=== PATIENT | female | born 1955 | race Caucasian/White ===

== ENCOUNTER 2017-02-11 21:53 | Emergency (ER) | payer MEDICARE, BC, OTHER ==
[~2017-02-11] VITALS: Ht 121.9 cm; Wt 68.0 kg
[~2017-02-11 21:53] MED LIST: ALBU8.5H6 IH; ALBU8.5H8 IH; Acetaminophen PO; BACL20TA PO; CIPR500T94 PO; ECON15CR TP; ESOM20CA PO; FLUT16SP2 NS; FLUT9.9S NS; HYDR-2762 PO; LORA10TA68 PO; MELO15TA23 PO; NYST15CR2 TP; OXYB10TA PO; OXYB5SYR2 PO; OXYB5TAB7 PO; Sulfamethoxazole/Trimethoprim PO
[2017-02-11 21:57] VITALS: BP 156/95
--- NOTE | 2017-02-11 23:16 | PHYS DOC ---
General Chief Complaint: URINE CATHETER PROBLEM Stated Complaint: CATHERTER PROB Time Seen by MD: 21:57 Source: patient, old records Exam Limitations: no limitations Problems: History of Present Illness Initial Comments Pt is 62/F to ED via EMS for bonilla problem. Pt states approx 2200 tonight rolled over in bed and awoke to wet linens. Upon inspection found her bonilla catheter to be accidentally removed. Pt is paraplegic with mcc bonilla catheter dependence. No other c/o. Timing/Duration: 1/2 hour Severity: moderate Modifying Factors: improves with other Associated Symptoms: denies symptoms Allergies: Coded Allergies: penicillin G (Verified Allergy, Severe, Swell up/red., 09/26/15) levofloxacin (Verified Allergy, Intermediate, 09/26/15) aspirin (Verified Adverse Reaction, Intermediate, N/V, 09/26/15) enoxaparin sodium (Verified Adverse Reaction, Intermediate, Mouth swells. , 09/26/15) prochlorperazine edisylate (Verified Adverse Reaction, Intermediate, "I feel high", 09/26/15) prochlorperazine maleate (Verified Adverse Reaction, Intermediate, ) Past Medical History Medical History: asthma, urinary tract infection, other (MS, paraplegia) Surgical History: noncontributory Family History Significant Family History: no pertinent family hx Social History Smoker: non-smoker Alcohol: none Drugs: none Physical Exam General Appearance: no apparent distress Ear, Nose, Throat: hearing grossly normal, normal pharynx, other (severe dental caries) Neck: non-tender, supple Respiratory: normal breath sounds, no respiratory distress Gastrointestinal: non tender, soft Neurologic/Psychiatric: 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 Pt denies c/o, requesting a ride home. Departure Time of Disposition: 23:15 Disposition: 01 HOME, SELF-CARE Diagnosis: Bonilla Catheter Problem Condition: IMPROVED Patient Instructions: Bonilla Catheter Care, Adult Additional Instructions: Continue current medications, plan of care, and Bonilla catheter maintenance. Follow up with your doctor and return to ED as needed. NOELLE VEAG DO February 11, 2017 23:16
== END 2017-02-12 01:04 | disposition home or self-care (01) ==
LOC: ER 21:53
DX: T83.028A Displacement of other urinary catheter, initial encounter (principal); J45.909 Unspecified asthma, uncomplicated; G82.20 Paraplegia, unspecified; Z87.440 Personal history of urinary (tract) infections; Z88.0 Allergy status to penicillin; Z88.1 Allergy status to other antibiotic agents; Z88.6 Allergy status to analgesic agent; Z88.8 Allergy status to other drugs, medicaments and biological substances
CPT/HCPCS: 51702; 99284-25

== ENCOUNTER 2017-03-16 10:09 | Emergency (ER) | payer MEDICARE, BC, OTHER ==
[~2017-03-16] VITALS: Ht 137.2 cm; Wt 64.0 kg
[2017-03-16 10:22] VITALS: BP 156/95
--- NOTE | 2017-03-16 11:32 | PHYS DOC ---
Text Text Bonilla catheter replaced without difficulty. Patient discharged home with bonilla care instructions No other complaints at this time. General Chief Complaint: URINE CATHETER PROBLEM Stated Complaint: CATHETER PROBLEM Time Seen by MD: 10:20 Source: patient Exam Limitations: no limitations Problems: History of Present Illness Initial Comments Patient has chronic indwelling bonilla catheter secondary to MS. She had spontaneous falling out of the bonilla some time during the night last night. She is presenting with request for replacement of bonilla catheter. Timing/Duration: this morning Prior Genitourinary Problems: similar symptoms Associated Symptoms: denies symptoms Allergies: Coded Allergies: penicillin G (Verified Allergy, Severe, Swell up/red., 09/26/15) levofloxacin (Verified Allergy, Intermediate, 09/26/15) aspirin (Verified Adverse Reaction, Intermediate, N/V, 09/26/15) enoxaparin sodium (Verified Adverse Reaction, Intermediate, Mouth swells. , 09/26/15) prochlorperazine edisylate (Verified Adverse Reaction, Intermediate, "I feel high", 09/26/15) prochlorperazine maleate (Verified Adverse Reaction, Intermediate, ) Past Medical History Medical History: other (MS) Family History Significant Family History: no pertinent family hx Social History Smoker: non-smoker Alcohol: none Drugs: none Review of Systems Constitutional: no symptoms reported Genitourinary: no symptoms reported Musculoskeletal: no symptoms reported All Other Systems: Reviewed and Negative Physical Exam General Appearance: WD/WN, no apparent distress Cardiovascular/Respiratory: regular rate, rhythm, normal breath sounds Pelvic: external exam normal Back: normal inspection Extremities: other (flaccidity of the lower extremities. No noted edema. No rashes. 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
== END 2017-03-16 13:04 | disposition home or self-care (01) ==
LOC: ER 10:09
DX: T83.028A Displacement of other urinary catheter, initial encounter (principal); G35 Multiple sclerosis; Z88.0 Allergy status to penicillin; Z88.1 Allergy status to other antibiotic agents; Z88.6 Allergy status to analgesic agent; Z88.8 Allergy status to other drugs, medicaments and biological substances
CPT/HCPCS: 51702; 99284-25

== ENCOUNTER 2017-05-10 08:34 | Emergency (ER) | payer MEDICARE, BC, OTHER ==
[~2017-05-10] VITALS: Ht 137.2 cm; Wt 64.0 kg
--- NOTE | 2017-05-10 09:01 | PHYS DOC ---
General Chief Complaint: CATHETER CHANGE Stated Complaint: CATHETER CHANGE Time Seen by MD: 08:36 Source: patient, old records Exam Limitations: no limitations Problems: History of Present Illness Initial Comments Patient is a 62-year-old female with history of MS and fully dependent who comes to the department complaining of a Bonilla catheter problem. Patient states that she thinks the balloon deflated on her Bonilla overnight and it slipped out. She has come to the emergency department requesting reinsertion of her Bonilla catheter. She denies any complaints at all and doesn't want any other testing or treatments. Timing/Duration: 4-6 hours Severity: mild Modifying Factors: improves with other Associated Symptoms: denies symptoms Allergies: Coded Allergies: penicillin G (Verified Allergy, Severe, Swell up/red., 09/26/15) levofloxacin (Verified Allergy, Intermediate, 09/26/15) aspirin (Verified Adverse Reaction, Intermediate, N/V, 09/26/15) enoxaparin sodium (Verified Adverse Reaction, Intermediate, Mouth swells. , 09/26/15) prochlorperazine edisylate (Verified Adverse Reaction, Intermediate, "I feel high", 09/26/15) prochlorperazine maleate (Verified Adverse Reaction, Intermediate, ) Past Medical History Medical History: asthma, urinary tract infection, other (MS) Surgical History: noncontributory Family History Significant Family History: no pertinent family hx Social History Smoker: non-smoker Alcohol: none Drugs: none Review of Systems Constitutional: denies chills, denies fever Respiratory: denies cough, denies shortness of breath Cardiovascular: denies chest pain, denies palpitations Gastrointestinal: denies diarrhea, denies vomiting Genitourinary: see HPI Musculoskeletal: denies back pain, denies joint swelling, denies neck pain Psychiatric/Neurological: denies headache, denies numbness, denies paresthesia Physical Exam General Appearance: WD/WN, no apparent distress Ear, Nose, Throat: hearing grossly normal, normal ENT inspection Neck: non-tender, supple Gastrointestinal: non tender, soft Back: no CVA tenderness, no vertebral tenderness Neurologic/Psychiatric: alert, normal mood/affect, oriented x 3 Skin: normal color, warm/dry Orders, Labs, Meds RN reinserted catheter without issue. Patient expressed gratitude and requests discharge from the facility. Departure Time of Disposition: 08:59 Disposition: 01 HOME, SELF-CARE Diagnosis: bonilla catheter problem Condition: IMPROVED Patient Instructions: Bonilla Catheter Care, Adult Additional Instructions: Continue current meds. Resume Bonilla catheter care. Follow up with your doctor in 7-10 days for recheck. Return to ED with new or changing symptoms. NOELLE VEGA DO May 10, 2017 09:01
[2017-05-10 09:20] VITALS: BP 166/95
== END 2017-05-10 09:23 | disposition home or self-care (01) ==
LOC: ER 08:34
DX: T83.098A Other mechanical complication of other urinary catheter, initial encounter (principal); J45.909 Unspecified asthma, uncomplicated; Z87.440 Personal history of urinary (tract) infections; Z88.8 Allergy status to other drugs, medicaments and biological substances; Z88.6 Allergy status to analgesic agent; Z88.1 Allergy status to other antibiotic agents; Z88.0 Allergy status to penicillin
CPT/HCPCS: 51702; 99284-25

== ENCOUNTER 2018-03-28 10:21 | Emergency (ER) | payer MEDICARE, BC, OTHER ==
[~2018-03-28] VITALS: Ht 137.2 cm; Wt 54.4 kg
--- NOTE | 2018-03-28 10:34 | PHYS DOC ---
Past History Past Medical History: Asthma, UTI, Other Past Surgical History: Other Smoking: Non-smoker Alcohol Use: None Drug Use: None Adult General Chief Complaint Chief Complaint: PAIN ON URINATION HPI HPI Patient is a 63-year-old female who presents with EMS for evaluation of dysuria and concern for UTI. She has a Chang catheter in place which was changed most recently 2 weeks ago. She has a history of MS and lives alone and states that she has some help a few hours a day as well as a power chair. She has some mild suprapubic discomfort and noticed that her urine has been cloudy and there is been more sediment than usual. She is alert and oriented 4, calm, and appears to be in no distress this time. Review of Systems Review of Systems Constitutional: Denies fever or chills [] Eyes: Denies change in visual acuity, redness, or eye pain [] HENT: Denies nasal congestion or sore throat [] Respiratory: Denies cough or shortness of breath [] Cardiovascular: No additional information not addressed in HPI [] GI: Denies abdominal pain, nausea, vomiting, bloody stools or diarrhea [] : +dysuria Musculoskeletal: Denies back pain or joint pain [] Integument: Denies rash or skin lesions [] Neurologic: Denies headache, focal weakness or sensory changes [] paraplegic Endocrine: Denies polyuria or polydipsia [] All other systems were reviewed and found to be within normal limits, except as documented in this note. Allergies Allergies Allergies Coded Allergies Type Severity Reaction Last Updated Verified penicillin G Allergy Severe Swell up/red. 09/26/15 Yes levofloxacin Allergy Intermediate 09/26/15 Yes aspirin Adverse Reaction Intermediate N/V 09/26/15 Yes enoxaparin sodium Adverse Reaction Intermediate Mouth swells. 09/26/15 Yes prochlorperazine edisylate Adverse Reaction Intermediate "I feel high" Yes prochlorperazine maleate Adverse Reaction Intermediate 09/26/15 Yes Physical Exam Physical Exam Constitutional: Well developed, well nourished, no acute distress, non-toxic appearance. [] HENT: Normocephalic, atraumatic, bilateral external ears normal, oropharynx moist, no oral exudates, nose normal. [] Eyes: PERRLA, EOMI, conjunctiva normal, no discharge. [] Neck: Normal range of motion, no tenderness, supple, no stridor. [] Cardiovascular:Heart rate regular rhythm, no murmur [] Lungs & Thorax: Bilateral breath sounds clear to auscultation [] Abdomen: Bowel sounds normal, soft, no masses, no pulsatile masses. [] mild suprapubic ttp, Chang catheter in place Skin: Warm, dry, no erythema, no rash. [] Back: No tenderness, no CVA tenderness. [] Extremities: No tenderness, no cyanosis, no clubbing, ROM intact, no edema. [] Neurologic: Alert and oriented X 3, normal motor function, normal sensory function, +paraplegic Psychologic: Affect normal, judgement normal, mood normal. [] Current Patient Data Lab Results Laboratory Tests Test 03/28/18 11:03 Urine Collection Type U cath Urine Color Yellow Urine Clarity Cloudy Urine pH 6.5 Urine Specific Lanse 1.010 Urine Protein Trace Urine Glucose (UA) Neg mg/dL Urine Ketones (Stick) Neg mg/dL Urine Blood Large Urine Nitrite Pos Urine Bilirubin Neg Urine Urobilinogen Dipstick 0.2 mg/dL Urine Leukocyte Esterase Mod Urine RBC 3-5 /HPF Urine WBC 11-20 /HPF Urine Squamous Epithelial Cells Many /LPF Urine Amorphous Sediment Present /HPF Urine Bacteria Mod /HPF Urine Mucus Slight /LPF Current Medications Medications (Trade) Dose Ordered Sig/Monie Route PRN Reason Start Time Stop Time Status Last Admin Dose Admin Trimethoprim/ Sulfamethoxazole (Bactrim Ds) 2 tab 1X ONCE PO 03/28/18 12:20 03/28/18 12:21 EKG EKG [] Radiology/Procedures Radiology/Procedures [] Course & Med Decision Making Course & Med Decision Making Pertinent Labs and Imaging studies reviewed. (See chart for details) @1200 - Patient updated on urinalysis results which show a UTI. Bactrim given in the emergency department and she will go home with a prescription for the same . She is follow-up with her PCP next 2-3 days. Encouraged patient to return to the emergency department for new or worsening symptoms such as fevers or chills or worsening discomfort. Dragon Disclaimer Dragon Disclaimer This electronic medical record was generated, in whole or in part, using a voice recognition dictation system. Departure Departure: Impression: Primary Impression: UTI (lower urinary tract infection) Disposition: HOME, SELF-CARE Condition: STABLE Referrals: STANLEY HAYES (PCP) Patient Instructions: Urinary Tract Infection Additional Instructions: Take the prescribed medicine as directed. Return to the ER immediately for new or worsening symptoms. Follow-up with your doctor in the next 2-3 days. Scripts Sulfamethoxazole/Trimethoprim (BACTRIM DS TABLET) 1 Each Tablet 1 TAB PO BID, #20 TAB Prov: TERRENCE LOWRY DO 03/28/18 TERRENCE LOWRY DO Mar 28, 2018 10:34
[2018-03-28 11:18] LABS: BILIRUBIN,URINE NEG (NEG); CLARITY,URINE CLOUDY; COLOR,URINE YELLOW; GLUCOSE,URINE NEG (NEG)
[2018-03-28 11:19] LABS: AMORPHOUS SEDIMENT,UR PRESENT /HPF; BACTERIA,URINE MOD /HPF (0-FEW); NITRITE,URINE POS (NEG); SQUAMOUS EPITHELIAL CELL,UR MANY /LPF; UROBILINOGEN,URINE 0.2 mg/dL (0.2 mg/dL)
[2018-03-28] MEDS ORDERED: SULF1TAB24 PO (12:09)
[2018-03-28 12:15] VITALS: BP 172/92
[2018-03-28] MEDS ORDERED: SMZ/TMP 800/160MG TABLET. PO ONE (12:20)
== END 2018-03-28 13:23 | disposition home or self-care (01) ==
LOC: ER 10:21
DX: N39.0 Urinary tract infection, site not specified (principal); J45.909 Unspecified asthma, uncomplicated; Z88.0 Allergy status to penicillin; Z88.1 Allergy status to other antibiotic agents; Z88.6 Allergy status to analgesic agent; Z88.8 Allergy status to other drugs, medicaments and biological substances
CPT/HCPCS: 81001; 99283

== ENCOUNTER 2018-10-09 11:35 | Emergency (ER) | payer MEDICARE, BC, OTHER ==
[~2018-10-09] VITALS: Ht 142.2 cm; Wt 63.5 kg
[~2018-10-09 11:35] MED LIST changes: +ALBU2.5V8 IH; -ALBU8.5H8 IH; -HYDR-2762 PO; +HYDR-2765 PO; +SULF1TAB24 PO
[2018-10-09 12:00] VITALS: BP 182/94
[2018-10-09] MEDS ORDERED: CLIN300C8 PO (12:08)
--- NOTE | 2018-10-09 14:21 | ED.ADGEN ---
Past History Past Medical History: Asthma, UTI, Other Past Surgical History: Other Smoking: Non-smoker Alcohol Use: None Drug Use: None Adult General Chief Complaint Chief Complaint dental pain HPI HPI Patient is a 63-year-old female with history of multiple sclerosis and chronic dental caries who presents with right lower anterior mandible swelling and increased pain over the past 24 hours. No dysphonia and dysphagia or drooling. No fever chills or sweats. No other acute symptoms or complaints.[] Review of Systems Review of Systems Review symptoms as per history of present illness. All other review symptoms are negative. All other systems were reviewed and found to be within normal limits, except as documented in this note. Allergies Allergies Allergies Coded Allergies Type Severity Reaction Last Updated Verified penicillin G Allergy Severe Swell up/red. 09/26/15 Yes levofloxacin Allergy Intermediate 09/26/15 Yes aspirin Adverse Reaction Intermediate N/V 09/26/15 Yes enoxaparin sodium Adverse Reaction Intermediate Mouth swells. 09/26/15 Yes prochlorperazine edisylate Adverse Reaction Intermediate "I feel high" Yes prochlorperazine maleate Adverse Reaction Intermediate 09/26/15 Yes Physical Exam Physical Exam Constitutional: Well developed, well nourished, no acute distress, non-toxic appearance. [] HENT: Normocephalic, atraumatic, bilateral external ears normal, oropharynx moist, numerous dental erosions with right anterior lower gingival swelling, fullness, no facial cellulitis. no dysphonia, trismus or drooling.[] Eyes: PERRLA, EOMI, conjunctiva normal, no discharge. [] Neck: Normal range of motion, no tenderness, supple, no stridor. [] fidelina. [] Psychologic: Affect normal, judgement normal, mood normal. [] Current Patient Data Vital Signs Vital Signs Date Time Temp Pulse Resp B/P (MAP) Pulse Ox O2 Delivery O2 Flow Rate FiO2 10/09/18 12:00 86 20 100 10/09/18 11:35 98.0 EKG EKG [] Radiology/Procedures Radiology/Procedures [] Course & Med Decision Making Course & Med Decision Making Pertinent Labs and Imaging studies reviewed. (See chart for details) [Antibiotics prescribed. Recommend dentist PARRISH Final Impression Final Impression [1. dental pain secondary to caries 2 facial swelling] Dragon Disclaimer Dragon Disclaimer This electronic medical record was generated, in whole or in part, using a voice recognition dictation system. RACHEAL MIN DO Oct 09, 2018 14:21
== END 2018-10-09 12:00 | disposition home or self-care (01) ==
LOC: ER 11:35
DX: K03.2 Erosion of teeth (principal); K02.9 Dental caries, unspecified; R22.0 Localized swelling, mass and lump, head; J45.909 Unspecified asthma, uncomplicated; Z87.440 Personal history of urinary (tract) infections; Z88.0 Allergy status to penicillin; Z88.6 Allergy status to analgesic agent; Z88.8 Allergy status to other drugs, medicaments and biological substances
CPT/HCPCS: 99284

== ENCOUNTER 2018-11-03 21:14 | Inpatient (IN) | payer MEDICARE, BC, OTHER ==
[~2018-11-03] VITALS: Ht 142.2 cm; Wt 65.5 kg
[~2018-11-03 21:14] MED LIST changes: +CLIN300C8 PO
--- NOTE | 2018-11-03 21:21 | ED.ADGEN ---
Past History Past Medical History: Asthma, DVT, UTI, Other Past Medical History MS Past Surgical History: Other Smoking: Non-smoker Alcohol Use: None Drug Use: None Adult General Chief Complaint Chief Complaint "..I ve been feeling off..I crapped all over myself tonight...I been having diarrhea.. or pudding stools the last three days.. and I had some shaking tonight..and tightness in my throat....I do have MS..but I live at home with coroner/medical examiner that come in..." " " I have had some fast heart rates..." HPI HPI Patient is a 63 year old female who presents with above hx of diarrhea, neck tightness, tachycardia and shaking. Pt. denies history of intake of bad food, sick contacts or travel. Patient denies any contact with reptiles, birds, and then begins or ill animals. Is exposed to a cat named "Jose Domingo". Patient does have a history of MS. Patient recently on a course of clindamycin 1 week ago. No history of colitis with her or family members . Patient normally follows with Dr. Salazar. Review of Systems Review of Systems Constitutional: History of chills [] Eyes: Denies change in visual acuity, redness, or eye pain [] HENT: Denies nasal congestion or sore throat [] Respiratory: Denies cough or shortness of breath [] Cardiovascular: No additional information not addressed in HPI [] GI: History of, nausea, vomiting, denies diarrhea [] : Denies dysuria or hematuria [] Musculoskeletal: Denies back pain or joint pain [] Integument: Denies rash or skin lesions [] Neurologic: Denies headache, focal weakness or sensory changes [] Endocrine: Denies polyuria or polydipsia [] All other systems were reviewed and found to be within normal limits, except as documented in this note. Family History Family History Noncontributory Current Medications Current Medications Current Medications Medications (Trade) Dose Ordered Sig/Monie Start Time Stop Time Status Last Admin Dose Admin Ceftriaxone Sodium 1 gm/ Sodium Chloride 50 ml @ 100 mls/hr 1X ONCE 11/04/18 00:30 11/04/18 00:59 DC 11/04/18 01:22 100 MLS/HR Info (Do NOT chart on this entry -- for MONITORING) 1 each PRN DAILY PRN 11/04/18 00:30 11/06/18 00:29 Iohexol (Omnipaque 350 Mg/ml) 100 ml 1X ONCE 11/04/18 00:30 11/04/18 00:31 DC 11/04/18 00:56 100 ML Lactated Ringer's 1,000 ml @ 1,000 mls/hr Q1H 11/03/18 21:23 11/03/18 22:23 DC 11/03/18 21:23 1,000 MLS/HR Ondansetron HCl (Zofran) 4 mg PRN Q4HRS PRN 11/04/18 01:00 11/05/18 00:59 Potassium Chloride (KCl Oral Soln) 40 meq 1X ONCE 11/04/18 01:00 11/04/18 01:21 DC 11/04/18 01:39 40 MEQ Allergies Allergies Allergies Coded Allergies Type Severity Reaction Last Updated Verified penicillin G Allergy Severe Swell up/red. 11/04/18 Yes levofloxacin Allergy Intermediate 09/26/15 Yes aspirin Adverse Reaction Intermediate N/V 09/26/15 Yes enoxaparin sodium Adverse Reaction Intermediate Mouth swells. 09/26/15 Yes prochlorperazine edisylate Adverse Reaction Intermediate "I feel high" Yes prochlorperazine maleate Adverse Reaction Intermediate 09/26/15 Yes Physical Exam Physical Exam Constitutional: Moderate distress, non-toxic appearance. [] HENT: Normocephalic, atraumatic, bilateral external ears normal, oropharynx moist, no oral exudates, nose normal. [] Eyes: PERRLA, EOMI, conjunctiva normal, no discharge. [] Neck: Normal range of motion, no tenderness, supple, no stridor. [] Cardiovascular: Tachycardia Heart rate regular rhythm, no murmur [] Lungs & Thorax: Bilateral breath sounds equal at apex with few basilar crackles on auscultation [] Abdomen: Bowel sounds hyperactive, soft, no tenderness, no masses, no pulsatile masses. [] Chronic bonilla placement. Skin: Warm, dry, no erythema, no rash. [] Back: No tenderness, no CVA tenderness. [] Extremities: No tenderness, no cyanosis, no clubbing, bilateral foot drop and lower limb weakness-chronic from MS, bilateral leg and ankle edema. [] Neurologic: Alert and oriented X 3, normal motor function, normal sensory function, no focal deficits noted. [] Psychologic: Affect anxious, judgement normal, mood normal. [] Current Patient Data Vital Signs Vital Signs Date Time Temp Pulse Resp B/P (MAP) Pulse Ox O2 Delivery O2 Flow Rate FiO2 11/04/18 00:19 85 16 197/133 (154) 97 Room Air 11/03/18 21:26 98.1 Lab Results Laboratory Tests Test 11/03/18 22:00 White Blood Count 9.2 x10^3/uL (4.0-11.0) Red Blood Count 5.01 x10^6/uL (3.50-5.40) Hemoglobin 14.8 g/dL (12.0-15.5) Hematocrit 43.5 % (36.0-47.0) Mean Corpuscular Volume 87 fL (79-100) Mean Corpuscular Hemoglobin 30 pg (25-35) Mean Corpuscular Hemoglobin Concent 34 g/dL (31-37) Red Cell Distribution Width 13.9 % (11.5-14.5) Platelet Count 391 x10^3/uL (140-400) Neutrophils (%) (Auto) 63 % (31-73) Lymphocytes (%) (Auto) 26 % (24-48) Monocytes (%) (Auto) 7 % (0-9) Eosinophils (%) (Auto) 2 % (0-3) Basophils (%) (Auto) 1 % (0-3) Neutrophils # (Auto) 5.9 x10^3uL (1.8-7.7) Lymphocytes # (Auto) 2.4 x10^3/uL (1.0-4.8) Monocytes # (Auto) 0.7 x10^3/uL (0.0-1.1) Eosinophils # (Auto) 0.2 x10^3/uL (0.0-0.7) Basophils # (Auto) 0.1 x10^3/uL (0.0-0.2) Prothrombin Time 9.9 SEC (9.4-11.4) Prothrombin Time INR 1.0 (0.9-1.1) PTT 24 SEC (23-33) D-Dimer (Didi) 1.59 mg/L (0.00-0.50) H Urine Collection Type Unknown Urine Color Yellow Urine Clarity Cloudy Urine pH 5.5 Urine Specific [place] >=1.030 Urine Protein 30 mg/dl (NEG-TRACE) Urine Glucose (UA) Neg mg/dL (NEG) Urine Ketones (Stick) Neg mg/dL (NEG) Urine Blood Mod (NEG) Urine Nitrite Pos (NEG) Urine Bilirubin Neg (NEG) Urine Urobilinogen Dipstick 0.2 mg/dL (0.2 mg/dL) Urine Leukocyte Esterase Mod (NEG) Urine RBC 1-2 /HPF (0-2) Urine WBC Tntc /HPF (0-4) Urine Squamous Epithelial Cells Few /LPF Urine Bacteria Many /HPF (0-FEW) Sodium Level 141 mmol/L (136-145) Potassium Level 3.4 mmol/L (3.5-5.1) L Chloride Level 103 mmol/L (98-107) Carbon Dioxide Level 25 mmol/L (21-32) Anion Gap 13 (6-14) Blood Urea Nitrogen 13 mg/dL (7-20) Creatinine 0.8 mg/dL (0.6-1.0) Estimated GFR (Cockcroft-Gault) 72.7 Glucose Level 98 mg/dL (70-99) Calcium Level 9.2 mg/dL (8.5-10.1) Magnesium Level 2.1 mg/dL (1.8-2.4) Total Bilirubin 0.3 mg/dL (0.2-1.0) Direct Bilirubin 0.1 mg/dL (0.0-0.2) Aspartate Amino Transferase (AST) 15 U/L (15-37) Alanine Aminotransferase (ALT) 27 U/L (14-59) Alkaline Phosphatase 92 U/L (46-116) Creatine Kinase 55 U/L (26-192) Troponin I Quantitative < 0.017 ng/mL (0-0.055) IE-Vbh-G-Type Natriuretic Peptide 121 pg/mL (0-124) Total Protein 8.1 g/dL (6.4-8.2) Albumin 4.0 g/dL (3.4-5.0) Lipase 207 U/L (73-393) Urine Opiates Screen Neg (NEG) Urine Methadone Screen Neg (NEG) Urine Barbiturates Neg (NEG) Urine Phencyclidine Screen Neg (NEG) Urine Amphetamine/Methamphetamine Neg (NEG) Urine Benzodiazepines Screen Neg (NEG) Urine Cocaine Screen Neg (NEG) Urine Cannabinoids Screen Neg (NEG) Urine Ethyl Alcohol Neg (NEG) EKG EKG My interpretation EKG shows a sinus rhythm at 81 bpm. There is some leftward axis. Some nonspecific contour changes. But no findings acute STEMI of contralateral changes. There is some baseline artifact.[] Radiology/Procedures Radiology/Procedures My interpretation of acute abd. shows possible Rt. lower infiltrate. No free air under diaphragm. Non- specific bowel gas pattern. CT of chest show possible Rt. Lower Lobe pul. embolism. See formal when available. US- leg pending at time of admission. Course & Med Decision Making Course & Med Decision Making Pertinent Labs and Imaging studies reviewed. (See chart for details) Admit to Dr. Viera- tavon cheung. and tx. [] Final Impression Final Impression 1. Diarrhea 2. Increased Weakness 3. Hx. MS- dx 13 yrs 4. Elevated D-dimer 1.59 5. Accelerated HTN 6. UTI 7. Hypokalemia 8. Pulmonary Embolism Rt. Lower Dragon Disclaimer Dragon Disclaimer This electronic medical record was generated, in whole or in part, using a voice recognition dictation system. Dragon Disclaimer This chart was dictated in whole or in part using Voice Recognition software in a busy, high-work load, and often noisy Emergency Department environment. It may contain unintended and wholly unrecognized errors or omissions. Discharge Summary Visit Information Final Diagnosis Problems Medical Problems: (1) Accelerated hypertension Status: Acute (2) Gastroenteritis Status: Acute Brief Hospital Course Allergies Allergies Coded Allergies Type Severity Reaction Last Updated Verified penicillin G Allergy Severe Swell up/red. 11/04/18 Yes levofloxacin Allergy Intermediate 09/26/15 Yes aspirin Adverse Reaction Intermediate N/V 09/26/15 Yes enoxaparin sodium Adverse Reaction Intermediate Mouth swells. 09/26/15 Yes prochlorperazine edisylate Adverse Reaction Intermediate "I feel high" Yes prochlorperazine maleate Adverse Reaction Intermediate 09/26/15 Yes Vital Signs Vital Signs Date Time Temp Pulse Resp B/P (MAP) Pulse Ox O2 Delivery O2 Flow Rate FiO2 11/04/18 00:19 85 16 197/133 (154) 97 Room Air 11/03/18 21:26 98.1 Lab Results Laboratory Tests Test 11/03/18 22:00 White Blood Count 9.2 x10^3/uL (4.0-11.0) Red Blood Count 5.01 x10^6/uL (3.50-5.40) Hemoglobin 14.8 g/dL (12.0-15.5) Hematocrit 43.5 % (36.0-47.0) Mean Corpuscular Volume 87 fL (79-100) Mean Corpuscular Hemoglobin 30 pg (25-35) Mean Corpuscular Hemoglobin Concent 34 g/dL (31-37) Red Cell Distribution Width 13.9 % (11.5-14.5) Platelet Count 391 x10^3/uL (140-400) Neutrophils (%) (Auto) 63 % (31-73) Lymphocytes (%) (Auto) 26 % (24-48) Monocytes (%) (Auto) 7 % (0-9) Eosinophils (%) (Auto) 2 % (0-3) Basophils (%) (Auto) 1 % (0-3) Neutrophils # (Auto) 5.9 x10^3uL (1.8-7.7) Lymphocytes # (Auto) 2.4 x10^3/uL (1.0-4.8) Monocytes # (Auto) 0.7 x10^3/uL (0.0-1.1) Eosinophils # (Auto) 0.2 x10^3/uL (0.0-0.7) Basophils # (Auto) 0.1 x10^3/uL (0.0-0.2) Prothrombin Time 9.9 SEC (9.4-11.4) Prothromb Time International Ratio 1.0 (0.9-1.1) Activated Partial Thromboplast Time 24 SEC (23-33) D-Dimer (Didi) 1.59 mg/L (0.00-0.50) Urine Collection Type Unknown Urine Color Yellow Urine Clarity Cloudy Urine pH 5.5 Urine Specific [place] >=1.030 Urine Protein 30 mg/dl (NEG-TRACE) Urine Glucose (UA) Neg mg/dL (NEG) Urine Ketones (Stick) Neg mg/dL (NEG) Urine Blood Mod (NEG) Urine Nitrite Pos (NEG) Urine Bilirubin Neg (NEG) Urine Urobilinogen Dipstick 0.2 mg/dL (0.2 mg/dL) Urine Leukocyte Esterase Mod (NEG) Urine RBC 1-2 /HPF (0-2) Urine WBC Tntc /HPF (0-4) Urine Squamous Epithelial Cells Few /LPF Urine Bacteria Many /HPF (0-FEW) Sodium Level 141 mmol/L (136-145) Potassium Level 3.4 mmol/L (3.5-5.1) Chloride Level 103 mmol/L (98-107) Carbon Dioxide Level 25 mmol/L (21-32) Anion Gap 13 (6-14) Blood Urea Nitrogen 13 mg/dL (7-20) Creatinine 0.8 mg/dL (0.6-1.0) Estimated GFR (Cockcroft-Gault) 72.7 Glucose Level 98 mg/dL (70-99) Calcium Level 9.2 mg/dL (8.5-10.1) Magnesium Level 2.1 mg/dL (1.8-2.4) Total Bilirubin 0.3 mg/dL (0.2-1.0) Direct Bilirubin 0.1 mg/dL (0.0-0.2) Aspartate Amino Transf (AST/SGOT) 15 U/L (15-37) Alanine Aminotransferase (ALT/SGPT) 27 U/L (14-59) Alkaline Phosphatase 92 U/L (46-116) Creatine Kinase 55 U/L (26-192) Troponin I Quantitative < 0.017 ng/mL (0-0.055) JK-Qve-X-Type Natriuretic Peptide 121 pg/mL (0-124) Total Protein 8.1 g/dL (6.4-8.2) Albumin 4.0 g/dL (3.4-5.0) Lipase 207 U/L (73-393) Urine Opiates Screen Neg (NEG) Urine Methadone Screen Neg (NEG) Urine Barbiturates Neg (NEG) Urine Phencyclidine Screen Neg (NEG) Urine Amphetamine/Methamphetamine Neg (NEG) Urine Benzodiazepines Screen Neg (NEG) Urine Cocaine Screen Neg (NEG) Urine Cannabinoids Screen Neg (NEG) Urine Ethyl Alcohol Neg (NEG) Brief Hospital Course Ms. Tyler is a 63 old female who presented with above complaints and found to have Rt. lower PE- Admitted to Dr. Viera Discharge Information Condition at Discharge: Stable Dischare Medications Current Medications Lactated Ringer's 1,000 ml @ 1,000 mls/hr Q1H IV Last administered on 1/24/ 19at 21:23; Admin Dose 1,000 MLS/HR; Start 11/03/18 at 21:23; Stop 11/03/18 at 22:23; Status DC Ceftriaxone Sodium 1 gm/ Sodium Chloride 50 ml @ 100 mls/hr 1X ONCE IV ; Start 11/04/18 at 00:15; Stop 11/04/18 at 00:44; Status UNV Iohexol (Omnipaque 350 Mg/ml) 100 ml 1X ONCE IV Last administered on at 00:56; Admin Dose 100 ML; Start 11/04/18 at 00:30; Stop 11/04/18 at 00:31; Status DC Info (Do NOT chart on this entry -- for MONITORING) 1 each PRN DAILY PRN MC SEE COMMENTS; Start 11/04/18 at 00:30; Stop 11/06/18 at 00:29 Ceftriaxone Sodium 1 gm/ Sodium Chloride 50 ml @ 100 mls/hr 1X ONCE IV Last administered on 11/04/18at 01:22; Admin Dose 100 MLS/HR; Start 11/04/18 at 00:30 ; Stop 11/04/18 at 00:59; Status DC Ondansetron HCl (Zofran) 4 mg PRN Q4HRS PRN IV NAUSEA/VOMITING; Start 11/04/18 at 01:00; Stop 11/05/18 at 00:59 Potassium Chloride (KCl Oral Soln) 40 meq 1X ONCE PO Last administered on 11/04at 01:39; Admin Dose 40 MEQ; Start 11/04/18 at 01:00; Stop 11/04/18 at 01:21 ; Status DC Active Scripts Active Clindamycin Hcl 300 Mg Capsule 1 Cap PO TID Bactrim Ds Tablet (Sulfamethoxazole/Trimethoprim) 1 Each Tablet 1 Tab PO BID [Acetaminophen] 500 MG Tablet 1,000 Mg PO PRN QID PRN Reported Claritin (Loratadine) 10 Mg Tablet 10 Mg PO DAILY PRN As needed for allergies LAST DOSE GIVEN: DATE: TIME: NEXT DOSE DUE: DATE: TIME: Nystatin-Triamcinolone Cream (Nystatin/Triamcin) 15 Gm Cream..g. 1 Debra TP BID PRN Apply as needed for rash to groin/pelvic area LAST DOSE GIVEN: DATE: TIME: NEXT DOSE DUE: DATE: TIME: Econazole Nitrate 15 Gm Cream..g. 1 Debra TP PRN TID PRN As needed for foot rash LAST DOSE GIVEN: DATE: TIME: NEXT DOSE DUE: DATE: TIME: Hydrocodone-Apap 7.5-325 (Hydrocodone Bit/Acetaminophen) 1 Each Tablet 1 Tab PO PRN Q6HRS PRN As needed for pain LAST DOSE GIVEN: DATE: TIME: NEXT DOSE DUE: DATE: TIME: Oxybutynin Chloride Er (Oxybutynin Chloride) 10 Mg Tab.er.24 10 Mg PO BID Bladder spasms LAST DOSE GIVEN: DATE: TIME: NEXT DOSE DUE: DATE: TIME: Flonase (Fluticasone Propionate) 16 Gm [place].susp 1 Spr NS DAILY PRN As needed for nasal congestion LAST DOSE GIVEN: DATE: TIME: NEXT DOSE DUE: DATE: TIME: Meloxicam 15 Mg Tablet 15 Mg PO DAILY PRN As needed for shoulder pain LAST DOSE GIVEN: DATE: TIME: NEXT DOSE DUE: DATE: TIME: Baclofen 20 Mg Tablet 20 Mg PO TID Muscle spasms LAST DOSE GIVEN: DATE: TIME: NEXT DOSE DUE: DATE: TIME: Albuterol Sulfate Hfa Inhaler (Albuterol Sulfate) 8.5 Gm Hfa.aer.ad 2 Puff IH Q4HRS PRN As needed for Shortness of breath LAST DOSE GIVEN: DATE: TIME: NEXT DOSE DUE: DATE: TIME: RAFFI CLARKE MD Nov 03, 2018 21:21
[2018-11-03] MEDS ORDERED: IV RINGERS SOLUTION,LACTATED 1,000 ML IV SCH (21:23)
[2018-11-03 22:17] LABS: BASO # 0.1 x10^3/uL (0.0-0.2); BASO % 1 % (0-3); EOS # 0.2 x10^3/uL (0.0-0.7); EOS % 2 % (0-3); HEMATOCRIT 43.5 % (36.0-47.0); HEMOGLOBIN 14.8 g/dL (12.0-15.5); LYMPH # 2.4 x10^3/uL (1.0-4.8); LYMPH % 26 % (24-48); MEAN CORPUSCULAR HEMOGLOBIN 30 pg (25-35); MEAN CORPUSCULAR HGB CONC 34 g/dL (31-37); MEAN CORPUSCULAR VOLUME 87 fL (79-100); MONO # 0.7 x10^3/uL (0.0-1.1); MONO % 7 % (0-9); NEUT # 5.9 x10^3uL (1.8-7.7); NEUT % 63 % (31-73); PLATELET COUNT 391 x10^3/uL (140-400); RED BLOOD COUNT 5.01 x10^6/uL (3.50-5.40); RED CELL DISTRIBUTION WIDTH 13.9 % (11.5-14.5); WHITE BLOOD COUNT 9.2 x10^3/uL (4.0-11.0)
[2018-11-03 22:21] LABS: BARBITURATES NEG (NEG); BENZODIAZEPINES NEG (NEG); CANNABINOIDS NEG (NEG); COCAINE NEG (NEG); METHADONE NEG (NEG); OPIATES NEG (NEG); PHENCYCLIDINE NEG (NEG)
[2018-11-03 22:22] LABS: AMPHETAMINE/METHAMPHETAMINE NEG (NEG)
[2018-11-03 22:38] LABS: CALCIUM 9.2 mg/dL (8.5-10.1); CREATININE 0.8 mg/dL (0.6-1.0); DIRECT BILIRUBIN 0.1 mg/dL (0.0-0.2); GFR 72.7; MAGNESIUM 2.1 mg/dL (1.8-2.4); POTASSIUM 3.4 mmol/L (3.5-5.1); TOTAL BILIRUBIN 0.3 mg/dL (0.2-1.0); TOTAL PROTEIN 8.1 g/dL (6.4-8.2)
[2018-11-03 22:42] LABS: BILIRUBIN,URINE NEG (NEG); CLARITY,URINE CLOUDY; COLOR,URINE YELLOW; GLUCOSE,URINE NEG (NEG); NITRITE,URINE POS (NEG); UROBILINOGEN,URINE 0.2 mg/dL (0.2 mg/dL)
[2018-11-03 22:43] LABS: BACTERIA,URINE MANY /HPF (0-FEW); SQUAMOUS EPITHELIAL CELL,UR FEW /LPF; WBC,URINE TNTC /HPF (0-4)
--- NOTE | 2018-11-03 23:03 | EKG ---
[address] [address] Test Date: 2018-11-03 Test Time: 21:54:52 Pat Name: EVERETT MONTALVO Department: Room: Gender: F Shactor: : [id number] Requested By: RAFFI CLARKE Order Number: [id number] Reading MD: Ronal Andino Measurements Intervals Early Rate: 81 P: -28 [place]: 144 QRS: -12 QRSD: 72 T: 16 QT: 300 QTc: 353 Interpretive Statements SINUS RHYTHM LEFTWARD AXIS QRS(T) CONTOUR ABNORMALITY CONSISTENT WITH INFERIOR INFARCT AGE UNDETERMINED ABNORMAL ECG Electronically Signed On 11-09-2018 17:35:21 HAT SIZER by Ronal Andino
[2018-11-04] MEDS ORDERED: CONTRAST GIVEN MC PRN (00:30)
[2018-11-04] MEDS ORDERED: IOHEXOL 350 MG/ML 100 ML VIAL. IV ONE (00:30)
[2018-11-04] MEDS ORDERED: ONDANSETRON PF 4 MG/2 ML VIAL. IV PRN (01:00)
[2018-11-04] MEDS ORDERED: POTASSIUM CHLORIDE 20 MEQ/15 ML ORAL LIQUID. PO ONE (01:00)
[2018-11-04] MEDS ORDERED: cloNIDine TTS-2 1 PATCH PATCH TD ONE (01:15)
[2018-11-04] MEDS ORDERED: IV NORMAL SALINE 50ML 50 ML ONE (01:15)
[2018-11-04] MEDS ORDERED: cefTRIAXone SODIUM 1 GM VIAL IV ONE (01:15)
[2018-11-04] MEDS ORDERED: cloNIDine HCL 0.1 MG TABLET PO ONE (01:15)
--- NOTE | 2018-11-04 01:26 | RAD ---
Examination: CT angiography chest HISTORY: History of elevated d-dimer, dyspnea COMPARISON: 10/24/2013 TECHNIQUE: Axial CT angiography images of chest were performed with IV contrast. Coronal and sagittal 3-D MIP reformats are performed Exposure: One or more of the following individualized dose reduction techniques were utilized for this examination: 1. Automated exposure control 2. Adjustment of the mA and/or kV according to patient size 3. Use of iterative reconstruction technique FINDINGS: The central airways are patent. Mild cardiomegaly. The ascending aorta measures 3.5 cm in transverse dimension. There is no evidence of filling defect identified in the main pulmonary arterial trunk and right and left main pulmonary arteries. There is filling defect identified in the right lower lobe pulmonary arterial branch, best visualized on series 7 image #62. There is a 4 mm nodule identified in the right middle lobe of the lung. Mild patchy bibasilar lung airspace opacities likely atelectasis or infiltrates. Mild decreased attenuation noted throughout the liver likely hepatic steatosis. Gallstones identified in the proximal gallbladder. Thickening of the left renal cortex probably scarring changes. Moderate-sized hiatal hernia. Mild degenerative changes thoracic spine. IMPRESSION: 1. Findings consistent with pulmonary embolus in the right lower lobe pulmonary arterial branch. 2. 4 mm nodule identified in the right mid lower lung. Follow-up per Fleischner Society guidelines with a follow-up CT in 6-12 months. 2. Mild patchy bibasilar lung airspace opacities likely atelectasis or infiltrates. 4. Cholelithiasis. 5. Moderate size hiatal hernia. These results were called to Dr. Del Real and verified by read back at the time of dictation. S Electronically signed by: Basilio Moran MD (11/04/2018 1:21 AM) [facility]
--- NOTE | 2018-11-04 01:50 | RAD ---
Examination: Acute abdomen series HISTORY: History of diarrhea, nausea COMPARISON: None available. FINDINGS: Low lung volumes and technique accentuates heart size and pulmonary vascularity. There is no acute infiltrate or visualized pneumothorax.Calcified densities identified in the right upper quadrant of the abdomen probably gallstones. The bowel gas pattern appears unremarkable. IMPRESSION: 1. Unremarkable bowel gas pattern. 2. Cholelithiasis. Electronically signed by: Basilio Moran MD (11/04/2018 1:46 AM) [facility]
[2018-11-04 02:27] VITALS: BP 141/82
[2018-11-04] MEDS ORDERED: LABETALOL 20 MG/4 ML DISP.SYRIN. IVP ONE (02:30)
[2018-11-04 06:21] VITALS: BP 128/78
[2018-11-04] MEDS: RIVAROXABAN 15 MG TABLET. PO SCH ×2 (08:37→17:36)
[2018-11-04] MEDS ORDERED: IV RINGERS SOLUTION,LACTATED 1,000 ML IV SCH (09:00)
[2018-11-04] MEDS ORDERED: NON FORMULARY ITEM (Loratadine (Claritin) 10 MG) PO PRN (11:00)
[2018-11-04] MEDS ORDERED: ACETAMINOPHEN 500 MG TABLET PO PRN (11:00)
[2018-11-04] MEDS ORDERED: HYDROcodone/APAP 7.5/325MG 1 TAB TABLET PO PRN (11:00)
[2018-11-04] MEDS ORDERED: ALBUTEROL SULFATE 8GM INHALER. IH PRN (11:00)
[2018-11-04] MEDS ORDERED: HYDR-2155 PO (11:11)
[2018-11-04] MEDS ORDERED: RANI150C PO (11:11)
[2018-11-04] MEDS ORDERED: NYSTATIN/TRIAMCIN TOPICAL CREAM 15GM TUBE. TP PRN (11:15)
[2018-11-04] MEDS ORDERED: ECONAZOLE 1% TP PRN ×2 (11:15→18:30)
[2018-11-04] MEDS ORDERED: ALBUTEROL SULFATE 2.5 MG/3 ML NEBU. NEB PRN (11:30)
[2018-11-04 11:31] VITALS: BP 123/85
[2018-11-04] MEDS ORDERED: FURO20TA3 PO (11:38)
[2018-11-04] MEDS ORDERED: HYDROcodone/APAP 5/325MG 1 TAB TABLET PO PRN (11:45)
--- NOTE | 2018-11-04 11:53 | HP ---
ADMIT DATE: 11/04/2018 HISTORY OF PRESENT ILLNESS: The patient came in through the Emergency Room. The patient has been having problems with stools for the last 3 days, shaking, short of breath as well as having some fast heart rates. The patient noted some tachycardia and shaking. She denies any history of eating anything abnormal. The patient apparently has not been around anybody. She has a history of chronic MS remitting type. The patient came in through the Emergency Room and was admitted for observation for her diarrhea, dehydration and the like. She had a positive D-dimer and there was a PE noted in her right lower lobe, probably related to her MS in the sense that she does not mobilize as well. The patient was admitted for her observation for PE and/or diarrhea. PAST MEDICAL HISTORY: Multiple sclerosis, hypertension, history of DVT, respiratory disorders, acute bronchitis, obesity, multiple urinary tract infections, chronic Chang, paraplegic fracture of the left ankle, history of depression and refuses vaccination. ALLERGIES: SHE HAS ALLERGIES TO ASPIRIN, LOVENOX, SODIUM, LEVAQUIN, PENICILLIN G, COMPAZINE. MEDICATIONS: The patient's medications including Claritin 10 mg, albuterol treatments, baclofen 20 mg t.i.d., Meloxicam 15 mg, hydrocodone, Flonase nasal spray, econazole nitrate for rash, nystatin for rash, oxybutynin ER 10 mg p.o. b.i.d. and Tylenol p.r.n. FAMILY HISTORY: Noncontributory. Apparently, she does have a sister. SOCIAL HISTORY: Denies smoking, alcohol or drug use. REVIEW OF SYSTEMS: The patient denies any headaches, visual changes, blurred vision, double vision, photophobia. She denies any shortness of breath, chest pain, or abdominal pain. Denies any melena, hematochezia, or hematemesis. Loose stools are just that loose, they are not watery, but soft, pudding like. Neurologically, baseline paraplegia to the lower extremities, quite flaccid other than that neurologically, alert and oriented. PHYSICAL EXAMINATION: VITAL SIGNS: This is a pleasant white female, came in initially with extremely high blood pressure upwards of 196/110, respiratory rate 18, pulse 90, afebrile. The patient's blood pressure has come down to 128/78, respiratory rate 18, pulse 66, afebrile. HEENT: The patient's head was atraumatic, normocephalic. Eyes: PERRLA without jaundice. Mouth and throat were normal. NECK: Supple, without JVD, carotid bruits or thyromegaly. LUNGS: Diminished throughout, but basically they were clear. CARDIOVASCULAR: Regular sinus rhythm, although tachycardic at times. ABDOMEN: The patient's abdomen was soft, nontender. It has some hyperactive bowel sounds, but other than that unremarkable there. EXTREMITIES: Legs show marked lucidity and some atrophy to the muscle sclerosis of the lower extremities. The patient's pulses noted distally. NEUROLOGICAL: Alert. Speech is fluent, spontaneous, appropriate. Cranial nerves 2-12 are grossly intact. LABORATORY DATA: The patient's labs did show an elevated D-dimer and as noted her CTA demonstrated a blood clot in the pulmonary emboli in the right lower lobe. She also had a nodule that needed to be followed up in 6-12 months. She has possible atelectasis, probably from lying in bed much, taking deep breaths, history of cholelithiasis and a hiatal hernia. The patient otherwise seems to be making good progress overall and with some IV fluids, seemed to improve dramatically. She received some lactated Ringer's to rehydrate her. Her other medications have been reordered and she had been given a dose of ceftriaxone to cover her multiple medical issues there. Her urine did show too numerous to count white blood cells. Urine culture pending. We will continue to monitor the patient accordingly IV antibiotic therapy as well as the like. IMPRESSION: Pulmonary emboli, diarrhea, urinary tract infection, multiple sclerosis in remission, hypokalemia. She will be placed on Xarelto 15 mg p.o. b.i.d. for her right lower lobe pulmonary emboli. Continue other breathing treatments and make further assessment on her. She also had a CTA of the abdomen as noted and showed cholelithiasis there. We will start her on also Rocephin and gentamicin for her urinary tract infection until cultures are return. JUAN PABLO FELIX MD DR: SAVI/josesito JOB#: [id number] / [id number]
[2018-11-04] MEDS: FAMOTIDINE 20 MG TABLET PO SCH (12:38)
[2018-11-04] MEDS: GENTAMICIN SULFATE 240 MG in IV NORMAL SALINE 100ML 100 ML IV SCH (12:40)
[2018-11-04] MEDS: GENTAMICIN PER PHARMACY MC PRN (13:05)
--- NOTE | 2018-11-04 13:51 | RAD ---
Bilateral lower extremity venous ultrasound, 11/04/2018: History: Pulmonary embolus Duplex evaluation of the deep veins in the lower extremities was performed including grayscale, color-flow and spectral Doppler analysis. The femoral and popliteal veins demonstrate normal compressibility and normal responses to distal augmentation maneuvers. Color imaging of those vessels shows no evidence of intraluminal clot. The calf veins could not be adequately visualized in this patient due to difficulties in patient positioning. IMPRESSION: There is no sonographic evidence of deep vein thrombosis in either lower extremity from the level of the groin down to the popliteal fossa. Electronically signed by: Felipe Marx MD (11/04/2018 1:47 PM) [facility]
[2018-11-04] MEDS: BACLOFEN 20 MG TABLET PO SCH ×2 (14:00→20:39)
[2018-11-04 15:46] VITALS: BP 119/76
[2018-11-04 20:00] VITALS: BP 120/77
[2018-11-04] MEDS: OXYBUTYNIN CHLORIDE 5 MG TABLET PO SCH (20:36)
[2018-11-04] MEDS ORDERED: GENTAMICIN RANDOM LEVEL. MC ONE (21:00)
[2018-11-04] MEDS ORDERED: IBUPROFEN 600 MG TABLET. PO SCH (21:00)
[2018-11-04 23:19] VITALS: BP 128/85
[2018-11-05] MEDS ORDERED: CALCIUM CARBONATE 500 MG TAB.CHEW PO PRN (02:45)
[2018-11-05 05:56] VITALS: BP 127/80
[2018-11-05 06:40] LABS: BASO # 0.1 x10^3/uL (0.0-0.2); BASO % 1 % (0-3); EOS # 0.3 x10^3/uL (0.0-0.7); EOS % 5 % (0-3); HEMATOCRIT 35.8 % (36.0-47.0); HEMOGLOBIN 12.2 g/dL (12.0-15.5); LYMPH # 2.1 x10^3/uL (1.0-4.8); LYMPH % 31 % (24-48); MEAN CORPUSCULAR HEMOGLOBIN 30 pg (25-35); MEAN CORPUSCULAR HGB CONC 34 g/dL (31-37); MEAN CORPUSCULAR VOLUME 87 fL (79-100); MONO # 0.6 x10^3/uL (0.0-1.1); MONO % 8 % (0-9); NEUT # 3.7 x10^3uL (1.8-7.7); NEUT % 55 % (31-73); PLATELET COUNT 316 x10^3/uL (140-400); WHITE BLOOD COUNT 6.8 x10^3/uL (4.0-11.0)
[2018-11-05 06:47] LABS: CALCIUM 8.6 mg/dL (8.5-10.1); CREATININE 0.7 mg/dL (0.6-1.0); GFR 84.8
[2018-11-05] MEDS: RIVAROXABAN 15 MG TABLET. PO SCH ×2 (08:59→17:17)
[2018-11-05] MEDS ORDERED: MELOXICAM 15 MG TABLET. PO PRN (09:00)
[2018-11-05] MEDS: BACLOFEN 20 MG TABLET PO SCH ×2 (09:00→14:00)
[2018-11-05] MEDS: FUROSEMIDE 20 MG TABLET PO SCH (09:00)
[2018-11-05] MEDS: CETIRIZINE HCL 10 MG TABLET PO PRN (09:00)
[2018-11-05] MEDS ORDERED: IV RINGERS SOLUTION,LACTATED 1,000 ML IV PRN (09:00)
[2018-11-05] MEDS: OXYBUTYNIN CHLORIDE 5 MG TABLET PO SCH ×2 (09:01→21:20)
[2018-11-05] MEDS: FAMOTIDINE 20 MG TABLET PO SCH (09:01)
[2018-11-05 12:50] VITALS: BP 111/75
[2018-11-05 15:45] VITALS: BP 99/64
[2018-11-05] MEDS ORDERED: BACLOFEN 20 MG TABLET PO PRN (17:30)
[2018-11-05] MEDS ORDERED: IBUPROFEN 600 MG TABLET. PO PRN (17:30)
[2018-11-05 19:45] VITALS: BP 116/76
[2018-11-05] MEDS: LACTOBACILLUS RHAMNOSUS GG 1 CAPSULE. PO SCH (21:20)
--- NOTE | 2018-11-05 22:10 | PN ---
DATE: SUBJECTIVE: The patient is a 63-year-old paraplegic. The patient has been having problems with her bowels for the last 3 days prior to admission, had been on some antibiotics, but there was a couple of weeks prior to that. The patient also was noted to have tachycardia and shaking. The patient is dehydrated. Her stool was rejected for C. diff because it was too far. She is doing a little bit better. OBJECTIVE: VITAL SIGNS: Blood pressure 127/80, respiration 18, pulse 80, afebrile. GENERAL: The patient is alert and oriented. Speech fluent, has been afebrile. LUNGS: Diminished, but clear. CARDIOVASCULAR: Stable. EXTREMITIES: the patient has a leg bag. She has positive D-dimer and that was consistent for pulmonary emboli in her right lower lobe. She has been started on Xarelto 15 b.i.d. for that. We will continue to monitor accordingly on that and make further evaluation. Her venous Dopplers were negative. JUAN PABLO FELIX MD DR: SAVI/josesito JOB#: [id number] / [id number]
[2018-11-06] MEDS: GENTAMICIN SULFATE 240 MG in IV NORMAL SALINE 100ML 100 ML IV SCH (00:41)
[2018-11-06 06:39] VITALS: BP 110/70
[2018-11-06] MEDS: GENTAMICIN PER PHARMACY MC PRN (07:26)
[2018-11-06] MEDS: RIVAROXABAN 15 MG TABLET. PO SCH ×2 (08:38→17:02)
[2018-11-06] MEDS: FAMOTIDINE 20 MG TABLET PO SCH (08:38)
[2018-11-06] MEDS: LACTOBACILLUS RHAMNOSUS GG 1 CAPSULE. PO SCH ×2 (08:38→21:46)
[2018-11-06] MEDS: FUROSEMIDE 20 MG TABLET PO SCH (08:38)
[2018-11-06] MEDS: OXYBUTYNIN CHLORIDE 5 MG TABLET PO SCH ×2 (08:38→21:47)
[2018-11-06] MEDS ORDERED: MECLIZINE 12.5 MG TABLET. PO PRN (11:15)
[2018-11-06 11:33] VITALS: BP 123/72
[2018-11-06 15:29] VITALS: BP 117/68
[2018-11-06 19:08] VITALS: BP 108/72
--- NOTE | 2018-11-06 21:53 | PN ---
DATE: SUBJECTIVE: A 63-year-old female with history of paraplegia as well as a pulmonary embolus, which she is in here for. Patient also noted she has been having a bladder infection. Cultures are still pending on that issue as well. The patient had too numerous to count white blood cells, still waiting for final culture report there. Otherwise, she is a little bit lightheaded today. Otherwise, she denies chest pain, shortness of breath, abdominal pain. Denies any melena, hematochezia, or hematemesis. OBJECTIVE: VITAL SIGNS: Blood pressure 110/70, respiration 16, pulse 68 and afebrile. GENERAL: The patient is alert and oriented x 3. Speech fluent, spontaneous, appropriate. Cranial nerves 2-12 grossly intact. LUNGS: Clear to auscultation. CARDIOVASCULAR: Regular sinus rhythm, S1, S2, without murmur, rub, thrill, or extra heart sound. ABDOMEN: Soft, nontender, no rebound or guarding. Positive bowel sounds. EXTREMITIES: The patient has flaccidity to her legs, of course with the paraplegia. The patient also has DVT negative, PE positive in the right lobe. PLAN: The patient continued to be monitored carefully, IV antibiotic therapy continues, along with a pulmonary emboli in the right lower lobe, urinary tract infection, paraplegia, lightheadedness and elevated D-dimer. JUAN PABLO FELIX MD DR: SAVI/josesito JOB#: [id number] / [id number]
[2018-11-06 23:19] VITALS: BP 139/84
[2018-11-07 06:24] VITALS: BP 118/66
[2018-11-07] MEDS: FAMOTIDINE 20 MG TABLET PO SCH (08:37)
[2018-11-07] MEDS: LACTOBACILLUS RHAMNOSUS GG 1 CAPSULE. PO SCH ×2 (08:37→20:46)
[2018-11-07] MEDS: OXYBUTYNIN CHLORIDE 5 MG TABLET PO SCH ×2 (08:37→20:47)
[2018-11-07] MEDS: FUROSEMIDE 20 MG TABLET PO SCH (08:37)
[2018-11-07] MEDS: RIVAROXABAN 15 MG TABLET. PO SCH ×2 (08:37→17:01)
[2018-11-07 10:52] VITALS: BP 129/85
[2018-11-07 10:59] VITALS: BP_SYST 130; BP_SYST 133; BP_DIAS 77; BP_DIAS 81
[2018-11-07 11:20] LABS: BASO # 0.1 x10^3/uL (0.0-0.2); BASO % 1 % (0-3); EOS # 0.3 x10^3/uL (0.0-0.7); EOS % 5 % (0-3); HEMATOCRIT 41.2 % (36.0-47.0); HEMOGLOBIN 13.8 g/dL (12.0-15.5); LYMPH # 1.9 x10^3/uL (1.0-4.8); LYMPH % 27 % (24-48); MEAN CORPUSCULAR HEMOGLOBIN 30 pg (25-35); MEAN CORPUSCULAR HGB CONC 33 g/dL (31-37); MEAN CORPUSCULAR VOLUME 89 fL (79-100); MONO # 0.6 x10^3/uL (0.0-1.1); MONO % 9 % (0-9); NEUT % 58 % (31-73); PLATELET COUNT 354 x10^3/uL (140-400); RED BLOOD COUNT 4.66 x10^6/uL (3.50-5.40); WHITE BLOOD COUNT 6.9 x10^3/uL (4.0-11.0)
[2018-11-07] MEDS: GENTAMICIN SULFATE 240 MG in IV NORMAL SALINE 100ML 100 ML IV SCH (11:29)
[2018-11-07 11:33] LABS: ALBUMIN 3.4 g/dL (3.4-5.0); ALBUMIN/GLOBULIN RATIO 0.9 (1.0-1.7); CREATININE 0.8 mg/dL (0.6-1.0); GFR 72.7; POTASSIUM 3.9 mmol/L (3.5-5.1); TOTAL BILIRUBIN 0.3 mg/dL (0.2-1.0); TOTAL PROTEIN 7.3 g/dL (6.4-8.2)
[2018-11-07 15:14] VITALS: BP 128/77
--- NOTE | 2018-11-07 15:20 | RAD ---
EXAM: Maxillofacial bone CT without contrast. HISTORY: Congestion. TECHNIQUE: Computed tomographic images the maxillofacial bones were obtained without contrast. *One or more of the following individualized dose reduction techniques were utilized for this examination: 1. Automated exposure control. 2. Adjustment of the mA and/or kV according to patient size. 3. Use of iterative reconstruction technique. COMPARISON: None. FINDINGS: There is minimal bilateral maxillary and ethmoid sinus mucosal thickening. The ostiomeatal units are patent. There is mild rightward nasal septal deviation. There is no sinus opacification or air-fluid level. There is no sinus wall erosion or significant thickening. There are dental restorations and missing teeth. The mastoid air cells are clear. The temporomandibular joints are intact. There is mild cerebral volume loss. There is mild diffuse calvarial thickening. IMPRESSION: Minimal maxillary and ethmoid sinus mucosal thickening. Electronically signed by: Rica Jarquin MD (11/07/2018 3:16 PM) [id number]
[2018-11-07 19:56] VITALS: BP 127/80
[2018-11-07] MEDS ORDERED: GENTAMICIN RANDOM LEVEL. MC ONE (21:00)
--- NOTE | 2018-11-07 21:06 | PN ---
DATE: 11/07/2018 SUBJECTIVE: The patient is resting, slightly propped up in bed and in no apparent respiratory distress, awake, alert. On questioning her, she continued to complain of being dizzy and lightheaded. She apparently was admitted with diarrhea for the last three days, shaking, short of breath as well as having some fast heart rate. The patient noted some tachycardia and shaking. Denied any history of eating anything abnormal. The patient apparently has not been around anybody. She has a history of chronic illness with relapses and remission for the last 12 years. She was brought to the Emergency Room and was admitted to treat her dehydration as well as diarrhea. She was found to have a positive D-dimer, was found to have a PE noted in her right lower lobe for which she was started on Xarelto. Her stool was sent for culture and sensitivity and was negative for salmonella, Shigella, Campylobacter and Shiga toxin. Her urine culture showed growth of more than 100,000 colony forming units per mL of mixed urogenital jenna. She was treated with IV gentamicin. PHYSICAL EXAMINATION: GENERAL: When I examined her today, she looked well and was clearly in no apparent respiratory distress. She was pale, but no jaundice, cyanosis or thyromegaly. No jugular venous distension. No lower limb edema. VITAL SIGNS: Her heart rate was 68, blood pressure 118/66, temperature was 97.4, respiratory rate was 16 and oxygen saturation was 93% on room air. HEAD, EYES, EARS, NOSE AND THROAT: Showed normocephalic, atraumatic. NECK: Supple. HEART: Showed normal first and second heart sounds. No gallop, rub or murmur. CHEST: Clear to auscultation. No crepitation or rhonchi. ABDOMEN: Distended, soft, nontender. NEUROLOGIC: She is awake, alert, responding appropriately. All cranial nerves intact. She moves upper extremities without difficulty. She has functional paraplegia with neurogenic bladder requiring indwelling Chang catheter. Her intake over the last 24 hours was 1150, output was 2000. LABORATORY DATA: As of this morning, her most recent lab work showed a white cell count of 6800, hemoglobin 12.2, hematocrit 36, MCV 87 and platelet count of 316,000. Her chemistry showed a serum sodium 140, potassium 4, chloride 106, bicarbonate 26, anion gap of 8, BUN 17, creatinine 0.7. Estimated GFR was 85 mL per minute. Her glucose was 100, calcium was 8.6. TSH is normal at 3.1261. Her prothrombin time was 9.9, INR 1, aPTT was 24 and the D-dimer was high at 1.59 mg. Her urinalysis showed the urine was yellow, cloudy with a pH of 5.5, specific gravity more than 1.030 with small amount of protein. The urine was negative for glucose, ketones, moderate amount of blood. Positive for nitrite and leukocyte esterase, 1-2 rbc's, too numerous to count wbc's and many bacteria. IMAGING: She had a CT angiography of the chest, which showed that the patient has findings consistent with pulmonary embolus in the right lower lobe, pulmonary arterial branch. She has a 4-mm nodule identified in the right lower lung. Followed up her Fleischner Society Guidelines with a followup CT in 6-12 months, mild patchy bibasilar lung airspace opacities, likely atelectasis or infiltrate. She has cholelithiasis and moderate-sized hiatal hernia. ASSESSMENT AND PLAN: The patient was apparently started on gentamicin as well as rivaroxaban. My plan is to check her orthostatics lying and sitting, which basically showed no difference. Her lying was 133/81 and sitting was 130/77. Her heart rate was 75 lying and 77 sitting. I will also arrange for her to have a CT scan of her paranasal sinuses and I will repeat all her labs again today given that she is on gentamicin as well as meloxicam and furosemide. NATALIA QUIJANO MD DR: OTONIEL/josesito JOB#: [id number] / [id number]
[2018-11-07] MEDS: FLUTICASONE 50MCG/NASAL SPRAY 16GM BOTTLE. NS PRN (22:11)
[2018-11-07 22:31] VITALS: BP 144/86
[2018-11-08 06:15] VITALS: BP 130/74
[2018-11-08] MEDS: CETIRIZINE HCL 10 MG TABLET PO PRN (08:15)
[2018-11-08] MEDS: LACTOBACILLUS RHAMNOSUS GG 1 CAPSULE. PO SCH (08:15)
[2018-11-08] MEDS: RIVAROXABAN 15 MG TABLET. PO SCH (08:15)
[2018-11-08] MEDS: OXYBUTYNIN CHLORIDE 5 MG TABLET PO SCH (08:15)
[2018-11-08] MEDS: FUROSEMIDE 20 MG TABLET PO SCH (08:15)
[2018-11-08] MEDS: FAMOTIDINE 20 MG TABLET PO SCH (08:16)
[2018-11-08] MEDS: FLUTICASONE 50MCG/NASAL SPRAY 16GM BOTTLE. NS PRN (08:18)
[2018-11-08 10:55] VITALS: BP 125/84
[2018-11-08] MEDS ORDERED: RIVA10TA PO (14:28)
--- NOTE | 2018-11-08 20:53 | DS ---
DATE OF DISCHARGE: 11/08/2018 HOSPITAL COURSE: The patient is a 63-year-old female patient with longstanding history of multiple sclerosis with paraplegia and neurogenic bladder, who was admitted basically with a history of diarrhea for the last 3 days, shaking, shortness of breath and tachycardia. There was no history of ill contact. She was evaluated in the Emergency Room for her diarrhea and dehydration. She had a positive D-dimer and CT angio of the chest showed that she has pulmonary embolism. She was admitted and was started on IV antibiotic in the form of gentamicin. She was also started on rivaroxaban 15 mg twice a day for 7 days and did very well. She has had no further episodes of diarrhea. She remained hemodynamically stable and afebrile. Her stool for culture was negative for salmonella, Shigella, Campylobacter and Shiga toxins and her urine culture showed growth of more than 100,000 colony forming units per mL of mixed urogenital jenna. The gentamicin was discontinued. As she remained stable, a decision was made to discharge her home with home health. PHYSICAL EXAMINATION: GENERAL: When I saw her this afternoon, she looked well and was clearly in no apparent respiratory distress, pale, but no jaundice, cyanosis, or thyromegaly. No jugular venous distention. No lower limb edema. VITAL SIGNS: Her heart rate was 92, blood pressure was 125/84, temperature was 97.4, respiratory rate 20, and oxygen saturation was 96%. HEAD, EYES, EARS, NOSE AND THROAT: Normocephalic, atraumatic. NECK: Supple. HEART: Showed normal first and second heart sounds. No gallop, rub or murmur. CHEST: Clear to auscultation. No crepitation or rhonchi. ABDOMEN: Distended, soft, nontender. NEUROLOGIC: She is awake, alert, responding appropriately. All cranial nerves intact. She moves upper extremities without difficulty. She has paraplegia with neurogenic bladder requiring indwelling Chang catheter. Her intake over the last 24 hours was 860, output was 1650. LABORATORY DATA: As of yesterday morning, her white cell count was 6900, hemoglobin 13.8, hematocrit 41, MCV 89 and platelet count 354,000. Her chemistry showed serum sodium 139, potassium 3.9, chloride 102, bicarbonate 28, anion gap of 9, BUN 16, creatinine 0.8, estimated GFR was 73 mL per minute. Her glucose was 93, calcium was 9. Total bilirubin, AST, ALT, alkaline phosphatase were normal. Total protein was 7.3, albumin 3.4. Her prothrombin time was 9.9, INR of 1, aPTT was 24. D-dimer was 1.59. Urinalysis was essentially unremarkable, although it was positive for nitrite and moderate amount of leukocyte esterase, 1-2 rbc's, too numerous to count wbc's, too many bacteria. The culture was negative. Toxic screen was essentially negative. Acute abdomen series was unremarkable. It showed unremarkable bowel gas pattern, cholelithiasis. CT angio of the chest showed that the patient has findings consistent with pulmonary embolus in the right lower lobe pulmonary arterial branches. She has cholelithiasis, mild patchy bibasilar lung airspace opacities, likely atelectasis and her lower extremity venous ultrasound showed no evidence of deep vein thrombosis in either lower extremity from the groin to the popliteal fossa and her maxillofacial CT scan without contrast showed minimal maxillary and ethmoid sinus mucosal thickening. DISCHARGE MEDICATIONS: The patient was discharged home to continue on rivaroxaban 15 mg twice a day for 7 days. She has received 4 days of treatment here. She will continue for another 3 days and then she will switch to 20 mg once a day for at least 6 months. Acetaminophen 1000 mg 4 times a day, albuterol sulfate by nebulizer every 4 hours, Flonase 1 spray to each nostril twice a day, furosemide 20 mg daily, hydrocodone/APAP 5/325 one tablet twice a day, oxybutynin chloride 10 mg twice a day, ranitidine 150 mg daily. I recommended that she should discontinue meloxicam given that she is now on blood thinner and she might bleed from her stomach. FINAL DISCHARGE DIAGNOSES: 1. Acute gastroenteritis, resolved. 2. Acute pulmonary embolism. 3. Multiple sclerosis. 4. Neurogenic bladder. 5. Functional paraplegia. NATALIA QUIJANO MD DR: OTONIEL/josesito JOB#: [id number] / [id number]
== END 2018-11-08 16:27 | disposition home health service (06) | DRG 391 ==
LOC: ER 21:14 → 1 SOUTH 11-04 01:00
PROVIDERS: ADMIT Internal Medicine; ATTEND Internal Medicine
DX: K52.9 Noninfective gastroenteritis and colitis, unspecified (principal); I26.99 Other pulmonary embolism without acute cor pulmonale; N39.0 Urinary tract infection, site not specified; E87.6 Hypokalemia; E86.0 Dehydration; F44.4 Conversion disorder with motor symptom or deficit; G35 Multiple sclerosis; I10 Essential (primary) hypertension; J45.909 Unspecified asthma, uncomplicated; Z79.01 Long term (current) use of anticoagulants; Z86.711 Personal history of pulmonary embolism; Z86.718 Personal history of other venous thrombosis and embolism; Z87.440 Personal history of urinary (tract) infections; E66.9 Obesity, unspecified; Z68.32 Body mass index [BMI] 32.0-32.9, adult; F32.9 Major depressive disorder, single episode, unspecified; Z88.1 Allergy status to other antibiotic agents; Z88.0 Allergy status to penicillin; Z88.8 Allergy status to other drugs, medicaments and biological substances; N31.9 Neuromuscular dysfunction of bladder, unspecified
CPT/HCPCS: 36415; 70486; 71275; 74022; 80048; 80053; 80076; 80170; 80307; 81001; 82550; 83690; 83735; 83880; 84443; 84484; 85025; 85379; 85610; 85730; 87045; 87086; 93005; 93970; 96361; 96365; G0238; J0696; J1580; J7120; Q9967; 99285-25

== ENCOUNTER 2019-01-09 02:14 | Inpatient (IN) | payer MEDICARE, BC, OTHER ==
[~2019-01-09] VITALS: Ht 137.2 cm; Wt 62.3 kg
[~2019-01-09 02:14] MED LIST changes: +FURO20TA3 PO; +HYDR-2155 PO; +RANI150C PO; +RIVA10TA PO
[2019-01-09] MEDS ORDERED: IV RINGERS SOLUTION,LACTATED 1,000 ML IV SCH ×2 (02:30→04:00)
[2019-01-09] MEDS ORDERED: CLOPIDOGREL BISULFATE 75 MG TABLET PO ONE (02:30)
[2019-01-09 03:17] LABS: BASO # 0.1 x10^3/uL (0.0-0.2); BASO % 0 % (0-3); EOS # 0.1 x10^3/uL (0.0-0.7); EOS % 0 % (0-3); HEMATOCRIT 40.6 % (36.0-47.0); HEMOGLOBIN 13.7 g/dL (12.0-15.5); LYMPH # 1.2 x10^3/uL (1.0-4.8); LYMPH % 8 % (24-48); MEAN CORPUSCULAR HEMOGLOBIN 29 pg (25-35); MEAN CORPUSCULAR HGB CONC 34 g/dL (31-37); MEAN CORPUSCULAR VOLUME 87 fL (79-100); MONO % 7 % (0-9); NEUT # 13.1 x10^3uL (1.8-7.7); NEUT % 85 % (31-73); PLATELET COUNT 329 x10^3/uL (140-400); RED BLOOD COUNT 4.67 x10^6/uL (3.50-5.40); RED CELL DISTRIBUTION WIDTH 13.5 % (11.5-14.5); WHITE BLOOD COUNT 15.3 x10^3/uL (4.0-11.0)
[2019-01-09] MEDS ORDERED: ACETAMINOPHEN 500 MG TABLET PO ONE (03:30)
[2019-01-09] MEDS ORDERED: SMX/TMP 800/160MG 2TABLET STARTPACK. PO ONE (03:30)
[2019-01-09 03:32] LABS: AMPHETAMINE/METHAMPHETAMINE NEG (NEG); BARBITURATES NEG (NEG); BENZODIAZEPINES NEG (NEG); CANNABINOIDS NEG (NEG); COCAINE NEG (NEG); METHADONE NEG (NEG); OPIATES NEG (NEG); PHENCYCLIDINE NEG (NEG)
--- NOTE | 2019-01-09 03:32 | ED.ADGEN ---
Past History Past Medical History: Anxiety, Asthma, DVT, UTI, Other Past Medical History MS x 12 yrs Pul. embolism Past Surgical History: Other Smoking: Non-smoker Alcohol Use: None Drug Use: None Adult General Chief Complaint Chief Complaint ".. I was having these palpitation.. fast heart rate... tonight.. some central chest pain.. and also some pain on the Lt.....but I had a PE about 2 months ago.. and I ve been taking my Xarelto... and I may be getting fever again.. I get a lot of urinary tract infections. .. " HPI HPI Patient is a 63 year old female who presents with complaints of tachycardia, palpitations, central chest pain, subjective fever and chills. Pt. has a history of MS diagnosed approximately 12 years ago. Patient requires frequent urinary catheterizations which she cannot manage herself because of dis coordination and weakness. Patient has multiple allergies to antibiotics. In other meds. Patient also diagnosed with a DVT and recent pulmonary embolism on the left. Patient denies any previous cardiac history. Denies any travel. Patient denies any recent change in meds. Patient denies any specific ill contacts. Patient does have a history of hypertension and is on Lisinopril 20/ HCTZ 25 a day. Review of Systems Review of Systems Constitutional: Subjective fever or chills [] Eyes: Denies change in visual acuity, redness, or eye pain [] HENT: Denies nasal congestion or sore throat [] Respiratory: Denies cough or shortness of breath [] Cardiovascular: No additional information not addressed in HPI [] GI: Denies abdominal pain, nausea, vomiting, bloody stools or diarrhea [] : Denies dysuria or hematuria [] Musculoskeletal: Denies back pain or joint pain. has[]lower limb weakness and foot drop from MS Integument: Denies rash or skin lesions [] Neurologic: Denies headache, focal weakness or sensory changes [] Endocrine: Denies polyuria or polydipsia [] All other systems were reviewed and found to be within normal limits, except as documented in this note. Family History Family History Noncontributory Current Medications Current Medications Current Medications Medications (Trade) Dose Ordered Sig/Monie Start Time Stop Time Status Last Admin Dose Admin Clopidogrel Bisulfate (Plavix) 75 mg 1X ONCE 01/09/19 02:30 01/09/19 02:31 DC 01/09/19 03:17 75 MG Lactated Ringer's 1,000 ml @ 1,000 mls/hr Q1H 01/09/19 02:30 01/09/19 03:29 DC 01/09/19 03:17 1,000 MLS/HR Allergies Allergies Allergies Coded Allergies Type Severity Reaction Last Updated Verified penicillin G Allergy Severe Swell up/red. 11/04/18 Yes levofloxacin Allergy Intermediate 09/26/15 Yes aspirin Adverse Reaction Intermediate N/V 09/26/15 Yes enoxaparin sodium Adverse Reaction Intermediate Mouth swells. 09/26/15 Yes prochlorperazine edisylate Adverse Reaction Intermediate "I feel high" Yes prochlorperazine maleate Adverse Reaction Intermediate 09/26/15 Yes Physical Exam Physical Exam Constitutional: Moderately acute distress, non-toxic appearance. [] HENT: Normocephalic, atraumatic, bilateral external ears normal, oropharynx dry , no oral exudates, nose normal. Very poor dentition Eyes: PERRLA, EOMI, conjunctiva normal, no discharge. [] Neck: Normal range of motion, no tenderness, supple, no stridor. [] Cardiovascular: Tachycardia Heart rate regular rhythm, no murmur [] Lungs & Thorax: Bilateral breath sounds equal at apexes on auscultation [] Abdomen: Bowel sounds normal, soft, no tenderness, no masses, no pulsatile masses. [] Skin: Warm, dry, no erythema, no rash. [] Back: No tenderness, no CVA tenderness. [] Extremities: No tenderness, no cyanosis, footdrop and lower leg weakness from MS , , no edema. [] Neurologic: Alert and oriented X 3, general weakness from MS, , Psychologic: Affect anxious, judgement normal, mood normal. [] Current Patient Data Vital Signs Vital Signs Date Time Temp Pulse Resp B/P (MAP) Pulse Ox O2 Delivery O2 Flow Rate FiO2 01/09/19 02:14 100.9 109 20 97 EKG EKG My interpretation EKG shows a sinus tachycardia at 6 bpm. There is some leftward axis. Nonspecific anterior changes in the septal area. But no findings acute STEMI with contralateral changes.[] Radiology/Procedures Radiology/Procedures My interpretation of chest x-ray shows[]no significant interval change, bilateral basilar atelectasis or low vol. Course & Med Decision Making Course & Med Decision Making Pertinent Labs and Imaging studies reviewed. (See chart for details) Pt. admitted to Dr. Viera with cardiology consult. Have concern for UTI and sepsis with hx of MS. Will start pt. on Bactrim since she is sure that she is not allergic to it. [] Final Impression Final Impression 1. Chest Pain 2. Tachycardia 3. Hx. PE and DVT 2 months ago- on Xarelto 20 4. Fever/Chills 5. Hx MS x 12 yrs. [] 6. Leukocytosis- 15.3 7. UTI- 8. Elevated D-dimer 0.54 9. Hypokalemia 3.2 10. Elevated Bun / Creat 38/1.4- Mild dehydration 11. DM - 161 12. Elevated Lactic acid 2.8 Dragon Disclaimer Dragon Disclaimer This electronic medical record was generated, in whole or in part, using a voice recognition dictation system. Discharge Summary Visit Information Final Diagnosis Problems Medical Problems: (1) Chest pain Status: Acute Brief Hospital Course Allergies Allergies Coded Allergies Type Severity Reaction Last Updated Verified penicillin G Allergy Severe Swell up/red. 11/04/18 Yes levofloxacin Allergy Intermediate 09/26/15 Yes aspirin Adverse Reaction Intermediate N/V 09/26/15 Yes enoxaparin sodium Adverse Reaction Intermediate Mouth swells. 09/26/15 Yes prochlorperazine edisylate Adverse Reaction Intermediate "I feel high" Yes prochlorperazine maleate Adverse Reaction Intermediate 09/26/15 Yes Vital Signs Vital Signs Date Time Temp Pulse Resp B/P (MAP) Pulse Ox O2 Delivery O2 Flow Rate FiO2 01/09/19 02:14 100.9 109 20 97 Brief Hospital Course Ms. Tyler is a 63 old female who presented with fever, chills, tachycardia, cp, hx of MS. Admitted to [facility] with cardiology consult. Discharge Information Condition at Discharge: Improved, Stable Dischare Medications Current Medications Lactated Ringer's 1,000 ml @ 1,000 mls/hr Q1H IV Last administered on at 03:17; Admin Dose 1,000 MLS/HR; Start 01/09/19 at 02:30; Stop 01/09/19 at 03: 29; Status DC Clopidogrel Bisulfate (Plavix) 75 mg 1X ONCE PO Last administered on 01/09/19at 03:17; Admin Dose 75 MG; Start 01/09/19 at 02:30; Stop 01/09/19 at 02:31; Status DC Active Scripts Active Xarelto (Rivaroxaban) 10 Mg Tablet 15 Tab PO BID 7 Days [Acetaminophen] 500 MG Tablet 1,000 Mg PO PRN QID PRN Reported Furosemide 20 Mg Tablet 1 Tab PO DAILY Ranitidine Hcl 150 Mg Capsule 1 Cap PO DAILY Hydrocodone-Apap 5-325 (Hydrocodone Bit/Acetaminophen) 1 Each Tablet 1 Tab PO PRN BID PRN Oxybutynin Chloride Er (Oxybutynin Chloride) 10 Mg Tab.er.24 10 Mg PO BID Bladder spasms LAST DOSE GIVEN: DATE: TIME: NEXT DOSE DUE: DATE: TIME: Flonase (Fluticasone Propionate) 16 Gm Emma.susp 1 Spr NS DAILY PRN As needed for nasal congestion LAST DOSE GIVEN: DATE: TIME: NEXT DOSE DUE: DATE: TIME: Albuterol Sulfate Hfa Inhaler (Albuterol Sulfate) 8.5 Gm Hfa.aer.ad 2 Puff IH Q4HRS PRN As needed for Shortness of breath LAST DOSE GIVEN: DATE: TIME: NEXT DOSE DUE: DATE: TIME: Dragon Disclaimer This chart was dictated in whole or in part using Voice Recognition software in a busy, high-work load, and often noisy Emergency Department environment. It may contain unintended and wholly unrecognized errors or omissions. RAFFI CLARKE MD Jan 09, 2019 03:32
[2019-01-09 03:37] LABS: CALCIUM 9.8 mg/dL (8.5-10.1); CREATININE 1.4 mg/dL (0.6-1.0); DIRECT BILIRUBIN 0.1 mg/dL (0.0-0.2); GFR 38.1; MAGNESIUM 2.4 mg/dL (1.8-2.4); POTASSIUM 3.2 mmol/L (3.5-5.1); TOTAL BILIRUBIN 0.4 mg/dL (0.2-1.0); TOTAL PROTEIN 8.3 g/dL (6.4-8.2)
[2019-01-09 03:38] LABS: BILIRUBIN,URINE NEG (NEG); CLARITY,URINE HAZY; COLOR,URINE YELLOW; GLUCOSE,URINE NEG (NEG)
[2019-01-09 03:39] LABS: BACTERIA,URINE MANY /HPF (0-FEW); NITRITE,URINE POS (NEG); SQUAMOUS EPITHELIAL CELL,UR MOD /LPF; UROBILINOGEN,URINE 0.2 mg/dL (0.2 mg/dL); WBC,URINE >40 /HPF (0-4)
[2019-01-09] MEDS ORDERED: VANCOMYCIN 1 GM in IV NORMAL SALINE 250ML 250 ML IV ONE (03:45)
[2019-01-09] MEDS ORDERED: ONDANSETRON PF 4 MG/2 ML VIAL. IV PRN (03:45)
--- NOTE | 2019-01-09 03:58 | RAD ---
PORTABLE CHEST 1V Clinical History: Chest pain Technique: AP view of the chest was obtained at 01/09/2019 2:18 AM. Comparison: None. Findings: The cardiomediastinal silhouette is normal. The pulmonary vasculature is normal. The lungs and pleural margins are clear. Impression: No evidence of an acute cardiopulmonary process. Electronically signed by: Kieran Connell III, MD (01/09/2019 3:55 AM) [id number]
[2019-01-09] MEDS ORDERED: IV RINGERS SOLUTION,LACTATED 1,000 ML IV ONE (04:00)
[2019-01-09] MEDS ORDERED: VANCOMYCIN 1.5 GM in IV NORMAL SALINE 500ML 500 ML IV ONE (04:00)
[2019-01-09 04:01] LABS: % BANDS 3 % (0-9); % EOS 2 % (0-5); % LYMPHS 6 % (24-48); % MONOS 5 % (0-10); % SEGS 84 % (35-66); PLT ESTIMATE ADEQUATE (ADEQUATE)
[2019-01-09 04:20] VITALS: BP 109/74
[2019-01-09 04:25] LABS: SEDIMENTATION RATE 51 (0-25)
[2019-01-09] MEDS ORDERED: POTASSIUM CHLORIDE 20 MEQ/15 ML ORAL LIQUID. PO ONE (04:30)
[2019-01-09] MEDS ORDERED: MELO15TA23 PO (04:45)
[2019-01-09] MEDS ORDERED: IBUP400T18 PO (04:47)
[2019-01-09] MEDS ORDERED: RIVA10TA PO (04:51)
[2019-01-09] MEDS ORDERED: LISI1TAB7 PO (04:52)
[2019-01-09] MEDS ORDERED: LORA1TAB47 PO (04:55)
[2019-01-09 06:00] VITALS: BP 103/59
[2019-01-09] MEDS: VANCOMYCIN PER PHARMACY MC PRN (06:24)
[2019-01-09] MEDS ORDERED: HYDROcodone/APAP 5/325MG 1 TAB TABLET PO PRN (07:45)
[2019-01-09] MEDS ORDERED: FLUTICASONE 50MCG/NASAL SPRAY 16GM BOTTLE. NS PRN (08:00)
[2019-01-09] MEDS ORDERED: ALBUTEROL SULFATE 2.5 MG/3 ML NEBU. NEB PRN (08:30)
[2019-01-09] MEDS ORDERED: RIVAROXABAN 10 MG TABLET. PO SCH (09:00)
[2019-01-09] MEDS ORDERED: FAMOTIDINE 20 MG TABLET PO SCH (09:00)
[2019-01-09] MEDS ORDERED: MELOXICAM 15 MG TABLET. PO SCH (09:00)
[2019-01-09] MEDS ORDERED: hydroCHLOROthiazide 25 MG TABLET PO SCH ×2 (09:00)
[2019-01-09] MEDS ORDERED: FUROSEMIDE 20 MG TABLET PO SCH (09:00)
[2019-01-09] MEDS ORDERED: LISINOPRIL 20 MG TABLET PO SCH ×2 (09:00)
--- NOTE | 2019-01-09 09:34 | PDOC2 ---
ANDRE MARSHALL HEALTH PLAN SPECIALIST 01/09/19 0934: CONSULT Date of Admission DATE: 01/09/19 TIME: 09:29 Reason for Consult: CP, palpitations Problem List Problems Medical Problems: (1) Chest pain Status: Acute History of Present Illness Ms Tyler is a 63 year old female with history of MS, asthma, recurrent DVT and recent PE who presented with complaints of chest pain and palpitations. She reports she had sensation of her heart racing and pounding with onset while at rest. She denies chest pain and states she only had the uncomfortable palpitations. She denies any associated symptoms of chest tightness, dyspnea or lightheadedness. she denies any prior episodes like this. She denies exertional symptoms though she admits her functional capacity is very limited and she is mostly chair bound. She denies congestive symptoms though she does report some swelling in her feet on occasion. She does complain of acid reflux with burning up into her throat frequently for which she takes zantac. She does report fever and current UTI. Past Medical History Multiple sclerosis, hypertension, DVT/PE, bronchitis, obesity, multiple urinary tract infections with chronic Chang, ankle fracture, paraplegia, tinea pedis, GERD, depression, anxiety and refuses vaccinations. Family History Noncontributory. Social History no smoking, alcohol or drug use. Current Medications Current Medications Lactated Ringer's 1,000 ml @ 1,000 mls/hr Q1H IV Last administered on at 03:17; Start 01/09/19 at 02:30; Stop 01/09/19 at 03:29; Status DC Clopidogrel Bisulfate (Plavix) 75 mg 1X ONCE PO Last administered on 01/09/19at 03:17; Start 01/09/19 at 02:30; Stop 01/09/19 at 02:31; Status DC Acetaminophen (Tylenol) 1,000 mg 1X ONCE PO Last administered on 01/09/19at 03: 29; Start 01/09/19 at 03:30; Stop 01/09/19 at 03:31; Status DC Trimethoprim/ Sulfamethoxazole (Starter Pack - Bactrim Ds) 1 startpack 1X ONCE PO Last administered on 01/09/19at 03:30; Start 01/09/19 at 03:30; Stop 01/09/19 at 03:31; Status DC Ondansetron HCl (Zofran) 4 mg PRN Q4HRS PRN IV NAUSEA/VOMITING; Start 01/09/19 at 03:45; Stop 01/10/19 at 03:44 Lactated Ringer's 1,000 ml @ 160 mls/hr Q6H15M IV Last administered on at 05:37; Start 01/09/19 at 04:00 Acetaminophen (Tylenol) 1,000 mg QIDPRN PRN PO fever, discomfort; Start at 03:45 Trimethoprim/ Sulfamethoxazole (Bactrim Ds) 1 tab BID PO ; Start 01/09/19 at 09: 00 Vancomycin HCl 1 gm/Sodium Chloride 250 ml @ 250 mls/hr 1X ONCE IV ; Start 01/09/19 at 03:45; Stop 01/09/19 at 04:44; Status UNV Vancomycin HCl (Vanco Per Pharmacy) 1 each PRN DAILY PRN MC SEE COMMENTS Last administered on 01/09/19at 06:24; Start 01/09/19 at 03:45 Clopidogrel Bisulfate (Plavix) 75 mg DAILY PO ; Start 01/09/19 at 09:00 Rivaroxaban (Xarelto) 20 mg DAILYWSUP PO ; Start 01/09/19 at 17:00 Vancomycin HCl 1.5 gm/Sodium Chloride 500 ml @ 250 mls/hr 1X ONCE IV Last administered on 01/09/19at 05:45; Start 01/09/19 at 04:00; Stop 01/09/19 at 05:59; Status DC Lactated Ringer's 1,000 ml @ 1,000 mls/hr 1X ONCE IV ; Start 01/09/19 at 04:00 ; Stop 01/09/19 at 04:59; Status DC Lisinopril (Prinivil) 20 mg DAILY PO ; Start 01/09/19 at 09:00; Stop 01/09/19 at 09:00; Status DC Hydrochlorothiazide (Hydrodiuril) 25 mg DAILY PO ; Start 01/09/19 at 09:00; Status Cancel Potassium Chloride (KCl Oral Soln) 40 meq 1X ONCE PO Last administered on at 05:38; Start 01/09/19 at 04:30; Stop 01/09/19 at 04:31; Status DC Albuterol/ Ipratropium (Duoneb) 3 ml RTQID NEB ; Start 01/09/19 at 08:00 Vancomycin HCl 1 gm/Sodium Chloride 250 ml @ 250 mls/hr Q24H IV ; Start at 06:00 Vancomycin HCl (Vancomycin Trough Level) 1 each 1X ONCE MC ; Start 01/11/19 at 05:30; Stop 01/11/19 at 05:31 Lactobacillus Rhamnosus (Culturelle) 1 cap BID PO ; Start 01/09/19 at 09:00 Albuterol Sulfate (Ventolin) 2.5 mg PRN Q4HRS PRN NEB SHORTNESS OF BREATH; Start 01/09/19 at 08:30 Furosemide (Lasix) 20 mg DAILY PO ; Start 01/09/19 at 09:00 Acetaminophen/ Hydrocodone Bitart (Lortab 5/325) 1 tab PRN BID PRN PO PAIN; Start 01/09/19 at 07:45 Rivaroxaban (Xarelto) 20 mg DAILY PO ; Start 01/09/19 at 09:00; Stop 01/09/19 at 09:00; Status DC Fluticasone Propionate (Flonase) 1 spray DAILY PRN NS .; Start 01/09/19 at 08:00 Lisinopril (Prinivil) 20 mg DAILY PO ; Start 01/09/19 at 09:00 Cetirizine HCl (ZyrTEC) 5 mg BID PO ; Start 01/09/19 at 09:00 Meloxicam (Mobic) 15 mg DAILY PO ; Start 01/09/19 at 09:00 Oxybutynin Chloride (Ditropan) 5 mg [id number] PO ; Start 01/09/19 at 09:00 Famotidine (Pepcid) 20 mg DAILY PO ; Start 01/09/19 at 09:00 Hydrochlorothiazide (Hydrodiuril) 25 mg DAILY PO ; Start 01/09/19 at 09:00 Pseudoephedrine HCl (Sudafed 12-Hour) 120 mg BID PO ; Start 01/09/19 at 09:00 Active Scripts Active Reported Claritin-D 12 Hour Tablet (Loratadine/Pseudoephedrine) 1 Each Tab.er.12h 1 Tab PO BID Lisinopril-Hctz 20-25 Mg Tab (Lisinopril/Hydrochlorothiazide) 1 Each Tablet 1 Tab PO DAILY Xarelto (Rivaroxaban) 10 Mg Tablet 2 Tab PO DAILY Ibuprofen 400 Mg Tablet 1.5 Tab PO TID PRN PRN Meloxicam 15 Mg Tablet 1 Tab PO DAILY Furosemide 20 Mg Tablet 1 Tab PO DAILY Ranitidine Hcl 150 Mg Capsule 1 Cap PO DAILY Hydrocodone-Apap 5-325 (Hydrocodone Bit/Acetaminophen) 1 Each Tablet 1 Tab PO PRN BID PRN Oxybutynin Chloride Er (Oxybutynin Chloride) 10 Mg Tab.er.24 10 Mg PO BID Bladder spasms LAST DOSE GIVEN: DATE: TIME: NEXT DOSE DUE: DATE: TIME: Flonase (Fluticasone Propionate) 16 Gm [place].susp 1 Spr NS DAILY PRN As needed for nasal congestion LAST DOSE GIVEN: DATE: TIME: NEXT DOSE DUE: DATE: TIME: Albuterol Sulfate Hfa Inhaler (Albuterol Sulfate) 8.5 Gm Hfa.aer.ad 2 Puff IH Q4HRS PRN As needed for Shortness of breath LAST DOSE GIVEN: DATE: TIME: NEXT DOSE DUE: DATE: TIME: Allergies: Coded Allergies: penicillin G (Verified Allergy, Severe, Swell up/red., 11/04/18) levofloxacin (Verified Allergy, Intermediate, 09/26/15) aspirin (Verified Adverse Reaction, Intermediate, N/V, 09/26/15) enoxaparin sodium (Verified Adverse Reaction, Intermediate, Mouth swells. , 09/26/15) prochlorperazine edisylate (Verified Adverse Reaction, Intermediate, "I feel high", 09/26/15) prochlorperazine maleate (Verified Adverse Reaction, Intermediate, ) Review of System as per HPI General: Alert, Oriented X3, Cooperative, No acute distress HEENT: Atraumatic, EOMI, Mucous membr. moist/pink Lungs: Clear to auscultation, Other (poor inspratory effort) Heart: Normal S1, Normal S2, Other (no gallops, clicks or rubs) Abdomen: Normal bowel sounds, Soft, No tenderness Extremities: No cyanosis, Other (trace pedal edema) Neuro: Normal speech Psych/Mental Status: Mental status NL, Mood NL VITALS Vital Signs Date Time Temp Pulse Resp B/P (MAP) Pulse Ox O2 Delivery O2 Flow Rate FiO2 01/09/19 06:00 98.6 86 16 103/59 (74) 98 Room Air 01/09/19 04:20 96.0 Labs Laboratory Tests Test 01/09/19 02:47 01/09/19 07:07 White Blood Count 15.3 x10^3/uL (4.0-11.0) Red Blood Count 4.67 x10^6/uL (3.50-5.40) Hemoglobin 13.7 g/dL (12.0-15.5) Hematocrit 40.6 % (36.0-47.0) Mean Corpuscular Volume 87 fL (79-100) Mean Corpuscular Hemoglobin 29 pg (25-35) Mean Corpuscular Hemoglobin Concent 34 g/dL (31-37) Red Cell Distribution Width 13.5 % (11.5-14.5) Platelet Count 329 x10^3/uL (140-400) Neutrophils (%) (Auto) 85 % (31-73) Lymphocytes (%) (Auto) 8 % (24-48) Monocytes (%) (Auto) 7 % (0-9) Eosinophils (%) (Auto) 0 % (0-3) Basophils (%) (Auto) 0 % (0-3) Neutrophils # (Auto) 13.1 x10^3uL (1.8-7.7) Lymphocytes # (Auto) 1.2 x10^3/uL (1.0-4.8) Monocytes # (Auto) 1.0 x10^3/uL (0.0-1.1) Eosinophils # (Auto) 0.1 x10^3/uL (0.0-0.7) Basophils # (Auto) 0.1 x10^3/uL (0.0-0.2) Segmented Neutrophils % 84 % (35-66) Band Neutrophils % 3 % (0-9) Lymphocytes % 6 % (24-48) Monocytes % 5 % (0-10) Eosinophils % 2 % (0-5) Platelet Estimate Adequate (ADEQUATE) Erythrocyte Sedimentation Rate 51 (0-25) Prothrombin Time 12.0 SEC (9.4-11.4) Prothromb Time International Ratio 1.2 (0.9-1.1) Activated Partial Thromboplast Time 32 SEC (23-33) D-Dimer (Didi) 0.54 mg/L (0.00-0.50) Urine Collection Type Unknown Urine Color Yellow Urine Clarity Hazy Urine pH 5.0 Urine Specific [place] 1.010 Urine Protein Neg (NEG-TRACE) Urine Glucose (UA) Neg mg/dL (NEG) Urine Ketones (Stick) Neg mg/dL (NEG) Urine Blood Large (NEG) Urine Nitrite Pos (NEG) Urine Bilirubin Neg (NEG) Urine Urobilinogen Dipstick 0.2 mg/dL (0.2 mg/dL) Urine Leukocyte Esterase Small (NEG) Urine RBC 6-10 /HPF (0-2) Urine WBC >40 /HPF (0-4) Urine Squamous Epithelial Cells Mod /LPF Urine Bacteria Many /HPF (0-FEW) Sodium Level 140 mmol/L (136-145) Potassium Level 3.2 mmol/L (3.5-5.1) Chloride Level 100 mmol/L (98-107) Carbon Dioxide Level 28 mmol/L (21-32) Anion Gap 12 (6-14) Blood Urea Nitrogen 38 mg/dL (7-20) Creatinine 1.4 mg/dL (0.6-1.0) Estimated GFR (Cockcroft-Gault) 38.1 Glucose Level 161 mg/dL (70-99) Lactic Acid Level 2.8 mmol/L (0.4-2.0) 2.8 mmol/L (0.4-2.0) Calcium Level 9.8 mg/dL (8.5-10.1) Magnesium Level 2.4 mg/dL (1.8-2.4) Total Bilirubin 0.4 mg/dL (0.2-1.0) Direct Bilirubin 0.1 mg/dL (0.0-0.2) Aspartate Amino Transf (AST/SGOT) 14 U/L (15-37) Alanine Aminotransferase (ALT/SGPT) 22 U/L (14-59) Alkaline Phosphatase 78 U/L (46-116) Creatine Kinase 105 U/L (26-192) Troponin I Quantitative < 0.017 ng/mL (0-0.055) < 0.017 ng/mL (0-0.055) PA-Cup-Z-Type Natriuretic Peptide 211 pg/mL (0-124) Total Protein 8.3 g/dL (6.4-8.2) Albumin 4.0 g/dL (3.4-5.0) Lipase 255 U/L (73-393) Urine Opiates Screen Neg (NEG) Urine Methadone Screen Neg (NEG) Urine Barbiturates Neg (NEG) Urine Phencyclidine Screen Neg (NEG) Urine Amphetamine/Methamphetamine Neg (NEG) Urine Benzodiazepines Screen Neg (NEG) Urine Cocaine Screen Neg (NEG) Urine Cannabinoids Screen Neg (NEG) Urine Ethyl Alcohol Neg (NEG) Images CXR - No evidence of an acute cardiopulmonary process. EKG - pending Assessment/Plan 1. chest pain, atypical - CE neg x 2, check echo, lipids, add metoprolol. No asa as on Plavix and Xarelto. Consider OP MPI 2. PE - on Xarelto, Per PCP 3. Palpitations - echo and OP MCT. No arrhythmias by tele 4. Hypertension - controlled on current medical therapy 5. UTI - per PCP 6. anxiety - Per PCP ARNULFO STARKEY MD 01/09/19 7825: CONSULT Assessment/Plan Patient seen and examined. Agree with [employer] INSPECTOR HELPER's assessment and plan. CP with atypical features. [place] ruled out. Tele did not show any significant arrhythmias. 2D echo showed normal LVF without any WMA Plan ischemic evaluation with MPI and event monitor as outpatient. Thank you for your consultation ANDRE MARSHALL APRN Jan 09, 2019 09:34 ARNULFO STARKEY MD Jan 09, 2019 18:55
[2019-01-09] MEDS: OXYBUTYNIN CHLORIDE 5 MG TABLET PO SCH ×3 (10:00→21:20)
[2019-01-09] MEDS: PSEUDOEPHEDRINE ER 120 MG TABLET.ER. PO SCH ×2 (10:00→21:17)
[2019-01-09] MEDS: CLOPIDOGREL BISULFATE 75 MG TABLET PO SCH (10:00)
[2019-01-09] MEDS: CETIRIZINE HCL 10 MG TABLET PO SCH ×2 (10:00→21:24)
[2019-01-09] MEDS: SMZ/TMP 800/160MG TABLET. PO SCH ×2 (10:01→21:18)
[2019-01-09] MEDS: LACTOBACILLUS RHAMNOSUS GG 1 CAPSULE. PO SCH ×2 (10:01→21:22)
[2019-01-09] MEDS: METOPROLOL TART IMMED RELEASE 25 MG TABLET PO SCH ×2 (10:15→21:00)
[2019-01-09 10:38] VITALS: BP 110/73
[2019-01-09] MEDS: IPRATRPIUM/ALBUTEROL 0.5/2.5MG 3 ML NEBU. NEB SCH ×3 (13:50→20:32)
--- NOTE | 2019-01-09 14:02 | CARD ---
MR#: [id number] Date of Study: 01/09/2019 Ordering Physician: ANDRE MARSHALL, Referring Physician: NATALIA QUIJANO, Tech: Jazmin Zheng APPROVED REPORT EXAM: Two-dimensional and M-mode echocardiogram with Doppler and color Doppler. Other Information Quality : AverageHR: 88bpm Technically limited study due to body habitus. INDICATION Palpitations Chest Pain RISK FACTORS Hypertension 2D DIMENSIONS RVDd2.3 (2.9-3.5cm)Left Atrium(2D)2.5 (1.6-4.0cm) IVSd0.9 (0.7-1.1cm)Aortic Root(2D)2.7 (2.0-3.7cm) LVDd4.1 (3.9-5.9cm)LVOT Diameter1.9 (1.8-2.4cm) PWd0.9 (0.7-1.1cm)LVDs2.1 (2.5-4.0cm) FS (%) 47.6 %SV59.1 ml LVEF(%)79.5 (>50%) Aortic Valve AoV Peak [place].134.6cm/sAoV VTI26.3cm AO Peak GR.7.2mmHgLVOT Peak [place].110.9cm/s LVOT VTI 22.87cmAO Mean GR.5mmHg HÉCTOR (VMAX)2.75fw3ITD (VTI)2.35cm2 Mitral Valve MV E Igbipxzh61.9cm/sMV DECEL [id number] MV A Zezwegdv27.7cm/sE/A Ratio0.8 Pulmonary Valve PV Peak Yoqaaywl67.9cm/sPV Peak Grad.4mmHg LEFT VENTRICLE The left ventricle is normal size. There is normal left ventricular wall thickness. The left ventricu lar systolic function is normal and the ejection fraction is within normal range. The Ejection Fracti on is >55%. There is normal LV segmental wall motion. The left ventricular diastolic function and tommy ling is normal for age. RIGHT VENTRICLE The right ventricle is normal size. There is normal right ventricular wall thickness. The right ventr icular systolic function is normal. ATRIA The left atrium size is normal. The right atrium size is normal. The interatrial septum is intact wit h no evidence for an atrial septal defect or patent foramen ovale as noted on 2-D or Doppler imaging. AORTIC VALVE The aortic valve is normal in structure and function. Doppler and Color Flow revealed no significant aortic regurgitation. There is no significant aortic valvular stenosis. MITRAL VALVE The mitral valve is normal in structure and function. There is no evidence of mitral valve prolapse. There is no mitral valve stenosis. Doppler and Color Flow revealed no mitral valve regurgitation note d. TRICUSPID VALVE The tricuspid valve is normal in structure and function. Doppler and Color Flow revealed no tricuspid valve regurgitation noted. There is no tricuspid valve stenosis. PULMONIC VALVE The pulmonic valve is not well visualized. Doppler and Color Flow revealed no pulmonic valvular regur gitation. GREAT VESSELS The aortic root is normal in size. The IVC is normal in size and collapses >50% with inspiration. PERICARDIAL EFFUSION There is no evidence of significant pericardial effusion. Critical Notification Critical Value: No <Conclusion> The left ventricular systolic function is normal and the ejection fraction is within normal range. Th e Ejection Fraction is >55%. There is normal LV segmental wall motion. Signed by : Ted Raymond, Electronically Approved : 01/09/2019 14:02:05
[2019-01-09 14:28] VITALS: BP 99/68
[2019-01-09] MEDS: ACETAMINOPHEN 500 MG TABLET PO PRN ×2 (14:41→21:25)
[2019-01-09] MEDS: PANTOPRAZOLE 40 MG TABLET. PO SCH (14:41)
[2019-01-09] MEDS: POTASSIUM CL 40MEQ IN 0.9%NACL 1,000 ML IV SCH (14:42)
--- NOTE | 2019-01-09 14:50 | HP ---
ADMIT DATE: 01/09/2019 HISTORY OF PRESENT ILLNESS: The patient is a 63-year-old female patient who came to the Emergency Room complaining of palpitation. She also complained of some central chest pain and some pain in her left side. She apparently had pulmonary embolus about 2 months ago for which she is started on Xarelto. She also complained she might have fever and she is known to have recurrent urinary tract infection. The patient is known to have multiple sclerosis diagnosed about approximately 12 years ago and has had an indwelling Chang catheter that is changed once a month and she has frequent urinary tract infection. She was evaluated in the Emergency Room and her EKG showed that she was in sinus tachycardia without any ST segment elevation or depression. Her first set of cardiac enzymes showed troponin to be less than 0.017. She has also lactic acidosis. White cell count was high at 15,300 and her urinalysis showed the many bacteria and was more than 40 wbc's and positive for nitrite. The patient was admitted for urinary tract infection, chest pain and palpitation. She has a history of deep venous thrombosis and pulmonary embolism for which she is on Xarelto. She was found to have elevated D-dimer; however, she is already on Xarelto. Her chest x-ray showed that her cardiomediastinal silhouette is normal. The pulmonary vasculature is normal and pleural margins are clear. The patient was admitted to do 2 more sets of cardiac enzymes, consult the cardiology team and to treat her UTI. On questioning her further, the patient said also she has back pain for which she takes ibuprofen 600 mg twice a day and she is also on Meloxicam 15 mg every day. PAST MEDICAL HISTORY: Significant for multiple sclerosis with functional paraplegia and neurogenic bladder requiring indwelling Chang catheter. PAST SURGICAL HISTORY: Significant for corrective surgery when she was a child. She has been wheelchair bound for the last 12 years. ALLERGIES: SHE IS ALLERGIC TO ASPIRIN, LOVENOX, LEVOFLOXACIN, PENICILLIN, CHLORPROMAZINE MALEATE WELL ____. MEDICATIONS: She is currently on following medications: She is on loratadine pseudoephedrine 1 tablet twice a day, albuterol sulfate 2 puffs every 4 hours, rivaroxaban 20 mg daily. She is on lisinopril/hydrochlorothiazide 20/25 one tablet once a day, ibuprofen 600 mg 3 times a day, Meloxicam 15 mg daily, hydrocodone/APAP 5/325 one tablet twice a day, furosemide 20 mg once a day, Flonase 1 spray to each nostril twice a day. She is on ranitidine 150 mg once a day, oxybutynin chloride 10 mg twice a day. FAMILY HISTORY: She is adopted and has no sisters or brothers. She does not know her biological parents. SOCIAL HISTORY: She is single, never , has no children. She does not smoke, does not drink alcohol or recreational drugs. She lives on her own with assistance. She has a caregiver that comes for 2 hours in the morning and 2 hours in the evening. She has a power chair. REVIEW OF SYSTEMS: The patient denied any blurring of vision, cataract, glaucoma or macular degeneration. Denied any earache, tinnitus or sensorineural deafness. Denied any nosebleeds, stuffy nose or postnasal drip. Denied any sore throat, sore tongue, toothache, hoarseness of voice or difficulty swallowing. Denied any nausea, vomiting, diarrhea or constipation. Denied any hematemesis, melena or hematochezia. Denied any dysuria, frequency or hematuria. Denied any chest pain. Did complain of palpitation. Denied any orthopnea or paroxysmal nocturnal dyspnea. Denied any cough, phlegm or hemoptysis. Denied any chills, rigors, or fever. PHYSICAL EXAMINATION: GENERAL: On arrival to the hospital, the patient was somewhat pale, but not jaundiced or cyanosis. No lymphadenopathy, no thyromegaly. No jugular venous distention. No limb edema. VITAL SIGNS: Her heart rate was 109, blood pressure was 109/56, temperature was 100.9, respiratory rate was 20, and oxygen saturation was 97% on room air. HEAD, EYES, EARS, NOSE AND THROAT: Showed normocephalic, atraumatic. NECK: Supple. HEART: Showed normal first and second heart sounds with no gallop, rub or murmur. CHEST: Clear to auscultation. No crepitation or rhonchi. ABDOMEN: Distended, soft, nontender. NEUROLOGIC: She was awake, alert, responding appropriately. All cranial nerves intact. She moves upper extremities without difficulty. She has functional paraplegia with neurogenic bladder. She has an indwelling Chang catheter. LABORATORY DATA: Her lab work this morning showed a white cell count of 15,300, hemoglobin 13.7, hematocrit 40.6, MCV 87 and platelet count of 329,000 with normal manual differential. Her chemistry showed a serum sodium of 140, potassium 3.2, chloride 100, bicarbonate 28, anion gap of 12, BUN 38, creatinine 1.4, estimated GFR was 58 mL per minute. Her glucose 161, calcium was 9.8, magnesium was 2.4. Total bilirubin, AST, ALT, alkaline phosphatase were normal. Her beta natriuretic peptide was 211, total protein was 8.3, albumin was 4. Lipase was 255. Her TSH was normal at 1.272 and her first troponin was less than 0.017. Her prothrombin time was 12, INR of 1.2, aPTT was 32 and D-dimer was 0.54. Urinalysis showed the urine was yellow, hazy with a pH of 5, specific gravity of 1.010. The urine was negative for protein, glucose, ketones. There was large amount of blood, positive for nitrite, negative for bilirubin, has small amount of leukocyte esterase and more than 40 wbc's and too many bacteria. Her toxic screen was basically negative and her chest x-ray showed that the patient has cardiomediastinal silhouette normal. The pulmonary vasculature is normal. The lungs and pleural spaces are normal. IMPRESSION AND PLAN: In summary, this is a 63-year-old female patient who was admitted with palpitation. She was found to be febrile with marked leukocytosis and urinary sediment consistent with urinary tract infection. She has also acute kidney injury as her BUN is 38, creatinine 1.4. She has also hypokalemia and lactic acidosis. She is currently on IV antibiotic in the form of vancomycin as well as trimethoprim sulfamethoxazole. Continue with IV fluid. She has palpitation, so far she has 2 sets of cardiac enzymes that were negative. I will hold her hydrochlorothiazide as well as the Meloxicam and ibuprofen and furosemide. Continue with IV fluid and monitor her labs closely. NATALIA QUIJANO MD DR: OTONIEL/josesito JOB#: [id number] / [id number]
--- NOTE | 2019-01-09 15:07 | RAD ---
CT of the lumbar spine without contrast, 01/09/2019: HISTORY: Back pain, multiple sclerosis Noncontrast scans were obtained with multiplanar reconstructions produced. No fracture or subluxation is evident. No destructive bony lesion is seen. There are only minimal degenerative changes involving scattered facet joints. There is a vacuum disc phenomena at L5-S1. The posterior disc margin is not clearly seen, however, there appears to be only mild posterior disc bulging. The other intervertebral disc spaces are well-maintained. There is only minimal posterior annular bulging at L3-4 and L4-5. No disc herniation or significant central spinal stenosis is evident. Incidental note is made of multiple gallstones in the gallbladder. There is moderate left renal cortical scarring. A nonobstructing 4 mm calculus is noted in the lower pole of the left kidney. IMPRESSION: 1. Mild scattered degenerative changes in the lumbar spine. 2. No acute lumbar spine abnormality is detected. 3. Cholelithiasis. 4. Nonobstructing left intrarenal calculus. PQRS Compliance Statement: One or more of the following individualized dose reduction techniques were utilized for this examination: 1. Automated exposure control 2. Adjustment of the mA and/or kV according to patient size 3. Use of iterative reconstruction technique Electronically signed by: Felipe Marx MD (01/09/2019 3:04 PM) [facility]
[2019-01-09] MEDS ORDERED: IV NORMAL SALINE 1,000ML 1,000 ML IV ONE (19:15)
[2019-01-09 19:37] VITALS: BP 94/59
[2019-01-09] MEDS: RIVAROXABAN 10 MG TABLET. PO SCH (21:19)
[2019-01-09 22:37] VITALS: BP 106/65
[2019-01-10] MEDS: POTASSIUM CL 40MEQ IN 0.9%NACL 1,000 ML IV SCH ×2 (01:24→17:18)
[2019-01-10 04:04] VITALS: BP 110/72
[2019-01-10 04:59] VITALS: BP 106/66
[2019-01-10] MEDS: IPRATRPIUM/ALBUTEROL 0.5/2.5MG 3 ML NEBU. NEB SCH ×4 (05:01→20:37)
[2019-01-10] MEDS ORDERED: MECLIZINE 12.5 MG TABLET. PO PRN (05:15)
[2019-01-10] MEDS: VANCOMYCIN 1 GM in IV NORMAL SALINE 250ML 250 ML IV SCH (05:25)
--- NOTE | 2019-01-10 06:39 | EKG ---
[address] [address] Test Date: 2019-01-09 Test Time: 02:28:52 Pat Name: EVERETT MONTALVO Department: Room: 107 A Gender: F Distance Learning Administrator: VALENTE : [id number] Requested By: RAFFI CLARKE Order Number: [id number] Reading MD: Ted Raymond MD Measurements Intervals [place] Rate: 106 P: -56 [place]: 140 QRS: -10 QRSD: 70 T: 24 QT: 382 QTc: 509 Interpretive Statements SINUS TACHYCARDIA CONSIDER INFERIOR INFARCT NON-SPECIFIC ST/T CHANGES Electronically Signed On 01-10-2019 8:34:45 CDT by Ted Raymond MD
--- NOTE | 2019-01-10 06:42 | EKG ---
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
[2019-01-10] MEDS: ACETAMINOPHEN 500 MG TABLET PO PRN (07:18)
[2019-01-10] MEDS: PANTOPRAZOLE 40 MG TABLET. PO SCH (07:18)
[2019-01-10] MEDS: LACTOBACILLUS RHAMNOSUS GG 1 CAPSULE. PO SCH ×2 (08:26→21:27)
[2019-01-10] MEDS: CETIRIZINE HCL 10 MG TABLET PO SCH ×2 (08:26→21:27)
[2019-01-10] MEDS: OXYBUTYNIN CHLORIDE 5 MG TABLET PO SCH ×3 (08:26→21:27)
[2019-01-10] MEDS: PSEUDOEPHEDRINE ER 120 MG TABLET.ER. PO SCH ×2 (08:26→21:27)
[2019-01-10 08:27] LABS: ALBUMIN 2.9 g/dL (3.4-5.0); ALBUMIN/GLOBULIN RATIO 0.8 (1.0-1.7); CALCIUM 8.2 mg/dL (8.5-10.1); CREATININE 1.1 mg/dL (0.6-1.0); GFR 50.3; POTASSIUM 4.3 mmol/L (3.5-5.1); TOTAL BILIRUBIN 0.2 mg/dL (0.2-1.0); TOTAL PROTEIN 6.6 g/dL (6.4-8.2)
[2019-01-10] MEDS: SMZ/TMP 800/160MG TABLET. PO SCH ×2 (08:27→21:28)
[2019-01-10] MEDS: CLOPIDOGREL BISULFATE 75 MG TABLET PO SCH (08:27)
--- NOTE | 2019-01-10 08:48 | PDOC ---
PROGRESS NOTES Diagnosis Problem Problems Medical Problems: (1) Chest pain Status: Acute Assessment Problems Medical Problems: (1) Chest pain Status: Acute 1. chest pain, atypical - angina free. echo with normal LV function and wall motion. Minimal elevation of trop likely secondary to urosepsis. Plan for outpatient MPI. 2. PE - on Xarelto, Per PCP 3. Palpitations - No sig arrhythmias. plan for outpatient MCT. 4. Hypertension - well controlled on current medical therapy 5. urosepsis - per PCP 6. anxiety - Per PCP Subjective no chest pain, no dyspnea. anxious about lower blood pressure last night. c/p seeing spots and swirling colors while looking at the TV for a couple minutes, no episodes since last night. Objective echo - The left ventricular systolic function is normal and the ejection fraction is within normal range. The Ejection Fraction is >55%. There is normal LV segmental wall motion. Vital Signs Date Time Temp Pulse Resp B/P (MAP) Pulse Ox O2 Delivery O2 Flow Rate FiO2 01/10/19 07:38 Room Air 01/10/19 05:01 95 01/10/19 04:59 87 106/66 (79) 01/10/19 04:04 98.0 18 01/09/19 04:20 96.0 Intake and Output 01/10/19 06:59 Intake Total 3530 ml Output Total 900 ml Balance 2630 ml Intake Oral 830 ml IV Total 2700 ml Output Urine Total 900 ml Physical Exam gen: awake, alert, anxious, No acute distress CV: reg rate and rhythm, no gallops, clicks or rubs, no sig murmurs Lungs: basilar crackles improve with cough, otherwise clear abd: + bowel sounds ext : trace pedal edema Review of Relevant I have reviewed the following items [place] (where applicable) has been applied. Labs Laboratory Tests Test 01/09/19 02:47 01/09/19 07:07 01/09/19 07:50 01/10/19 07:50 White Blood Count 15.3 x10^3/uL (4.0-11.0) Red Blood Count 4.67 x10^6/uL (3.50-5.40) Hemoglobin 13.7 g/dL (12.0-15.5) Hematocrit 40.6 % (36.0-47.0) Mean Corpuscular Volume 87 fL (79-100) Mean Corpuscular Hemoglobin 29 pg (25-35) Mean Corpuscular Hemoglobin Concent 34 g/dL (31-37) Red Cell Distribution Width 13.5 % (11.5-14.5) Platelet Count 329 x10^3/uL (140-400) Neutrophils (%) (Auto) 85 % (31-73) Lymphocytes (%) (Auto) 8 % (24-48) Monocytes (%) (Auto) 7 % (0-9) Eosinophils (%) (Auto) 0 % (0-3) Basophils (%) (Auto) 0 % (0-3) Neutrophils # (Auto) 13.1 x10^3uL (1.8-7.7) Lymphocytes # (Auto) 1.2 x10^3/uL (1.0-4.8) Monocytes # (Auto) 1.0 x10^3/uL (0.0-1.1) Eosinophils # (Auto) 0.1 x10^3/uL (0.0-0.7) Basophils # (Auto) 0.1 x10^3/uL (0.0-0.2) Segmented Neutrophils % 84 % (35-66) Band Neutrophils % 3 % (0-9) Lymphocytes % 6 % (24-48) Monocytes % 5 % (0-10) Eosinophils % 2 % (0-5) Platelet Estimate Adequate (ADEQUATE) Erythrocyte Sedimentation Rate 51 (0-25) Prothrombin Time 12.0 SEC (9.4-11.4) Prothromb Time International Ratio 1.2 (0.9-1.1) Activated Partial Thromboplast Time 32 SEC (23-33) D-Dimer (Didi) 0.54 mg/L (0.00-0.50) Urine Collection Type Unknown Urine Color Yellow Urine Clarity Hazy Urine pH 5.0 Urine Specific [place] 1.010 Urine Protein Neg (NEG-TRACE) Urine Glucose (UA) Neg mg/dL (NEG) Urine Ketones (Stick) Neg mg/dL (NEG) Urine Blood Large (NEG) Urine Nitrite Pos (NEG) Urine Bilirubin Neg (NEG) Urine Urobilinogen Dipstick 0.2 mg/dL (0.2 mg/dL) Urine Leukocyte Esterase Small (NEG) Urine RBC 6-10 /HPF (0-2) Urine WBC >40 /HPF (0-4) Urine Squamous Epithelial Cells Mod /LPF Urine Bacteria Many /HPF (0-FEW) Sodium Level 140 mmol/L (136-145) 140 mmol/L (136-145) Potassium Level 3.2 mmol/L (3.5-5.1) 4.3 mmol/L (3.5-5.1) Chloride Level 100 mmol/L (98-107) 108 mmol/L (98-107) Carbon Dioxide Level 28 mmol/L (21-32) 19 mmol/L (21-32) Anion Gap 12 (6-14) 13 (6-14) Blood Urea Nitrogen 38 mg/dL (7-20) 18 mg/dL (7-20) Creatinine 1.4 mg/dL (0.6-1.0) 1.1 mg/dL (0.6-1.0) Estimated GFR (Cockcroft-Gault) 38.1 50.3 Glucose Level 161 mg/dL (70-99) 115 mg/dL (70-99) Lactic Acid Level 2.8 mmol/L (0.4-2.0) 2.8 mmol/L (0.4-2.0) Calcium Level 9.8 mg/dL (8.5-10.1) 8.2 mg/dL (8.5-10.1) Magnesium Level 2.4 mg/dL (1.8-2.4) Total Bilirubin 0.4 mg/dL (0.2-1.0) 0.2 mg/dL (0.2-1.0) Direct Bilirubin 0.1 mg/dL (0.0-0.2) Aspartate Amino Transf (AST/SGOT) 14 U/L (15-37) 11 U/L (15-37) Alanine Aminotransferase (ALT/SGPT) 22 U/L (14-59) 13 U/L (14-59) Alkaline Phosphatase 78 U/L (46-116) 61 U/L (46-116) Creatine Kinase 105 U/L (26-192) Troponin I Quantitative < 0.017 ng/mL (0-0.055) < 0.017 ng/mL (0-0.055) 0.080 ng/mL (0-0.055) HR-Vfa-H-Type Natriuretic Peptide 211 pg/mL (0-124) Total Protein 8.3 g/dL (6.4-8.2) 6.6 g/dL (6.4-8.2) Albumin 4.0 g/dL (3.4-5.0) 2.9 g/dL (3.4-5.0) Lipase 255 U/L (73-393) Thyroid Stimulating Hormone (TSH) 1.272 uIU/mL (0.358-3.740) Urine Opiates Screen Neg (NEG) Urine Methadone Screen Neg (NEG) Urine Barbiturates Neg (NEG) Urine Phencyclidine Screen Neg (NEG) Urine Amphetamine/Methamphetamine Neg (NEG) Urine Benzodiazepines Screen Neg (NEG) Urine Cocaine Screen Neg (NEG) Urine Cannabinoids Screen Neg (NEG) Urine Ethyl Alcohol Neg (NEG) Triglycerides Level 148 mg/dL (0-150) Cholesterol Level 191 mg/dL (0-200) LDL Cholesterol, Calculated 117 mg/dL (0-100) VLDL Cholesterol, Calculated 29 mg/dL (0-40) Non-HDL Cholesterol Calculated 146 mg/dL (0-129) HDL Cholesterol 45 mg/dL (40-60) Cholesterol/HDL Ratio 4.0 BUN/Creatinine Ratio 16 (6-20) Albumin/Globulin Ratio 0.8 (1.0-1.7) Microbiology 01/09/19 Blood Culture - Preliminary, Resulted NO GROWTH AFTER 1 DAY... Medications Current Medications Lactated Ringer's 1,000 ml @ 1,000 mls/hr Q1H IV Last administered on at 03:17; Start 01/09/19 at 02:30; Stop 01/09/19 at 03:29; Status DC Clopidogrel Bisulfate (Plavix) 75 mg 1X ONCE PO Last administered on 01/09/19at 03:17; Start 01/09/19 at 02:30; Stop 01/09/19 at 02:31; Status DC Acetaminophen (Tylenol) 1,000 mg 1X ONCE PO Last administered on 01/09/19at 03: 29; Start 01/09/19 at 03:30; Stop 01/09/19 at 03:31; Status DC Trimethoprim/ Sulfamethoxazole (Starter Pack - Bactrim Ds) 1 startpack 1X ONCE PO Last administered on 01/09/19at 03:30; Start 01/09/19 at 03:30; Stop 01/09/19 at 03:31; Status DC Ondansetron HCl (Zofran) 4 mg PRN Q4HRS PRN IV NAUSEA/VOMITING; Start 01/09/19 at 03:45; Stop 01/10/19 at 03:44; Status DC Lactated Ringer's 1,000 ml @ 160 mls/hr Q6H15M IV Last administered on at 05:37; Start 01/09/19 at 04:00; Stop 01/09/19 at 13:52; Status DC Acetaminophen (Tylenol) 1,000 mg QIDPRN PRN PO fever, discomfort Last administered on 01/10/19at 07:18; Start 01/09/19 at 03:45 Trimethoprim/ Sulfamethoxazole (Bactrim Ds) 1 tab BID PO Last administered on at 08:27; Start 01/09/19 at 09:00 Vancomycin HCl 1 gm/Sodium Chloride 250 ml @ 250 mls/hr 1X ONCE IV ; Start 01/09/19 at 03:45; Stop 01/09/19 at 04:44; Status UNV Vancomycin HCl (Vanco Per Pharmacy) 1 each PRN DAILY PRN MC SEE COMMENTS Last administered on 01/09/19at 06:24; Start 01/09/19 at 03:45 Clopidogrel Bisulfate (Plavix) 75 mg DAILY PO Last administered on 01/10/19at 08: 27; Start 01/09/19 at 09:00 Rivaroxaban (Xarelto) 20 mg DAILYWSUP PO Last administered on 01/09/19at 21:19; Start 01/09/19 at 17:00 Vancomycin HCl 1.5 gm/Sodium Chloride 500 ml @ 250 mls/hr 1X ONCE IV Last administered on 01/09/19at 05:45; Start 01/09/19 at 04:00; Stop 01/09/19 at 05:59; Status DC Lactated Ringer's 1,000 ml @ 1,000 mls/hr 1X ONCE IV ; Start 01/09/19 at 04:00 ; Stop 01/09/19 at 04:59; Status DC Lisinopril (Prinivil) 20 mg DAILY PO ; Start 01/09/19 at 09:00; Stop 01/09/19 at 09:00; Status DC Hydrochlorothiazide (Hydrodiuril) 25 mg DAILY PO ; Start 01/09/19 at 09:00; Status Cancel Potassium Chloride (KCl Oral Soln) 40 meq 1X ONCE PO Last administered on at 05:38; Start 01/09/19 at 04:30; Stop 01/09/19 at 04:31; Status DC Albuterol/ Ipratropium (Duoneb) 3 ml RTQID NEB Last administered on 01/10/19at 05 :01; Start 01/09/19 at 08:00 Vancomycin HCl 1 gm/Sodium Chloride 250 ml @ 250 mls/hr Q24H IV Last administered on 01/10/19at 05:25; Start 01/10/19 at 06:00 Vancomycin HCl (Vancomycin Trough Level) 1 each 1X ONCE MC ; Start 01/11/19 at 05:30; Stop 01/11/19 at 05:31 Lactobacillus Rhamnosus (Culturelle) 1 cap BID PO Last administered on at 08:26; Start 01/09/19 at 09:00 Albuterol Sulfate (Ventolin) 2.5 mg PRN Q4HRS PRN NEB SHORTNESS OF BREATH; Start 01/09/19 at 08:30 Furosemide (Lasix) 20 mg DAILY PO Last administered on 01/09/19at 09:55; Start at 09:00; Stop 01/09/19 at 13:51; Status DC Acetaminophen/ Hydrocodone Bitart (Lortab 5/325) 1 tab PRN BID PRN PO PAIN; Start 01/09/19 at 07:45 Rivaroxaban (Xarelto) 20 mg DAILY PO ; Start 01/09/19 at 09:00; Stop 01/09/19 at 09:00; Status DC Fluticasone Propionate (Flonase) 1 spray DAILY PRN NS .; Start 01/09/19 at 08:00 Lisinopril (Prinivil) 20 mg DAILY PO Last administered on 01/09/19at 09:59; Start 01/09/19 at 09:00; Stop 01/09/19 at 13:51; Status DC Cetirizine HCl (ZyrTEC) 5 mg BID PO Last administered on 01/10/19at 08:26; Start 01/09/19 at 09:00 Meloxicam (Mobic) 15 mg DAILY PO Last administered on 01/09/19 10:01; Start 01/09/19 at 09:00; Stop 01/09/19 at 13:51; Status DC Oxybutynin Chloride (Ditropan) 5 mg [id number] PO Last administered on 01/10/19 08: 26; Start 01/09/19 at 09:00 Famotidine (Pepcid) 20 mg DAILY PO Last administered on 01/09/19 10:01; Start 01/09/19 at 09:00; Stop 01/09/19 at 13:51; Status DC Hydrochlorothiazide (Hydrodiuril) 25 mg DAILY PO Last administered on 01/09/19 09:55; Start 01/09/19 at 09:00; Stop 01/09/19 at 13:51; Status DC Pseudoephedrine HCl (Sudafed 12-Hour) 120 mg BID PO Last administered on 08:26; Start 01/09/19 at 09:00 Metoprolol Tartrate (Lopressor) 12.5 mg BID PO Last administered on 01/09/19 10 :15; Start 01/09/19 at 09:30 Pantoprazole Sodium (Protonix) 40 mg DAILYAC PO Last administered on 01/10/19 07:18; Start 01/09/19 at 11:00 Potassium Chloride/Sodium Chloride 1,000 ml @ 75 mls/hr [id number] IV Last administered on 01/10/19 01:24; Start 01/09/19 at 14:00 Sodium Chloride 1,000 ml @ 1,000 mls/hr 1X ONCE IV Last administered on at 19:10; Start 01/09/19 at 19:15; Stop 01/09/19 at 20:15; Status DC Meclizine HCl (Antivert) 12.5 mg PRN Q6HRS PRN PO DIZZINESS Last administered on 01/10/19 05:26; Start 01/10/19 at 05:15 Active Scripts Active Reported Claritin-D 12 Hour Tablet (Loratadine/Pseudoephedrine) 1 Each Tab.er.12h 1 Tab PO BID Lisinopril-Hctz 20-25 Mg Tab (Lisinopril/Hydrochlorothiazide) 1 Each Tablet 1 Tab PO DAILY Xarelto (Rivaroxaban) 10 Mg Tablet 2 Tab PO DAILY Ibuprofen 400 Mg Tablet 1.5 Tab PO TID PRN PRN Meloxicam 15 Mg Tablet 1 Tab PO DAILY Furosemide 20 Mg Tablet 1 Tab PO DAILY Ranitidine Hcl 150 Mg Capsule 1 Cap PO DAILY Hydrocodone-Apap 5-325 (Hydrocodone Bit/Acetaminophen) 1 Each Tablet 1 Tab PO PRN BID PRN Oxybutynin Chloride Er (Oxybutynin Chloride) 10 Mg Tab.er.24 10 Mg PO BID Bladder spasms LAST DOSE GIVEN: DATE: TIME: NEXT DOSE DUE: DATE: TIME: Flonase (Fluticasone Propionate) 16 Gm [place].susp 1 Spr NS DAILY PRN As needed for nasal congestion LAST DOSE GIVEN: DATE: TIME: NEXT DOSE DUE: DATE: TIME: Albuterol Sulfate Hfa Inhaler (Albuterol Sulfate) 8.5 Gm Hfa.aer.ad 2 Puff IH Q4HRS PRN As needed for Shortness of breath LAST DOSE GIVEN: DATE: TIME: NEXT DOSE DUE: DATE: TIME: Vitals/I & O Vital Sign - Last 24 Hours 01/09/19 01/09/19 01/09/19 01/09/19 09:59 10:15 10:38 13:52 Temp 97.8 Pulse 78 78 91 Resp 16 B/P (MAP) 122/83 122/83 110/73 (85) Pulse Ox 99 98 O2 Delivery Room Air Room Air 01/09/19 01/09/19 01/09/19 01/09/19 14:28 17:42 19:37 20:00 Temp 100.9 98.6 Pulse 99 84 Resp 18 20 B/P (MAP) 99/68 (78) 94/59 (71) Pulse Ox 94 98 96 O2 Delivery Room Air Room Air Room Air Room Air 01/09/19 01/09/19 01/09/19 01/10/19 20:32 21:00 22:37 04:04 Temp 97.6 98.0 Pulse 90 88 89 Resp 20 18 B/P (MAP) 102/56 106/65 (79) 110/72 (85) Pulse Ox 98 99 98 O2 Delivery Room Air Room Air Room Air 01/10/19 01/10/19 01/10/19 04:59 05:01 07:38 Pulse 87 B/P (MAP) 106/66 (79) Pulse Ox 95 O2 Delivery Room Air Room Air Intake and Output 01/09/19 01/09/19 01/10/19 14:59 22:59 06:59 Intake Total 1140 ml 1390 ml 1000 ml Output Total 900 ml Balance 1140 ml 490 ml 1000 ml ANDRE MARSHALL [employer] Jan 10, 2019 08:48
[2019-01-10] MEDS: METOPROLOL TART IMMED RELEASE 25 MG TABLET PO SCH ×3 (09:00→23:13)
[2019-01-10 10:56] VITALS: BP 107/71
[2019-01-10 15:31] VITALS: BP 108/73
[2019-01-10] MEDS: RIVAROXABAN 10 MG TABLET. PO SCH (17:17)
[2019-01-10 19:24] VITALS: BP 122/65
--- NOTE | 2019-01-10 21:11 | PN ---
DATE: 01/10/2019 SUBJECTIVE: The patient is resting slightly propped up in bed, in no apparent respiratory distress. She is awake, alert. She apparently had an episode of hypotension last night for which we gave her a liter of fluid. She also has an episode where she said that her vision was distorted and seeing people with green skin and has also an episode of vertigo with things spinning around; however, by the time I saw her this morning, she is feeling much improved. OBJECTIVE: GENERAL: On examining her, she was pale, no jaundice, cyanosis, or thyromegaly. No jugular venous distention. No lower limb edema. VITAL SIGNS: Her heart rate was 96, blood pressure was 107/71, temperature was 97.7, respiratory rate was 20, and oxygen saturation was 96%. HEAD, EYES, EARS, NOSE AND THROAT: Showed normocephalic, atraumatic. NECK: Supple. HEART: Showed normal first and second heart sounds with no gallop, rub or murmur. CHEST: Clear to auscultation. No crepitation or rhonchi. ABDOMEN: Distended, soft, nontender. NEUROLOGIC: She was awake, alert, responding appropriately. All cranial nerves intact. She moves upper extremities without difficulty. She has paraplegia due to longstanding multiple sclerosis with neurogenic bladder requiring indwelling Chang catheter. Her intake over the last 24 hours was 1300. LABORATORY DATA: Her white cell count was 15,300, hemoglobin 13.7, hematocrit 40, MCV 87 and platelet count of 329,000. Her chemistry showed a serum sodium 140, potassium 4.3, chloride 108, bicarbonate 19, anion gap of 13, BUN of 18, creatinine was 1.1, estimated GFR was 50 mL per minute. Her glucose was 115, calcium was 8.2. Total bilirubin, AST, ALT, alkaline phosphatase were normal. Total protein was 6.6, albumin was 2.9. Her second set of cardiac enzymes showed troponin to be 0.080. Her serum triglycerides 148, total cholesterol 191, VLDL cholesterol 117, LDL was 29, and HDL 45, ratio was 4. TSH was 1.272. ASSESSMENT: 1. The patient was admitted with palpitation. Her cardiac enzymes were slightly elevated, felt to be secondary to demand ischemia. 2. Urinary tract infection with leukocytosis for which she is on oral Bactrim as well as IV vancomycin. 3. Acute kidney injury with a creatinine of 1.4 that has improved. Her creatinine is down to 1.1 from 1.4. 4. Hypokalemia, resolved. Her urine culture is still pending at the time of this dictation. PLAN: To continue with IV antibiotic in the form of vancomycin and Bactrim. Continue with all other medication. I will continue to hold meloxicam, lisinopril, furosemide, and ibuprofen. NATALIA QUIJANO MD DR: OTONIEL/[email or web address] JOB#: [id number] / [id number]
[2019-01-10] MEDS ORDERED: LORazepam 0.5 MG TABLET PO ONE (21:15)
[2019-01-10 23:02] VITALS: BP 129/84
[2019-01-11] MEDS: IPRATRPIUM/ALBUTEROL 0.5/2.5MG 3 ML NEBU. NEB SCH ×4 (05:05→19:56)
[2019-01-11 05:55] VITALS: BP 137/82
[2019-01-11] MEDS: POTASSIUM CL 40MEQ IN 0.9%NACL 1,000 ML IV SCH (06:00)
[2019-01-11 06:22] LABS: HEMATOCRIT 32.2 % (36.0-47.0); HEMOGLOBIN 10.8 g/dL (12.0-15.5); RED BLOOD COUNT 3.66 x10^6/uL (3.50-5.40); RED CELL DISTRIBUTION WIDTH 13.8 % (11.5-14.5); WHITE BLOOD COUNT 8.9 x10^3/uL (4.0-11.0)
[2019-01-11 06:33] LABS: CALCIUM 8.9 mg/dL (8.5-10.1); CREATININE 0.8 mg/dL (0.6-1.0); GFR 72.7; POTASSIUM 4.9 mmol/L (3.5-5.1)
[2019-01-11 06:37] LABS: VANC TR 11.3 mcg/mL (10.0-20.0)
[2019-01-11] MEDS: VANCOMYCIN 1 GM in IV NORMAL SALINE 250ML 250 ML IV SCH (06:42)
[2019-01-11] MEDS: SMZ/TMP 800/160MG TABLET. PO SCH ×2 (08:53→20:26)
[2019-01-11] MEDS: METOPROLOL TART IMMED RELEASE 25 MG TABLET PO SCH ×2 (08:54→20:26)
[2019-01-11] MEDS: PANTOPRAZOLE 40 MG TABLET. PO SCH (08:54)
[2019-01-11] MEDS: CLOPIDOGREL BISULFATE 75 MG TABLET PO SCH (08:54)
[2019-01-11] MEDS: OXYBUTYNIN CHLORIDE 5 MG TABLET PO SCH ×3 (08:54→20:25)
[2019-01-11] MEDS: LACTOBACILLUS RHAMNOSUS GG 1 CAPSULE. PO SCH ×2 (08:54→20:25)
[2019-01-11] MEDS: PSEUDOEPHEDRINE ER 120 MG TABLET.ER. PO SCH ×2 (08:55→20:24)
[2019-01-11] MEDS: CETIRIZINE HCL 10 MG TABLET PO SCH ×2 (08:55→20:25)
--- NOTE | 2019-01-11 09:02 | PDOC ---
ANDRE MARSHALL SEO ASSOCIATE 01/11/19 0902: PROGRESS NOTES Diagnosis Problem Problems Medical Problems: (1) Chest pain Status: Acute Assessment Problems Medical Problems: (1) Chest pain Status: Acute 1. chest pain, atypical - angina free. echo with normal LV function and wall motion. Minimal elevation of trop likely secondary to urosepsis. Cont plavix , beta silvia. Plan for outpatient MPI. 2. PE - on Xarelto, Per PCP 3. Palpitations - No sig arrhythmias. consider decrease/discontinue pseudoephedrine. plan for outpatient MCT. 4. Hypertension - well controlled on current medical therapy 5. urosepsis - per PCP 6. anxiety - Per PCP Subjective c/o sore throat, no chest pain, no dyspnea, no palps Objective Vital Signs Date Time Temp Pulse Resp B/P (MAP) Pulse Ox O2 Delivery O2 Flow Rate FiO2 01/11/19 08:54 84 137/82 01/11/19 05:55 97.2 22 98 01/11/19 05:06 Room Air 01/09/19 04:20 96.0 Intake and Output 01/11/19 06:59 Intake Total 2041 ml Output Total 2100 ml Balance -59 ml Intake Oral 900 ml IV Total 1141 ml Output Urine Total 2100 ml Physical Exam gen: awake, alert, anxious, No acute distress CV: reg rate and rhythm, no gallops, clicks or rubs, no sig murmurs Lungs: basilar crackles improve with cough, otherwise clear abd: + bowel sounds ext : trace pedal edema Review of Relevant I have reviewed the following items [place] (where applicable) has been applied. Labs Laboratory Tests Test 01/10/19 07:50 01/11/19 05:53 Sodium Level 140 mmol/L (136-145) 138 mmol/L (136-145) Potassium Level 4.3 mmol/L (3.5-5.1) 4.9 mmol/L (3.5-5.1) Chloride Level 108 mmol/L (98-107) 106 mmol/L (98-107) Carbon Dioxide Level 19 mmol/L (21-32) 21 mmol/L (21-32) Anion Gap 13 (6-14) 11 (6-14) Blood Urea Nitrogen 18 mg/dL (7-20) 12 mg/dL (7-20) Creatinine 1.1 mg/dL (0.6-1.0) 0.8 mg/dL (0.6-1.0) Estimated GFR (Cockcroft-Gault) 50.3 72.7 BUN/Creatinine Ratio 16 (6-20) Glucose Level 115 mg/dL (70-99) 87 mg/dL (70-99) Calcium Level 8.2 mg/dL (8.5-10.1) 8.9 mg/dL (8.5-10.1) Total Bilirubin 0.2 mg/dL (0.2-1.0) Aspartate Amino Transf (AST/SGOT) 11 U/L (15-37) Alanine Aminotransferase (ALT/SGPT) 13 U/L (14-59) Alkaline Phosphatase 61 U/L (46-116) Total Protein 6.6 g/dL (6.4-8.2) Albumin 2.9 g/dL (3.4-5.0) Albumin/Globulin Ratio 0.8 (1.0-1.7) White Blood Count 8.9 x10^3/uL (4.0-11.0) Red Blood Count 3.66 x10^6/uL (3.50-5.40) Hemoglobin 10.8 g/dL (12.0-15.5) Hematocrit 32.2 % (36.0-47.0) Mean Corpuscular Volume 88 fL (79-100) Mean Corpuscular Hemoglobin 30 pg (25-35) Mean Corpuscular Hemoglobin Concent 34 g/dL (31-37) Red Cell Distribution Width 13.8 % (11.5-14.5) Platelet Count 276 x10^3/uL (140-400) Vancomycin Level Trough 11.3 mcg/mL (10.0-20.0) Vancomycin Last Dose Date 01/10/2019 Vancomycin Last Dose Time 0600 Microbiology 01/09/19 Blood Culture - Preliminary, Resulted NO GROWTH AFTER 2 DAYS... Medications Current Medications Lactated Ringer's 1,000 ml @ 1,000 mls/hr Q1H IV Last administered on at 03:17; Start 01/09/19 at 02:30; Stop 01/09/19 at 03:29; Status DC Clopidogrel Bisulfate (Plavix) 75 mg 1X ONCE PO Last administered on 01/09/19at 03:17; Start 01/09/19 at 02:30; Stop 01/09/19 at 02:31; Status DC Acetaminophen (Tylenol) 1,000 mg 1X ONCE PO Last administered on 01/09/19at 03: 29; Start 01/09/19 at 03:30; Stop 01/09/19 at 03:31; Status DC Trimethoprim/ Sulfamethoxazole (Starter Pack - Bactrim Ds) 1 startpack 1X ONCE PO Last administered on 01/09/19at 03:30; Start 01/09/19 at 03:30; Stop 01/09/19 at 03:31; Status DC Ondansetron HCl (Zofran) 4 mg PRN Q4HRS PRN IV NAUSEA/VOMITING; Start 01/09/19 at 03:45; Stop 01/10/19 at 03:44; Status DC Lactated Ringer's 1,000 ml @ 160 mls/hr Q6H15M IV Last administered on at 05:37; Start 01/09/19 at 04:00; Stop 01/09/19 at 13:52; Status DC Acetaminophen (Tylenol) 1,000 mg QIDPRN PRN PO fever, discomfort Last administered on 01/10/19at 07:18; Start 01/09/19 at 03:45 Trimethoprim/ Sulfamethoxazole (Bactrim Ds) 1 tab BID PO Last administered on at 08:53; Start 01/09/19 at 09:00 Vancomycin HCl 1 gm/Sodium Chloride 250 ml @ 250 mls/hr 1X ONCE IV ; Start 01/09/19 at 03:45; Stop 01/09/19 at 04:44; Status UNV Vancomycin HCl (Vanco Per Pharmacy) 1 each PRN DAILY PRN MC SEE COMMENTS Last administered on 01/09/19at 06:24; Start 01/09/19 at 03:45 Clopidogrel Bisulfate (Plavix) 75 mg DAILY PO Last administered on 01/11/19at 08: 54; Start 01/09/19 at 09:00 Rivaroxaban (Xarelto) 20 mg DAILYWSUP PO Last administered on 01/10/19at 17:17; Start 01/09/19 at 17:00 Vancomycin HCl 1.5 gm/Sodium Chloride 500 ml @ 250 mls/hr 1X ONCE IV Last administered on 01/09/19at 05:45; Start 01/09/19 at 04:00; Stop 01/09/19 at 05:59; Status DC Lactated Ringer's 1,000 ml @ 1,000 mls/hr 1X ONCE IV ; Start 01/09/19 at 04:00 ; Stop 01/09/19 at 04:59; Status DC Lisinopril (Prinivil) 20 mg DAILY PO ; Start 01/09/19 at 09:00; Stop 01/09/19 at 09:00; Status DC Hydrochlorothiazide (Hydrodiuril) 25 mg DAILY PO ; Start 01/09/19 at 09:00; Status Cancel Potassium Chloride (KCl Oral Soln) 40 meq 1X ONCE PO Last administered on at 05:38; Start 01/09/19 at 04:30; Stop 01/09/19 at 04:31; Status DC Albuterol/ Ipratropium (Duoneb) 3 ml RTQID NEB Last administered on 01/11/19at 05 :05; Start 01/09/19 at 08:00 Vancomycin HCl 1 gm/Sodium Chloride 250 ml @ 250 mls/hr Q24H IV Last administered on 01/11/19at 06:42; Start 01/10/19 at 06:00 Vancomycin HCl (Vancomycin Trough Level) 1 each 1X ONCE MC Last administered on 01/11/19at 05:30; Start 01/11/19 at 05:30; Stop 01/11/19 at 05:31; Status DC Lactobacillus Rhamnosus (Culturelle) 1 cap BID PO Last administered on at 08:54; Start 01/09/19 at 09:00 Albuterol Sulfate (Ventolin) 2.5 mg PRN Q4HRS PRN NEB SHORTNESS OF BREATH; Start 01/09/19 at 08:30 Furosemide (Lasix) 20 mg DAILY PO Last administered on 01/09/19at 09:55; Start at 09:00; Stop 01/09/19 at 13:51; Status DC Acetaminophen/ Hydrocodone Bitart (Lortab 5/325) 1 tab PRN BID PRN PO PAIN; Start 01/09/19 at 07:45 Rivaroxaban (Xarelto) 20 mg DAILY PO ; Start 01/09/19 at 09:00; Stop 01/09/19 at 09:00; Status DC Fluticasone Propionate (Flonase) 1 spray DAILY PRN NS .; Start 01/09/19 at 08:00 Lisinopril (Prinivil) 20 mg DAILY PO Last administered on 01/09/19 09:59; Start 01/09/19 at 09:00; Stop 01/09/19 at 13:51; Status DC Cetirizine HCl (ZyrTEC) 5 mg BID PO Last administered on 01/11/19 08:55; Start 01/09/19 at 09:00 Meloxicam (Mobic) 15 mg DAILY PO Last administered on 01/09/19 10:01; Start 01/09/19 at 09:00; Stop 01/09/19 at 13:51; Status DC Oxybutynin Chloride (Ditropan) 5 mg [id number] PO Last administered on 01/11/19 08: 54; Start 01/09/19 at 09:00 Famotidine (Pepcid) 20 mg DAILY PO Last administered on 01/09/19 10:01; Start 01/09/19 at 09:00; Stop 01/09/19 at 13:51; Status DC Hydrochlorothiazide (Hydrodiuril) 25 mg DAILY PO Last administered on 01/09/19 09:55; Start 01/09/19 at 09:00; Stop 01/09/19 at 13:51; Status DC Pseudoephedrine HCl (Sudafed 12-Hour) 120 mg BID PO Last administered on 08:55; Start 01/09/19 at 09:00 Metoprolol Tartrate (Lopressor) 12.5 mg BID PO Last administered on 01/11/19 08 :54; Start 01/09/19 at 09:30 Pantoprazole Sodium (Protonix) 40 mg DAILYAC PO Last administered on 01/11/19 08:54; Start 01/09/19 at 11:00 Potassium Chloride/Sodium Chloride 1,000 ml @ 75 mls/hr [id number] IV Last administered on 01/10/19 17:18; Start 01/09/19 at 14:00 Sodium Chloride 1,000 ml @ 1,000 mls/hr 1X ONCE IV Last administered on 4/1/ 19at 19:10; Start 01/09/19 at 19:15; Stop 01/09/19 at 20:15; Status DC Meclizine HCl (Antivert) 12.5 mg PRN Q6HRS PRN PO DIZZINESS Last administered on 01/10/19at 05:26; Start 01/10/19 at 05:15 Lorazepam (Ativan) 0.5 mg 1X ONCE PO Last administered on 01/10/19at 21:28; Start 01/10/19 at 21:15; Stop 01/10/19 at 21:16; Status DC Active Scripts Active Reported Claritin-D 12 Hour Tablet (Loratadine/Pseudoephedrine) 1 Each Tab.er.12h 1 Tab PO BID Lisinopril-Hctz 20-25 Mg Tab (Lisinopril/Hydrochlorothiazide) 1 Each Tablet 1 Tab PO DAILY Xarelto (Rivaroxaban) 10 Mg Tablet 2 Tab PO DAILY Ibuprofen 400 Mg Tablet 1.5 Tab PO TID PRN PRN Meloxicam 15 Mg Tablet 1 Tab PO DAILY Furosemide 20 Mg Tablet 1 Tab PO DAILY Ranitidine Hcl 150 Mg Capsule 1 Cap PO DAILY Hydrocodone-Apap 5-325 (Hydrocodone Bit/Acetaminophen) 1 Each Tablet 1 Tab PO PRN BID PRN Oxybutynin Chloride Er (Oxybutynin Chloride) 10 Mg Tab.er.24 10 Mg PO BID Bladder spasms LAST DOSE GIVEN: DATE: TIME: NEXT DOSE DUE: DATE: TIME: Flonase (Fluticasone Propionate) 16 Gm [place].susp 1 Spr NS DAILY PRN As needed for nasal congestion LAST DOSE GIVEN: DATE: TIME: NEXT DOSE DUE: DATE: TIME: Albuterol Sulfate Hfa Inhaler (Albuterol Sulfate) 8.5 Gm Hfa.aer.ad 2 Puff IH Q4HRS PRN As needed for Shortness of breath LAST DOSE GIVEN: DATE: TIME: NEXT DOSE DUE: DATE: TIME: Vitals/I & O Vital Sign - Last 24 Hours 01/10/19 01/10/19 01/10/19 01/10/19 10:56 11:10 15:31 16:36 Temp 97.7 97.6 Pulse 96 104 Resp 20 20 B/P (MAP) 107/71 (83) 108/73 (85) Pulse Ox 96 97 98 100 O2 Delivery Room Air Room Air Room Air Room Air 4/2/19 4/2/19 4/2/19 4/2/19 19:24 20:30 20:38 23:02 Temp 97.7 97.7 Pulse 115 117 Resp 20 20 B/P (MAP) 122/65 (84) 129/84 (99) Pulse Ox 99 98 100 O2 Delivery Room Air Room Air Room Air Room Air 01/10/19 01/11/19 01/11/19 01/11/19 23:13 05:06 05:55 08:54 Temp 97.2 Pulse 113 84 84 Resp 22 B/P (MAP) 129/84 137/82 (100) 137/82 Pulse Ox 94 98 O2 Delivery Room Air Intake and Output 01/10/19 01/10/19 01/11/19 14:59 22:59 06:59 Intake Total 240 ml 1373 ml 428 ml Output Total 900 ml 500 ml 700 ml Balance -660 ml 873 ml -272 ml MYLENE CEBALLOS MD 01/11/19 1622: PROGRESS NOTES Review of Relevant Pt. seen and examined. Agree with above [employer]ISITION MANAGER note. Supportive care. Thanks ANDRE MARSHALL SEO ASSOCIATE Jan 11, 2019 09:02 MYLENE CEBALLOS MD Jan 11, 2019 16:22
[2019-01-11] MEDS ORDERED: BENZOCAINE/MENTHOL LOZNGE 18'S BOX. PO PRN (09:15)
[2019-01-11] MEDS: VANCOMYCIN PER PHARMACY MC PRN (10:44)
[2019-01-11 10:53] VITALS: BP 122/83
--- NOTE | 2019-01-11 12:08 | RAD ---
CT of the head without contrast, 01/11/2019: HISTORY: Seizure Comparison is made to a study 12/18/2014. The ventricles are within normal limits in size. There are mild unchanged bilateral deep white matter lucencies compatible with chronic ischemic change. There is no shift of the midline structures. There is no evidence of acute intracranial hemorrhage or mass effect. No abnormal extra-axial fluid collection or mass is seen. IMPRESSION: 1. Mild chronic bilateral deep white matter lucencies compatible with small vessel ischemic change. 2. No acute intracranial abnormality is detected. PQRS Compliance Statement: One or more of the following individualized dose reduction techniques were utilized for this examination: 1. Automated exposure control 2. Adjustment of the mA and/or kV according to patient size 3. Use of iterative reconstruction technique Electronically signed by: Felipe Marx MD (01/11/2019 12:06 PM) [facility]
[2019-01-11 15:19] VITALS: BP 106/72
[2019-01-11] MEDS: RIVAROXABAN 10 MG TABLET. PO SCH (16:39)
[2019-01-11 19:44] VITALS: BP 130/74
[2019-01-11 22:29] VITALS: BP 106/71
--- NOTE | 2019-01-11 23:33 | PN ---
DATE: 01/11/2019 SUBJECTIVE: The patient is resting, slightly propped up in bed, in no apparent distress. She denied any further episodes of palpitation. No further episodes of chest pain. She has no fever. Her white cell count came down from 15,300 down to 8900. Her kidney function has improved from 1.4 to 0.8 with creatinine and her BUN came down from 38 to 12. Her blood culture so far showed no growth after 2 days. OBJECTIVE: GENERAL: When I examined her, she was pale, but no jaundice, cyanosis, or thyromegaly. No jugular venous distention. No lower limb edema. VITAL SIGNS: Her heart rate was 89, blood pressure 106/72, temperature was 98, respiratory rate was 20 and oxygen saturation was 95%. HEAD, EYES, EARS, NOSE AND THROAT: Showed normocephalic, atraumatic. NECK: Supple. HEART: Showed normal first and second heart sounds with no gallop, rub or murmur. CHEST: Clear to auscultation. No crepitation or rhonchi. ABDOMEN: Distended, soft, nontender. No guarding, rigidity. No organomegaly. All hernial orifice intact. Bowel sounds normal. NEUROLOGIC: She was awake, alert, responding appropriately. Cranial nerves are intact. She moves upper extremities to much good extent than the lower extremities. She has paraplegia due to longstanding multiple sclerosis with neurogenic bladder requiring indwelling Chang catheter. Her intake over the last 24 hours was 2000, output was 2100. LABORATORY DATA: As of this morning showed a serum sodium 138, potassium 4.9, chloride 106, bicarbonate 21, anion gap of 11, BUN 12, creatinine 0.8. Estimated GFR was 72mL per minute. Her glucose was 87. Calcium was 8.9. White cell count was 8900, hemoglobin 11, hematocrit 32, MCV 88 and platelet count of 276,000. Her prothrombin time was 12, INR 1.2, aPTT 32 and D-dimer was 0.57. PLAN: My plan is to discontinue the IV fluid, discontinue the vancomycin. Continue with Bactrim and we will evaluate her again tomorrow, and if she remains stable and they have the culture of the urine, she can be discharged back home. NATALIA QUIJANO MD DR: OTONIEL/josesito JOB#: [id number] / [id number]
--- NOTE | 2019-01-12 04:11 | CONS ---
DATE OF CONSULTATION: 01/11/2019 NEUROLOGIC CONSULTATION REFERRING PHYSICIAN: Candy Viera MD REASON FOR CONSULTATION: Rule out seizure. HISTORY OF PRESENT ILLNESS: This is a 63-year-old right-handed female, who has had advanced multiple sclerosis, diagnosed 2 years ago, resulted in paraplegia and urinary incontinence, paraplegia and neurogenic bladder require a permanent indwelling urinary catheterization. She was admitted on 01/09/2019 on account of chest pain and palpitation. A neurological consult was requested because the patient had intermittent episode of lightheadedness and tremor of the upper extremities. She denies a history of a seizure. The episode lasted a few seconds/few minutes. The patient denies chest pain, shortness of breath, vertigo, diplopia, dysarthria, or dysphagia. PAST MEDICAL HISTORY: Significant for multiple sclerosis diagnosed 12 years ago as described above. She has been wheelchair bound since, history of palpitations, atypical chest pain, frequent urinary tract infections, recent pulmonary embolism and history of DVT. She also complains of chronic lower back pain and she related that to degenerative disk disease. Depressions. PAST SURGICAL HISTORY: Significant for corrective surgery during childhood. SOCIAL HISTORY: The patient denies smoking, alcohol drinking, or illicit drug use. CURRENT MEDICATIONS: Include metoprolol, meclizine, ____, pantoprazole, Sudafed, oxybutynin, Zyrtec, Plavix, Bactrim-DS, albuterol inhaler, Flonase nasal spray, Lortab, and Tylenol. ALLERGIES: ASPIRIN, LEVOFLOXACIN, PENICILLIN G, CHLORPROMAZINE, AND AMOXAPINE. REVIEW OF SYSTEMS: A 10-point review of system was performed as mentioned above in the history of present illness. PHYSICAL EXAMINATION: GENERAL: Well-developed, well-nourished female, not in acute distress. She weighs 137 pounds. VITAL SIGNS: Blood pressure 122/83, respiratory rate 20, pulse 80, temperature 97.9, oxygen saturation is 97% on room air. HEENT: Normocephalic, atraumatic, otherwise unremarkable. NECK: Supple. Negative for carotid bruit, lymphadenopathy or thyromegaly. LUNGS: Clear to A and P. CARDIOVASCULAR: Regular rate and rhythm, normal S1, S2. There is no S3, S4 or murmur. ABDOMEN: Soft. Bowel sounds positive. EXTREMITIES: Negative for cyanosis, clubbing, pitting edema. NEUROLOGICAL EXAMINATION: MENTAL STATUS: The patient is alert and oriented x 3. The speech is fluent. There is no language dysfunction. Memory, judgment, and abstracting thinking are normal. The patient denies hallucination or delusion. CRANIAL NERVES: Visual keane are full. The pupils are reactive to light and accommodation. Extraocular movements are intact. There is no nystagmus. There is no facial motor or sensory deficit. Hearing is intact bilaterally. The palate is elevated symmetrically. Sternocleidomastoid muscles are powerful bilaterally. The patient shrugs her shoulders symmetrically, protrudes her tongue in the midline without fasciculation or atrophy. MOTOR: No focal muscle bulk was seen. Tone is normal. The strength is 4/5 in the upper extremity and 0/5 in the lower extremity due to paraplegia. Sensory examination revealed diminished pinprick and light touch senses in patchy distributions in both lower extremities. Deep tendon reflexes were symmetric and hypoactive with a positive Babinski bilaterally. Gait not tested, as the patient is having paraplegia. DIAGNOSTIC DATA: Head CT scan revealed chronic bilateral deep white matter lucency consistent with small vessel ischemic changes, otherwise no acute intracranial process. CT of the lumbar spine revealed mild degenerative changes of the lumbar spine. Otherwise, no acute abnormalities, left intrarenal calculus was found with cholelithiasis. Chest x-ray revealed no evidence of acute cardiopulmonary process. Echocardiogram from 01/09/2019 revealed normal left ventricular systolic function with ejection fraction more than 55%, otherwise unremarkable. EKG revealed a sinus tachycardia at a rate of [address] changes. LABORATORY DATA: CBC revealed white blood cells of 8.9 thousand, hemoglobin 10.8, hematocrit 32.2, platelet count 276,000. Chemistry revealed sodium of 138, potassium 4.9, chloride 106, CO2 of 21, BUN 12, creatinine 0.8, calcium 8.9. Urinalysis is positive for small urinary leukocyte esterase with white blood cells of 6-10 consistent with urinary tract infections. Urine drug screen is negative. PT is 12 and INR is 1.2 with elevated D-dimer at 0.54. IMPRESSION: 1. A 12-year history of advanced multiple sclerosis resulted in paraplegia and permanent indwelling urinary catheterization. 2. Frequent episode of lightheadedness and mild tremor. None existing during this evaluation. No evidence of seizure-like activities. 3. Multiple medical problems include frequent urinary tract infections, recent history of pulmonary embolism and deep venous thromboses. 4. Gastroesophageal reflux disease and chronic lower back pain, probably due to degenerative disk disease. RECOMMENDATIONS: 1. We will continue with current management initiated by Dr. Viera. 2. No further neurological ____. M Leela FRIAS MD DR: PEGGY/josesito JOB#: [id number] / [id number]
--- NOTE | 2019-01-12 04:31 | CONS ---
DATE OF CONSULTATION: NEUROLOGICAL CONSULTATION REFERRING PHYSICIAN: Candy Viera MD REASON FOR CONSULTATION: Rule out seizure. HISTORY OF PRESENT ILLNESS: This is a 63-year-old right-handed female, who was admitted to the Emergency Room on 01/09/2019 on account of chest pain and palpitation. A neuro consult was requested because the patient has recurrent episode described as intermittent brief tremor of the upper extremity with lightheadedness lasted a few seconds to a few minutes. She denies seizure-like activities or loss of consciousness. The patient recalled event. The patient denies any recent or previous history of a seizure. On occasions, she described dizziness and complains of chronic lower back pain and frequent urinary tract infections. The patient denies nausea, vomiting, dysarthria, dysphagia. PAST MEDICAL HISTORY: Significant for multiple sclerosis diagnosed 12 years ago resulted in permanent indwelling urinary catheterization and paraplegia, history of pulmonary embolism diagnosed 2 months ago and recent DVTs, GERD, depression and neurogenic bladder. FAMILY HISTORY: Noncontributory. SOCIAL HISTORY: The patient is single. She has never been . She had no children. She denies smoking. Use alcohol occasionally. She denies illegal drug use. CURRENT HOME MEDICATIONS: ____, loratadine, Xarelto, lisinopril/hydrochlorothiazide, hydrocodone, furosemide, Flonase nasal spray, ranitidine and oxybutynin. ALLERGIES: PENICILLIN, LOVENOX, LEVOFLOXACIN, PENICILLIN, PROMETHAZINE AND ASPIRIN. REVIEW OF SYSTEMS: A 10-point review of system was performed as mentioned above in history of present illness, otherwise unremarkable. PHYSICAL EXAMINATION: GENERAL: Well-developed, well-nourished female, not in acute distress. She weighs 137.4 pounds. VITAL SIGNS: Blood pressure 122/83, respiratory rate 20, pulse is 80, temperature 97.9, oxygen saturation 97% on room air. HEENT: Normocephalic, atraumatic, otherwise unremarkable. NECK: Supple. Negative for carotid bruit, lymphadenopathy or thyromegaly. LUNGS: Clear to A and P. CARDIOVASCULAR: Regular rate and rhythm, normal S1, S2. ABDOMEN: Soft. Bowel sounds positive. EXTREMITIES: Negative for cyanosis, clubbing or edema. NEUROLOGICAL EXAMINATION: MENTAL STATUS: The patient is alert and oriented x 3. Speech is fluent. There is no language dysfunction. Memory, the patient recalls 2/3 immediately and after 1 and 3 minutes. Judgment and abstracting thinking are normal. The patient denies hallucination or delusion. CRANIAL NERVES: Visual keane are full. The pupils are reactive to light and accommodation. The extraocular movements are intact. There is no nystagmus. There is no facial motor or sensory deficit. Hearing is intact bilaterally. The palate is elevated symmetrically. Sternocleidomastoid muscles are powerful bilaterally. The patient shrugs her shoulders symmetrically, protrudes her tongue in the midline without fasciculation or atrophy. MOTOR: No focal muscle bulk was seen. The tone is normal. The strength is 4/5 in the upper extremities and 0/5 in the lower extremities. Sensory examination revealed diminished pinprick and light touch senses in patchy distributions in both upper and lower extremities. Deep tendon reflexes were symmetric and active with positive Babinski bilaterally. Gait: The patient is confined to a wheelchair. DIAGNOSTIC DATA: Head CT scan revealed small vessel ischemic changes, otherwise no acute intracranial process. CT of the lumbar spine reveals mild degenerative disk disease of the lumbar spine and a chest x-ray for no evidence of acute cardiopulmonary process. Echocardiogram revealed a normal left ventricular systolic function with normal ejection fraction greater than 55%, otherwise unremarkable and EKG revealed a mild tachycardia of [address] segments. LABORATORY DATA: CBC revealed white blood cells of 8.9 thousand, hemoglobin 10.8, hematocrit 32.2, platelet count 276,000. Chemistry revealed sodium of 138, potassium 4.9, chloride 106, CO2 of 21, BUN 12, creatinine 0.8, calcium 8.9 and glucose 87. Liver enzymes are low with normal alkaline phosphatase. Troponin level is 0.08. Lipid profile revealed elevated LDL at 117 with normal cholesterol and triglyceride. Urinalysis is positive for urinary tract infections. Urine drug screen is negative. IMPRESSION: 1. Advanced multiple sclerosis of 12 years' duration resulted in paraplegia and neurogenic bladder, required a permanent indwelling urinary catheterization. 2. Frequent urinary tract infections. 3. Multiple medical problems include chronic low back pain, gastroesophageal reflux disease, recent deep venous thrombosis and pulmonary embolism. RECOMMENDATIONS: 1. Continue with current management initiated by Dr. Viera. 2. No further neurological workup is recommended at this time. M F. HABIB, MD DR: PEGGY/josesito JOB#: [id number] / [id number]
[2019-01-12] MEDS: IPRATRPIUM/ALBUTEROL 0.5/2.5MG 3 ML NEBU. NEB SCH ×2 (04:45→10:46)
[2019-01-12 05:16] VITALS: BP 104/67
[2019-01-12] MEDS: OXYBUTYNIN CHLORIDE 5 MG TABLET PO SCH ×2 (07:43→15:05)
[2019-01-12] MEDS: PANTOPRAZOLE 40 MG TABLET. PO SCH (07:43)
[2019-01-12] MEDS: LACTOBACILLUS RHAMNOSUS GG 1 CAPSULE. PO SCH (07:43)
[2019-01-12] MEDS: CLOPIDOGREL BISULFATE 75 MG TABLET PO SCH (07:43)
[2019-01-12] MEDS: CETIRIZINE HCL 10 MG TABLET PO SCH (07:43)
[2019-01-12] MEDS: SMZ/TMP 800/160MG TABLET. PO SCH (07:43)
[2019-01-12] MEDS: METOPROLOL TART IMMED RELEASE 25 MG TABLET PO SCH (07:44)
[2019-01-12] MEDS: PSEUDOEPHEDRINE ER 120 MG TABLET.ER. PO SCH (07:44)
[2019-01-12 07:54] LABS: HEMATOCRIT 31.9 % (36.0-47.0); HEMOGLOBIN 10.8 g/dL (12.0-15.5); RED BLOOD COUNT 3.65 x10^6/uL (3.50-5.40); RED CELL DISTRIBUTION WIDTH 13.8 % (11.5-14.5); WHITE BLOOD COUNT 7.2 x10^3/uL (4.0-11.0)
[2019-01-12 08:09] LABS: CALCIUM 8.8 mg/dL (8.5-10.1); CREATININE 0.9 mg/dL (0.6-1.0); GFR 63.4; POTASSIUM 4.9 mmol/L (3.5-5.1)
[2019-01-12 11:25] VITALS: BP 124/78
--- NOTE | 2019-01-12 14:58 | PDOC ---
PROGRESS NOTES Diagnosis Problem Problems Medical Problems: (1) Chest pain Status: Acute Assessment Problems Medical Problems: (1) Chest pain Status: Acute 1. chest pain, atypical - angina free. echo with normal LV function and wall motion. Minimal elevation of trop likely secondary to urosepsis. Cont plavix , beta silvia. Plan for outpatient MPI. Supportive care for now. no new CV rec's. 2. PE - on Xarelto, Per PCP 3. Palpitations - No sig arrhythmias. consider decrease/discontinue pseudoephedrine. plan for outpatient MCT. 4. Hypertension - well controlled on current medical therapy 5. urosepsis - per PCP 6. anxiety - Per PCP Subjective c/o sore throat and hoarseness. no chest pain, no dyspnea Objective Vital Signs Date Time Temp Pulse Resp B/P (MAP) Pulse Ox O2 Delivery O2 Flow Rate FiO2 01/12/19 11:25 98.0 87 20 124/78 (93) 100 Room Air 01/09/19 04:20 96.0 Intake and Output 01/12/19 07:00 Intake Total 1133.68 ml Output Total 3450 ml Balance -2316.32 ml Intake Oral 550 ml IV Total 583.68 ml Output Urine Total 3450 ml Physical Exam gen: awake, alert, anxious, No acute distress CV: reg rate and rhythm, no gallops, clicks or rubs, no sig murmurs Lungs: basilar crackles improve with cough, otherwise clear abd: + bowel sounds ext : trace pedal edema Review of Relevant I have reviewed the following items [place] (where applicable) has been applied. Labs Laboratory Tests Test 01/11/19 05:53 01/12/19 07:44 White Blood Count 8.9 x10^3/uL (4.0-11.0) 7.2 x10^3/uL (4.0-11.0) Red Blood Count 3.66 x10^6/uL (3.50-5.40) 3.65 x10^6/uL (3.50-5.40) Hemoglobin 10.8 g/dL (12.0-15.5) 10.8 g/dL (12.0-15.5) Hematocrit 32.2 % (36.0-47.0) 31.9 % (36.0-47.0) Mean Corpuscular Volume 88 fL (79-100) 87 fL (79-100) Mean Corpuscular Hemoglobin 30 pg (25-35) 30 pg (25-35) Mean Corpuscular Hemoglobin Concent 34 g/dL (31-37) 34 g/dL (31-37) Red Cell Distribution Width 13.8 % (11.5-14.5) 13.8 % (11.5-14.5) Platelet Count 276 x10^3/uL (140-400) 299 x10^3/uL (140-400) Sodium Level 138 mmol/L (136-145) 138 mmol/L (136-145) Potassium Level 4.9 mmol/L (3.5-5.1) 4.9 mmol/L (3.5-5.1) Chloride Level 106 mmol/L (98-107) 107 mmol/L (98-107) Carbon Dioxide Level 21 mmol/L (21-32) 19 mmol/L (21-32) Anion Gap 11 (6-14) 12 (6-14) Blood Urea Nitrogen 12 mg/dL (7-20) 15 mg/dL (7-20) Creatinine 0.8 mg/dL (0.6-1.0) 0.9 mg/dL (0.6-1.0) Estimated GFR (Cockcroft-Gault) 72.7 63.4 Glucose Level 87 mg/dL (70-99) 76 mg/dL (70-99) Calcium Level 8.9 mg/dL (8.5-10.1) 8.8 mg/dL (8.5-10.1) Vancomycin Level Trough 11.3 mcg/mL (10.0-20.0) Vancomycin Last Dose Date 01/10/2019 Vancomycin Last Dose Time 0600 Microbiology 01/09/19 Blood Culture - Preliminary, Resulted NO GROWTH AFTER 3 DAYS... 01/09/19 Urine Culture - Final, Complete 01/09/19 Urine Culture Result 1 (SANDEE) - Final, Complete Medications Current Medications Lactated Ringer's 1,000 ml @ 1,000 mls/hr Q1H IV Last administered on at 03:17; Start 01/09/19 at 02:30; Stop 01/09/19 at 03:29; Status DC Clopidogrel Bisulfate (Plavix) 75 mg 1X ONCE PO Last administered on 01/09/19at 03:17; Start 01/09/19 at 02:30; Stop 01/09/19 at 02:31; Status DC Acetaminophen (Tylenol) 1,000 mg 1X ONCE PO Last administered on 01/09/19at 03: 29; Start 01/09/19 at 03:30; Stop 01/09/19 at 03:31; Status DC Trimethoprim/ Sulfamethoxazole (Starter Pack - Bactrim Ds) 1 startpack 1X ONCE PO Last administered on 01/09/19at 03:30; Start 01/09/19 at 03:30; Stop 01/09/19 at 03:31; Status DC Ondansetron HCl (Zofran) 4 mg PRN Q4HRS PRN IV NAUSEA/VOMITING; Start 01/09/19 at 03:45; Stop 01/10/19 at 03:44; Status DC Lactated Ringer's 1,000 ml @ 160 mls/hr Q6H15M IV Last administered on at 05:37; Start 01/09/19 at 04:00; Stop 01/09/19 at 13:52; Status DC Acetaminophen (Tylenol) 1,000 mg QIDPRN PRN PO fever, discomfort Last administered on 01/10/19 07:18; Start 01/09/19 at 03:45 Trimethoprim/ Sulfamethoxazole (Bactrim Ds) 1 tab BID PO Last administered on 07:43; Start 01/09/19 at 09:00 Vancomycin HCl 1 gm/Sodium Chloride 250 ml @ 250 mls/hr 1X ONCE IV ; Start 01/09/19 at 03:45; Stop 01/09/19 at 04:44; Status UNV Vancomycin HCl (Vanco Per Pharmacy) 1 each PRN DAILY PRN MC SEE COMMENTS Last administered on 01/11/19at 10:44; Start 01/09/19 at 03:45 Clopidogrel Bisulfate (Plavix) 75 mg DAILY PO Last administered on 01/12/19 07: 43; Start 01/09/19 at 09:00 Rivaroxaban (Xarelto) 20 mg DAILYWSUP PO Last administered on 01/11/19at 16:39; Start 01/09/19 at 17:00 Vancomycin HCl 1.5 gm/Sodium Chloride 500 ml @ 250 mls/hr 1X ONCE IV Last administered on 01/09/19at 05:45; Start 01/09/19 at 04:00; Stop 01/09/19 at 05:59; Status DC Lactated Ringer's 1,000 ml @ 1,000 mls/hr 1X ONCE IV ; Start 01/09/19 at 04:00 ; Stop 01/09/19 at 04:59; Status DC Lisinopril (Prinivil) 20 mg DAILY PO ; Start 01/09/19 at 09:00; Stop 01/09/19 at 09:00; Status DC Hydrochlorothiazide (Hydrodiuril) 25 mg DAILY PO ; Start 01/09/19 at 09:00; Status Cancel Potassium Chloride (KCl Oral Soln) 40 meq 1X ONCE PO Last administered on at 05:38; Start 01/09/19 at 04:30; Stop 01/09/19 at 04:31; Status DC Albuterol/ Ipratropium (Duoneb) 3 ml RTQID NEB Last administered on 01/12/19at 10 :46; Start 01/09/19 at 08:00 Vancomycin HCl 1 gm/Sodium Chloride 250 ml @ 250 mls/hr Q24H IV Last administered on 01/11/19at 06:42; Start 01/10/19 at 06:00; Stop 01/11/19 at 15:59; Status DC Vancomycin HCl (Vancomycin Trough Level) 1 each 1X ONCE MC Last administered on 01/11/19at 05:30; Start 01/11/19 at 05:30; Stop 01/11/19 at 05:31; Status DC Lactobacillus Rhamnosus (Culturelle) 1 cap BID PO Last administered on at 07:43; Start 01/09/19 at 09:00 Albuterol Sulfate (Ventolin) 2.5 mg PRN Q4HRS PRN NEB SHORTNESS OF BREATH; Start 01/09/19 at 08:30 Furosemide (Lasix) 20 mg DAILY PO Last administered on 01/09/19at 09:55; Start at 09:00; Stop 01/09/19 at 13:51; Status DC Acetaminophen/ Hydrocodone Bitart (Lortab 5/325) 1 tab PRN BID PRN PO PAIN; Start 01/09/19 at 07:45 Rivaroxaban (Xarelto) 20 mg DAILY PO ; Start 01/09/19 at 09:00; Stop 01/09/19 at 09:00; Status DC Fluticasone Propionate (Flonase) 1 spray DAILY PRN NS .; Start 01/09/19 at 08:00 Lisinopril (Prinivil) 20 mg DAILY PO Last administered on 01/09/19at 09:59; Start 01/09/19 at 09:00; Stop 01/09/19 at 13:51; Status DC Cetirizine HCl (ZyrTEC) 5 mg BID PO Last administered on 01/12/19 07:43; Start 01/09/19 at 09:00 Meloxicam (Mobic) 15 mg DAILY PO Last administered on 01/09/19 10:01; Start 01/09/19 at 09:00; Stop 01/09/19 at 13:51; Status DC Oxybutynin Chloride (Ditropan) 5 mg [id number] PO Last administered on 01/12/19 07: 43; Start 01/09/19 at 09:00 Famotidine (Pepcid) 20 mg DAILY PO Last administered on 01/09/19 10:01; Start 01/09/19 at 09:00; Stop 01/09/19 at 13:51; Status DC Hydrochlorothiazide (Hydrodiuril) 25 mg DAILY PO Last administered on 01/09/19 09:55; Start 01/09/19 at 09:00; Stop 01/09/19 at 13:51; Status DC Pseudoephedrine HCl (Sudafed 12-Hour) 120 mg BID PO Last administered on 20:24; Start 01/09/19 at 09:00 Metoprolol Tartrate (Lopressor) 12.5 mg BID PO Last administered on 01/11/19 08 :54; Start 01/09/19 at 09:30; Stop 01/11/19 at 17:00; Status DC Pantoprazole Sodium (Protonix) 40 mg DAILYAC PO Last administered on 01/12/19 07:43; Start 01/09/19 at 11:00 Potassium Chloride/Sodium Chloride 1,000 ml @ 75 mls/hr [id number] IV Last administered on 4/2/19at 17:18; Start 01/09/19 at 14:00; Stop 01/11/19 at 15:59; Status DC Sodium Chloride 1,000 ml @ 1,000 mls/hr 1X ONCE IV Last administered on at 19:10; Start 01/09/19 at 19:15; Stop 01/09/19 at 20:15; Status DC Meclizine HCl (Antivert) 12.5 mg PRN Q6HRS PRN PO DIZZINESS Last administered on 01/10/19at 05:26; Start 01/10/19 at 05:15 Lorazepam (Ativan) 0.5 mg 1X ONCE PO Last administered on 01/10/19at 21:28; Start 01/10/19 at 21:15; Stop 01/10/19 at 21:16; Status DC Throat Lozenges (Cepacol Sore Throat Lozenge) 1 orestes PRN Q2HR PRN PO SORE THROAT ; Start 01/11/19 at 09:15 Metoprolol Tartrate (Lopressor) 25 mg BID PO Last administered on 01/12/19at 07: 44; Start 01/11/19 at 21:00 Active Scripts Active Reported Claritin-D 12 Hour Tablet (Loratadine/Pseudoephedrine) 1 Each Tab.er.12h 1 Tab PO BID Lisinopril-Hctz 20-25 Mg Tab (Lisinopril/Hydrochlorothiazide) 1 Each Tablet 1 Tab PO DAILY Xarelto (Rivaroxaban) 10 Mg Tablet 2 Tab PO DAILY Ibuprofen 400 Mg Tablet 1.5 Tab PO TID PRN PRN Meloxicam 15 Mg Tablet 1 Tab PO DAILY Furosemide 20 Mg Tablet 1 Tab PO DAILY Ranitidine Hcl 150 Mg Capsule 1 Cap PO DAILY Hydrocodone-Apap 5-325 (Hydrocodone Bit/Acetaminophen) 1 Each Tablet 1 Tab PO PRN BID PRN Oxybutynin Chloride Er (Oxybutynin Chloride) 10 Mg Tab.er.24 10 Mg PO BID Bladder spasms LAST DOSE GIVEN: DATE: TIME: NEXT DOSE DUE: DATE: TIME: Flonase (Fluticasone Propionate) 16 Gm [place].susp 1 Spr NS DAILY PRN As needed for nasal congestion LAST DOSE GIVEN: DATE: TIME: NEXT DOSE DUE: DATE: TIME: Albuterol Sulfate Hfa Inhaler (Albuterol Sulfate) 8.5 Gm Hfa.aer.ad 2 Puff IH Q4HRS PRN As needed for Shortness of breath LAST DOSE GIVEN: DATE: TIME: NEXT DOSE DUE: DATE: TIME: Vitals/I & O Vital Sign - Last 24 Hours 01/11/19 01/11/19 01/11/19 01/11/19 15:19 16:05 19:44 19:57 Temp 98.0 98.0 Pulse 89 90 Resp 20 22 B/P (MAP) 106/72 (83) 130/74 (92) Pulse Ox 95 98 98 95 O2 Delivery Room Air Room Air Room Air Room Air 01/11/19 01/11/19 01/11/19 01/12/19 20:00 20:26 22:29 04:46 Temp 98.1 Pulse 90 80 Resp 22 B/P (MAP) 130/74 106/71 (83) Pulse Ox 96 97 O2 Delivery Room Air Room Air Room Air 01/12/19 01/12/19 01/12/19 01/12/19 05:16 07:44 10:46 11:25 Temp 98.1 98.0 Pulse 84 84 87 Resp 20 20 B/P (MAP) 104/67 (79) 104/67 124/78 (93) Pulse Ox 97 98 100 O2 Delivery Room Air Room Air Room Air Intake and Output 01/11/19 01/11/19 01/12/19 15:00 23:00 07:00 Intake Total 1133.68 ml Output Total 800 ml 1200 ml 1450 ml Balance -800 ml -66.32 ml -1450 ml ANDRE MARSHALL VP [employer] Jan 12, 2019 14:58
[2019-01-12] MEDS ORDERED: METO25TA4 PO (15:25)
[2019-01-12] MEDS ORDERED: SULF1TAB23 PO (15:25)
[2019-01-12 15:44] VITALS: BP 125/83
--- NOTE | 2019-01-12 17:12 | DS ---
DATE OF DISCHARGE: 01/12/2019 HOSPITAL COURSE: The patient is a 63-year-old female patient who was admitted through the Emergency Room with a complaint of palpitation and fast heart rate with some central chest pain. She has also pain in her left-sided chest, but she had a PE about 2 months ago and she has been taking Xarelto, and also has fever and she gets recurrent urinary tract infection due to indwelling Chang catheter. She has neurogenic bladder due to longstanding multiple sclerosis. We did actually send blood and urine for culture and sensitivity. Her blood cultures were negative and her urine has grown greater than 100,000 colony forming units per mL, 2 organisms recovered. Because of the list of antibiotic allergies, she was started on vancomycin and Bactrim. Initially on arrival, she was found to have also hypokalemia and acute kidney injury, transpired that she was on large number of nephrotoxic medications, she is on ibuprofen and Meloxicam. She is also on Plavix, hydrochlorothiazide, and lisinopril; so I held actually her hydrochlorothiazide and lisinopril as well as ibuprofen and meloxicam, started her on IV fluid and continued with vancomycin and Bactrim. She did very well. She remained afebrile throughout her stay here. Her white cell count came down nicely from 15,000-7200. Her kidney function has improved with a creatinine down from 1.4-0.9. Her BUN came down from 38-15 and a decision was made to discharge her home to continue with Bactrim for another 5 days. She was seen in consultation by the contingents supervisor and her echocardiogram showed that she has normal left ventricular systolic function, ejection fraction was within normal range, more than 55%. She has normal left ventricular segmental wall motion. She has 3 sets of troponin that was slightly elevated, but felt to be secondary to likely demand ischemia and the patient was discharged home with home health. PHYSICAL EXAMINATION: GENERAL: When I saw her today, she was resting slightly propped up in bed, in no apparent respiratory distress. She was pale, but no jaundice, cyanosis, or thyromegaly. No jugular venous distension. No lower limb edema. VITAL SIGNS: Her heart rate was 87, blood pressure 124/78, temperature was 98, respiratory rate 20, and oxygen saturation was 100% on room air. HEAD, EYES, EARS, NOSE AND THROAT: Normocephalic, atraumatic. NECK: Supple. HEART: Showed normal first and second heart sounds. No gallop, rub or murmur. CHEST: Clear to auscultation. No crepitation or rhonchi. ABDOMEN: Distended, soft, nontender. NEUROLOGIC: She is awake, alert, responding appropriately. All cranial nerves intact. She moves upper extremities without difficulty. She has paraplegia to longstanding multiple sclerosis with neurogenic bladder requiring indwelling Chang catheter. She is mostly bed bound, wheelchair bound. Her intake over the last 24 hours was 2040, output was 2100. LABORATORY DATA: As of this morning showed a serum sodium 138, potassium 4.9, chloride 107, bicarbonate 19, anion gap of 12, BUN 15, creatinine 0.9, estimated GFR was 63 mL per minute. Her glucose was 76, calcium was 8.8. Her white cell count was 7200, hemoglobin 11, hematocrit 32, MCV 87, and platelet count 299,000. Her prothrombin time was 12, INR 1.2, APTT was 32. D-dimer was 0.54. Urinalysis showed the urine was yellow, hazy, was positive for nitrite and positive for also leukocyte esterase with 6-10 rbc's, more than 40 wbc's. DISCHARGE MEDICATIONS: The patient was discharged home to continue albuterol sulfate 2 puffs every 4 hours, Flonase 1 spray to each nostril twice a day, furosemide 20 mg daily, hydrocodone/APAP 5/325 one tablet twice a day, ibuprofen 400 mg, she takes 600 mg 3 times a day, lisinopril/hydrochlorothiazide 20/25 one tablet daily, loratadine/pseudoephedrine for Claritin-D 1 tablet twice a day, meloxicam 15 mg daily, oxybutynin chloride 10 mg tablet twice a day, ranitidine 150 mg and rivaroxaban (Xarelto) 10 mg daily. She was also discharged on Bactrim-DS. She was also discharged on metoprolol tartrate 25 mg twice a day. FINAL DISCHARGE DIAGNOSES: Chest pain, atypical, she has actually if anything palpitation. Her echocardiogram showed that she has normal left ventricular systolic function and wall motion. She was continued on Plavix and beta blockers, pulmonary embolism for which she is on Xarelto, palpitation, no significant arrhythmias. The patient is reluctant to discontinue pseudoephedrine, hypertension, urinary tract infection for which she is on Bactrim-DS. NATALIA QUIJANO MD DR: [email or web address]/[email or web address] JOB#: [id number] / [id number]
--- NOTE | 2019-01-12 21:12 | PN ---
DATE: 01/12/2019 SUBJECTIVE: The patient denies any new medical or neurological complaints; however, she said her voice has been messed up this morning, mainly when she have dry mouth. The patient also complains of localized neck pain. OBJECTIVE: GENERAL: Well-developed, well-nourished female, not in acute distress. VITAL SIGNS: Blood pressure 104/67, respiratory rate 20, pulse is 84, oxygen saturation 97% on room air. HEENT: Normocephalic, atraumatic, otherwise, unremarkable. NECK: Supple. Negative for carotid bruit, lymphadenopathy or thyromegaly. LUNGS: Clear to A and P. CARDIOVASCULAR: Regular rate and rhythm. Normal S1, S2. There is no S3, S4, or murmur. ABDOMEN: Soft. Bowel sounds positive. EXTREMITIES: Negative for cyanosis, clubbing or pitting edema. NEUROLOGIC: Mental status: The patient is alert and oriented x 3. Speech is fluent. There is no language dysfunction. Memory, judgment, and abstract thinking are normal. The patient denies hallucination or delusion. Cranial nerves are intact. No focal motor in the upper extremity. The strength was 4/5 throughout. The patient has paraplegia. Sensory examination revealed diminished pinprick and light touch senses in patchy distributions in both upper and lower extremities. Deep tendon reflexes were symmetric and active with positive Babinski bilaterally. Gait: The patient has paraplegia. LABORATORY DATA: CBC revealed white blood cells 7200, hemoglobin 10.8, hematocrit 31.9, platelet count 299,000. Chemistry revealed sodium of 138, potassium 4.9, chloride 107, CO2 of 19, BUN 15, creatinine 0.9. Glucose is 76 and calcium 8.8. IMPRESSION: 1. Advanced multiple sclerosis with paraplegia and neurogenic bladder requiring permanent indwelling urinary catheterization: 2. Urinary tract infections. 3. Multiple medical problems include chronic low back pain, gastroesophageal reflux disease, recent pulmonary embolism and deep venous thrombosis. RECOMMENDATIONS: 1. Continue with current management initiated by Dr. Viera. 2. Workup for neck pain can be done on an outpatient basis. The patient should be followed in [facility]rology [facility] and with Dr. Frias after 1 week from discharge. M Leela FRIAS MD DR: [email or web address]/[email or web address] JOB#: [id number] / [id number]
[2019-01-13 17:07] LABS: H PYLORI IGA <9.0 units (0.0-8.9); H PYLORI IGM <9.0 units (0.0-8.9)
== END 2019-01-12 16:00 | disposition home health service (06) | DRG 871 ==
LOC: ER 02:14 → 1 SOUTH 02:30
PROVIDERS: ADMIT Internal Medicine; ATTEND Internal Medicine
DX: A41.9 Sepsis, unspecified organism (principal); N17.0 Acute kidney failure with tubular necrosis; N39.0 Urinary tract infection, site not specified; G82.20 Paraplegia, unspecified; E87.6 Hypokalemia; F41.9 Anxiety disorder, unspecified; G35 Multiple sclerosis; G89.29 Other chronic pain; I10 Essential (primary) hypertension; J45.909 Unspecified asthma, uncomplicated; K21.9 Gastro-esophageal reflux disease without esophagitis; N31.9 Neuromuscular dysfunction of bladder, unspecified; Z79.01 Long term (current) use of anticoagulants; Z79.02 Long term (current) use of antithrombotics/antiplatelets; Z86.711 Personal history of pulmonary embolism; Z86.718 Personal history of other venous thrombosis and embolism; Z87.440 Personal history of urinary (tract) infections; Z88.1 Allergy status to other antibiotic agents; Z99.3 Dependence on wheelchair; E66.9 Obesity, unspecified; F32.9 Major depressive disorder, single episode, unspecified
CPT/HCPCS: 36415; 70450; 71045; 72131; 80048; 80053; 80061; 80076; 80202; 80307; 81001; 82550; 83605; 83690; 83735; 83880; 84443; 84484; 85007; 85025; 85027; 85379; 85610; 85651; 85730; 86677; 87040; 87086; 93005; 93306; 94640; 94760; 96360; G0238; J3370; J7040; J7050; J7120; J7620; J8597; 99285-25; J7030

== ENCOUNTER 2019-01-18 23:28 | Emergency (ER) | payer MEDICARE, BC, OTHER ==
[~2019-01-18] VITALS: Ht 137.2 cm; Wt 61.0 kg
[~2019-01-18 23:28] MED LIST changes: +IBUP400T18 PO; +IV RINGERS SOLUTION,LACTATED 1,000 ML IV SCH; +LISI1TAB7 PO; +LORA1TAB47 PO; +METO25TA4 PO; +SULF1TAB23 PO
--- NOTE | 2019-01-18 23:38 | ED.ADGEN ---
Past History Past Medical History: Anxiety, Asthma, DVT, UTI, Other Past Medical History MS Past Surgical History: Other Smoking: Non-smoker Alcohol Use: None Drug Use: None Adult General Chief Complaint Chief Complaint .." The DISTANCE EDUCATION TEACHER who takes my BP.. said it was too low... and I needed to come to hospital.. I just got out the other day... ".. " I don't want to be admitted.. I just got out of here.. and my birthday is on Wednesday... and I just won $100 in [employer]... so do what you have to do.. but let me go home..." HPI HPI Patient is a 63 year old female who presents with hx of hypotension at home by her this DISTANCE EDUCATION TEACHER. Patient reportedly had systolics 90s / 40. Patient recently admitted for UTI. Patient was to get catheter removal on the however the DISTANCE EDUCATION TEACHER that does that did not show up. Patient's urinary catheter was not replaced during her previous admission. Patient now has a blood pressure 115/45. Pt. has a chronic urinary tension and UTIs due to to chronic Chang placement. Patient has significant medical history for multiple sclerosis sclerosis, functional paraplegia, neurogenic bladder, deconditioning. Patient does have a follow-up with Dr. Salazar on Wednesday. She denies any recent fever or chills. Patient has multiple drug allergies aspirin, Lovenox, Levaquin, penicillin, Phenergan and Compazine. Patient recently admitted on 01/09/2019 for urinary tract infection, leukocytosis, dehydration, hypokalemia, lactic acidosis, palpitations. Pt. finished her last Bactrim today. Review of Systems Review of Systems Constitutional: Denies fever or chills [] Eyes: Denies change in visual acuity, redness, or eye pain [] HENT: Denies nasal congestion or sore throat [] Respiratory: Denies cough or shortness of breath [] Cardiovascular: No additional information not addressed in HPI [] GI: Denies abdominal pain, nausea, vomiting, bloody stools or diarrhea [] : Denies dysuria or hematuria [] Musculoskeletal: Denies back pain or joint pain [] Integument: Denies rash or skin lesions [] Neurologic: Denies headache, focal weakness or sensory changes [] Endocrine: Denies polyuria or polydipsia [] All other systems were reviewed and found to be within normal limits, except as documented in this note. Family History Family History Adopted Current Medications Current Medications Current Medications Medications (Trade) Dose Ordered Sig/Monie Start Time Stop Time Status Last Admin Dose Admin Lactated Ringer's 1,000 ml @ 1,000 mls/hr Q1H 01/19/19 01:15 01/19/19 02:14 DC 01/19/19 01:18 1,000 MLS/HR Phenazopyridine HCl (Pyridium) 200 mg 1X ONCE 01/19/19 03:00 01/19/19 03:01 UNV Trimethoprim/ Sulfamethoxazole (Bactrim Ds) 1 tab 1X ONCE 01/19/19 03:30 01/19/19 03:31 DC 01/19/19 03:12 1 TAB Allergies Allergies Allergies Coded Allergies Type Severity Reaction Last Updated Verified penicillin G Allergy Severe Swell up/red. 11/04/18 Yes levofloxacin Allergy Intermediate 09/26/15 Yes aspirin Adverse Reaction Intermediate N/V 09/26/15 Yes enoxaparin sodium Adverse Reaction Intermediate Mouth swells. 09/26/15 Yes prochlorperazine edisylate Adverse Reaction Intermediate "I feel high" Yes prochlorperazine maleate Adverse Reaction Intermediate 09/26/15 Yes Physical Exam Physical Exam Constitutional: , no acute distress, non-toxic appearance. [] HENT: Normocephalic, atraumatic, bilateral external ears normal, oropharynx dry , no oral exudates, nose normal. []Poor dentition. Eyes: PERRLA, EOMI, conjunctiva normal, no discharge. [] Neck: Normal range of motion, no tenderness, supple, no stridor. [] Cardiovascular:Bradycardia Heart rate regular rhythm, no murmur [] Lungs & Thorax: Bilateral breath sounds equal apex with few wheezes on auscultation [] Abdomen: Bowel sounds normal, soft, no tenderness, no masses, no pulsatile masses. Chang. Skin: Warm, dry, no erythema, no rash. [] Back: No tenderness, no CVA tenderness. [] Extremities: No tenderness, no cyanosis, no clubbing, ROM intact upper arms or at her baseline, ankle edema. [] Lower limbs, foot drop, paraplegic- from MS Neurologic: Alert and oriented X 3, paraplegic, no focal deficits noted from her base line. Psychologic: Affect normal, judgement normal, mood normal. [] Current Patient Data Vital Signs Vital Signs Date Time Temp Pulse Resp B/P (MAP) Pulse Ox O2 Delivery O2 Flow Rate FiO2 01/19/19 01:28 57 18 89/55 (66) 97 Room Air 01/18/19 23:30 97.7 Lab Results Laboratory Tests Test 01/19/19 00:42 01/19/19 00:47 White Blood Count 9.8 x10^3/uL (4.0-11.0) Red Blood Count 4.05 x10^6/uL (3.50-5.40) Hemoglobin 12.2 g/dL (12.0-15.5) Hematocrit 35.8 % (36.0-47.0) L Mean Corpuscular Volume 88 fL (79-100) Mean Corpuscular Hemoglobin 30 pg (25-35) Mean Corpuscular Hemoglobin Concent 34 g/dL (31-37) Red Cell Distribution Width 13.9 % (11.5-14.5) Platelet Count 427 x10^3/uL (140-400) H Neutrophils (%) (Auto) 66 % (31-73) Lymphocytes (%) (Auto) 24 % (24-48) Monocytes (%) (Auto) 8 % (0-9) Eosinophils (%) (Auto) 2 % (0-3) Basophils (%) (Auto) 1 % (0-3) Neutrophils # (Auto) 6.4 x10^3uL (1.8-7.7) Lymphocytes # (Auto) 2.3 x10^3/uL (1.0-4.8) Monocytes # (Auto) 0.8 x10^3/uL (0.0-1.1) Eosinophils # (Auto) 0.2 x10^3/uL (0.0-0.7) Basophils # (Auto) 0.1 x10^3/uL (0.0-0.2) Erythrocyte Sedimentation Rate 54 (0-25) H Prothrombin Time 10.7 SEC (9.4-11.4) Prothrombin Time INR 1.1 (0.9-1.1) PTT 28 SEC (23-33) D-Dimer (Didi) 0.62 mg/L (0.00-0.50) H Sodium Level 136 mmol/L (136-145) Potassium Level 4.7 mmol/L (3.5-5.1) Chloride Level 103 mmol/L (98-107) Carbon Dioxide Level 22 mmol/L (21-32) Anion Gap 11 (6-14) Blood Urea Nitrogen 66 mg/dL (7-20) H Creatinine 2.5 mg/dL (0.6-1.0) H Estimated GFR (Cockcroft-Gault) 19.5 Glucose Level 97 mg/dL (70-99) Lactic Acid Level 0.6 mmol/L (0.4-2.0) Calcium Level 9.2 mg/dL (8.5-10.1) Magnesium Level 3.2 mg/dL (1.8-2.4) H Total Bilirubin 0.2 mg/dL (0.2-1.0) Direct Bilirubin < 0.1 mg/dL (0.0-0.2) Aspartate Amino Transferase (AST) 12 U/L (15-37) L Alanine Aminotransferase (ALT) 28 U/L (14-59) Alkaline Phosphatase 82 U/L (46-116) Creatine Kinase 38 U/L (26-192) Troponin I Quantitative < 0.017 ng/mL (0-0.055) YC-Cmk-S-Type Natriuretic Peptide 124 pg/mL (0-124) Total Protein 8.2 g/dL (6.4-8.2) Albumin 4.0 g/dL (3.4-5.0) Lipase 575 U/L (73-393) H Urine Collection Type U cath Urine Color Yellow Urine Clarity Cloudy Urine pH 5.0 Urine Specific [place] 1.010 Urine Protein Neg (NEG-TRACE) Urine Glucose (UA) Neg mg/dL (NEG) Urine Ketones (Stick) Neg mg/dL (NEG) Urine Blood Trace (NEG) Urine Nitrite Neg (NEG) Urine Bilirubin Neg (NEG) Urine Urobilinogen Dipstick 0.2 mg/dL (0.2 mg/dL) Urine Leukocyte Esterase Large (NEG) Urine RBC Occ /HPF (0-2) Urine WBC 5-10 /HPF (0-4) Urine Squamous Epithelial Cells Few /LPF Urine Bacteria Few /HPF (0-FEW) Urine Opiates Screen Neg (NEG) Urine Methadone Screen Neg (NEG) Urine Barbiturates Neg (NEG) Urine Phencyclidine Screen Neg (NEG) Urine Amphetamine/Methamphetamine Neg (NEG) Urine Benzodiazepines Screen Neg (NEG) Urine Cocaine Screen Neg (NEG) Urine Cannabinoids Screen Neg (NEG) Urine Ethyl Alcohol Neg (NEG) EKG EKG My interpretation of EKG shows a sinus bradycardia at 54. There is some mild leftward axis. No findings acute STEMI of contralateral changes.[] Radiology/Procedures Radiology/Procedures My interpretation of chest x-ray shows no acute cardiopulmonary findings as compared to previous films[] Course & Med Decision Making Course & Med Decision Making Pertinent Labs and Imaging studies reviewed. (See chart for details) Pt. demands discharge. BP stabilized with Fluid bolus. Pt. to continue Bactrim. Keep follow up with Dr. Delvalle as already scheduled on Wednesday. Must push fluids. [] Final Impression Final Impression 1.[]Hypotension- 2. MS 3. Functional Paraplegic 4. Hx. Frequent UTI- Marked WBC on tonight urine after cath change 5. Dehydration 6. Elevated Bun/creat 66/2.5 7. Elevated Lipase 575 8. Elevated Mag 3.2 9. Bradycardia- 54 Dragon Disclaimer Dragon Disclaimer This electronic medical record was generated, in whole or in part, using a voice recognition dictation system. Discharge Summary Visit Information Final Diagnosis Problems Medical Problems: (1) Dehydration Status: Acute Brief Hospital Course Allergies Allergies Coded Allergies Type Severity Reaction Last Updated Verified penicillin G Allergy Severe Swell up/red. 11/04/18 Yes levofloxacin Allergy Intermediate 09/26/15 Yes aspirin Adverse Reaction Intermediate N/V 09/26/15 Yes enoxaparin sodium Adverse Reaction Intermediate Mouth swells. 09/26/15 Yes prochlorperazine edisylate Adverse Reaction Intermediate "I feel high" Yes prochlorperazine maleate Adverse Reaction Intermediate 09/26/15 Yes Vital Signs Vital Signs Date Time Temp Pulse Resp B/P (MAP) Pulse Ox O2 Delivery O2 Flow Rate FiO2 01/19/19 01:28 57 18 89/55 (66) 97 Room Air 01/18/19 23:30 97.7 Lab Results Laboratory Tests Test 01/19/19 00:42 01/19/19 00:47 White Blood Count 9.8 x10^3/uL (4.0-11.0) Red Blood Count 4.05 x10^6/uL (3.50-5.40) Hemoglobin 12.2 g/dL (12.0-15.5) Hematocrit 35.8 % (36.0-47.0) Mean Corpuscular Volume 88 fL (79-100) Mean Corpuscular Hemoglobin 30 pg (25-35) Mean Corpuscular Hemoglobin Concent 34 g/dL (31-37) Red Cell Distribution Width 13.9 % (11.5-14.5) Platelet Count 427 x10^3/uL (140-400) Neutrophils (%) (Auto) 66 % (31-73) Lymphocytes (%) (Auto) 24 % (24-48) Monocytes (%) (Auto) 8 % (0-9) Eosinophils (%) (Auto) 2 % (0-3) Basophils (%) (Auto) 1 % (0-3) Neutrophils # (Auto) 6.4 x10^3uL (1.8-7.7) Lymphocytes # (Auto) 2.3 x10^3/uL (1.0-4.8) Monocytes # (Auto) 0.8 x10^3/uL (0.0-1.1) Eosinophils # (Auto) 0.2 x10^3/uL (0.0-0.7) Basophils # (Auto) 0.1 x10^3/uL (0.0-0.2) Erythrocyte Sedimentation Rate 54 (0-25) Prothrombin Time 10.7 SEC (9.4-11.4) Prothromb Time International Ratio 1.1 (0.9-1.1) Activated Partial Thromboplast Time 28 SEC (23-33) D-Dimer (Didi) 0.62 mg/L (0.00-0.50) Sodium Level 136 mmol/L (136-145) Potassium Level 4.7 mmol/L (3.5-5.1) Chloride Level 103 mmol/L (98-107) Carbon Dioxide Level 22 mmol/L (21-32) Anion Gap 11 (6-14) Blood Urea Nitrogen 66 mg/dL (7-20) Creatinine 2.5 mg/dL (0.6-1.0) Estimated GFR (Cockcroft-Gault) 19.5 Glucose Level 97 mg/dL (70-99) Lactic Acid Level 0.6 mmol/L (0.4-2.0) Calcium Level 9.2 mg/dL (8.5-10.1) Magnesium Level 3.2 mg/dL (1.8-2.4) Total Bilirubin 0.2 mg/dL (0.2-1.0) Direct Bilirubin < 0.1 mg/dL (0.0-0.2) Aspartate Amino Transf (AST/SGOT) 12 U/L (15-37) Alanine Aminotransferase (ALT/SGPT) 28 U/L (14-59) Alkaline Phosphatase 82 U/L (46-116) Creatine Kinase 38 U/L (26-192) Troponin I Quantitative < 0.017 ng/mL (0-0.055) EO-Akv-W-Type Natriuretic Peptide 124 pg/mL (0-124) Total Protein 8.2 g/dL (6.4-8.2) Albumin 4.0 g/dL (3.4-5.0) Lipase 575 U/L (73-393) Urine Collection Type U cath Urine Color Yellow Urine Clarity Cloudy Urine pH 5.0 Urine Specific [place] 1.010 Urine Protein Neg (NEG-TRACE) Urine Glucose (UA) Neg mg/dL (NEG) Urine Ketones (Stick) Neg mg/dL (NEG) Urine Blood Trace (NEG) Urine Nitrite Neg (NEG) Urine Bilirubin Neg (NEG) Urine Urobilinogen Dipstick 0.2 mg/dL (0.2 mg/dL) Urine Leukocyte Esterase Large (NEG) Urine RBC Occ /HPF (0-2) Urine WBC 5-10 /HPF (0-4) Urine Squamous Epithelial Cells Few /LPF Urine Bacteria Few /HPF (0-FEW) Urine Opiates Screen Neg (NEG) Urine Methadone Screen Neg (NEG) Urine Barbiturates Neg (NEG) Urine Phencyclidine Screen Neg (NEG) Urine Amphetamine/Methamphetamine Neg (NEG) Urine Benzodiazepines Screen Neg (NEG) Urine Cocaine Screen Neg (NEG) Urine Cannabinoids Screen Neg (NEG) Urine Ethyl Alcohol Neg (NEG) Brief Hospital Course Ms. Tyler is a 63 old female who presented with hypotension. [place] hypotension due to dehydration. Pt. hx know MS and UTI. Discharge Information Condition at Discharge: Improved, Stable Disposition/Orders: D/C to Home Dischare Medications Current Medications Lactated Ringer's 1,000 ml @ 1,000 mls/hr Q1H IV ; Start 01/18/19 at 00:00; Stop 01/18/19 at 00:59; Status Cancel Lactated Ringer's 1,000 ml @ 1,000 mls/hr Q1H IV Last administered on at 01:18; Admin Dose 1,000 MLS/HR; Start 01/19/19 at 01:15; Stop 01/19/19 at 02:14; Status DC Trimethoprim/ Sulfamethoxazole (Bactrim Ds) 1 tab 1X ONCE PO Last administered on 01/19/19at 03:12; Admin Dose 1 TAB; Start 01/19/19 at 03:30; Stop 01/19/19 at 03:31; Status DC Phenazopyridine HCl (Pyridium) 200 mg 1X ONCE PO Last administered on at 03:12; Admin Dose 200 MG; Start 01/19/19 at 03:30; Stop 01/19/19 at 03:31; Status DC Phenazopyridine HCl (Pyridium) 200 mg 1X ONCE PO ; Start 01/19/19 at 03:00; Stop 01/19/19 at 03:01; Status UNV Active Scripts Active Bactrim Ds Tablet (Sulfamethoxazole/Trimethoprim) 1 Each Tablet 1 Tab PO BID Metoprolol Tartrate 25 Mg Tablet 1 Tab PO BID Bactrim 400-80 Mg Tablet (Sulfamethoxazole/Trimethoprim) 1 Each Tablet 1 Tab PO BID 5 Days Reported Ibuprofen 400 Mg Tablet 600 Mg PO TID Claritin-D 12 Hour Tablet (Loratadine/Pseudoephedrine) 1 Each Tab.er.12h 1 Tab PO BID Lisinopril-Hctz 20-25 Mg Tab (Lisinopril/Hydrochlorothiazide) 1 Each Tablet 1 Tab PO DAILY Xarelto (Rivaroxaban) 10 Mg Tablet 2 Tab PO DAILY Meloxicam 15 Mg Tablet 1 Tab PO DAILY Furosemide 20 Mg Tablet 1 Tab PO DAILY Ranitidine Hcl 150 Mg Capsule 1 Cap PO DAILY Hydrocodone-Apap 5-325 (Hydrocodone Bit/Acetaminophen) 1 Each Tablet 1 Tab PO PRN BID PRN Oxybutynin Chloride Er (Oxybutynin Chloride) 10 Mg Tab.er.24 10 Mg PO BID Bladder spasms LAST DOSE GIVEN: DATE: TIME: NEXT DOSE DUE: DATE: TIME: Flonase (Fluticasone Propionate) 16 Gm [place].susp 1 Spr NS DAILY PRN As needed for nasal congestion LAST DOSE GIVEN: DATE: TIME: NEXT DOSE DUE: DATE: TIME: Albuterol Sulfate Hfa Inhaler (Albuterol Sulfate) 8.5 Gm Hfa.aer.ad 2 Puff IH Q4HRS PRN As needed for Shortness of breath LAST DOSE GIVEN: DATE: TIME: NEXT DOSE DUE: DATE: TIME: Dragon Disclaimer This chart was dictated in whole or in part using Voice Recognition software in a busy, high-work load, and often noisy Emergency Department environment. It may contain unintended and wholly unrecognized errors or omissions. RAFFI CLARKE MD Jan 18, 2019 23:38
[2019-01-18] MEDS ORDERED: IBUP400T18 PO (23:47)
[2019-01-19 01:03] LABS: BASO # 0.1 x10^3/uL (0.0-0.2); BASO % 1 % (0-3); EOS # 0.2 x10^3/uL (0.0-0.7); EOS % 2 % (0-3); HEMATOCRIT 35.8 % (36.0-47.0); HEMOGLOBIN 12.2 g/dL (12.0-15.5); LYMPH # 2.3 x10^3/uL (1.0-4.8); LYMPH % 24 % (24-48); MEAN CORPUSCULAR HEMOGLOBIN 30 pg (25-35); MEAN CORPUSCULAR HGB CONC 34 g/dL (31-37); MEAN CORPUSCULAR VOLUME 88 fL (79-100); MONO # 0.8 x10^3/uL (0.0-1.1); MONO % 8 % (0-9); NEUT # 6.4 x10^3uL (1.8-7.7); NEUT % 66 % (31-73); PLATELET COUNT 427 x10^3/uL (140-400); RED BLOOD COUNT 4.05 x10^6/uL (3.50-5.40); RED CELL DISTRIBUTION WIDTH 13.9 % (11.5-14.5); WHITE BLOOD COUNT 9.8 x10^3/uL (4.0-11.0)
[2019-01-19] MEDS ORDERED: IV RINGERS SOLUTION,LACTATED 1,000 ML IV SCH (01:15)
[2019-01-19 01:21] LABS: BARBITURATES NEG (NEG); BENZODIAZEPINES NEG (NEG); CANNABINOIDS NEG (NEG); COCAINE NEG (NEG); METHADONE NEG (NEG); OPIATES NEG (NEG); PHENCYCLIDINE NEG (NEG)
[2019-01-19 01:26] LABS: BACTERIA,URINE FEW /HPF (0-FEW); BILIRUBIN,URINE NEG (NEG); CLARITY,URINE CLOUDY; COLOR,URINE YELLOW; GLUCOSE,URINE NEG (NEG); NITRITE,URINE NEG (NEG); RBC,URINE OCC /HPF (0-2); SQUAMOUS EPITHELIAL CELL,UR FEW /LPF; UROBILINOGEN,URINE 0.2 mg/dL (0.2 mg/dL)
[2019-01-19 01:28] LABS: AMPHETAMINE/METHAMPHETAMINE NEG (NEG)
[2019-01-19 01:31] LABS: ALK PHOS 82 U/L (46-116); ALT (SGPT) 28 U/L (14-59); ANION GAP 11 (6-14); AST (SGOT) 12 U/L (15-37); BLOOD UREA NITROGEN 66 mg/dL (7-20); CALCIUM 9.2 mg/dL (8.5-10.1); CARBON DIOXIDE 22 mmol/L (21-32); CHLORIDE 103 mmol/L (98-107); CREATININE 2.5 mg/dL (0.6-1.0); GFR 19.5; GLUCOSE 97 mg/dL (70-99); LIPASE 575 U/L (73-393); MAGNESIUM 3.2 mg/dL (1.8-2.4); POTASSIUM 4.7 mmol/L (3.5-5.1); SODIUM 136 mmol/L (136-145); TOTAL BILIRUBIN 0.2 mg/dL (0.2-1.0); TOTAL PROTEIN 8.2 g/dL (6.4-8.2)
[2019-01-19 01:33] LABS: DIRECT BILIRUBIN < 0.1 mg/dL (0.0-0.2)
[2019-01-19 02:01] LABS: SEDIMENTATION RATE 54 (0-25)
[2019-01-19] MEDS ORDERED: SULF1TAB24 PO (02:49)
[2019-01-19] MEDS ORDERED: PHENAZOPYRIDINE 200 MG TABLET. PO ONE ×2 (03:00→03:30)
[2019-01-19] MEDS ORDERED: SMZ/TMP 800/160MG TABLET. PO ONE (03:30)
[2019-01-19 04:00] VITALS: BP 133/62
--- NOTE | 2019-01-19 06:57 | EKG ---
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
--- NOTE | 2019-01-19 07:52 | RAD ---
Examination: PORTABLE CHEST 1V History: HYPOTENSION Comparison/Correlation: 01/09/2019 portable chest x-ray exam Findings: Upright portable frontal view chest was obtained. Heart size and pulmonary vasculature are normal. No infiltrate or pleural effusion. No pneumothorax. No acute bony process. Impression: No active disease. Electronically signed by: González Matthews MD (01/19/2019 7:49 AM) [facility]
== END 2019-01-19 04:07 | disposition home or self-care (01) ==
LOC: ER 23:28
DX: I95.9 Hypotension, unspecified (principal); G35 Multiple sclerosis; F44.4 Conversion disorder with motor symptom or deficit; E86.0 Dehydration; R74.8 Abnormal levels of other serum enzymes; R00.1 Bradycardia, unspecified; R79.89 Other specified abnormal findings of blood chemistry; R79.0 Abnormal level of blood mineral; Z87.440 Personal history of urinary (tract) infections; F41.9 Anxiety disorder, unspecified; J45.909 Unspecified asthma, uncomplicated; Z86.718 Personal history of other venous thrombosis and embolism; Z88.0 Allergy status to penicillin; Z88.1 Allergy status to other antibiotic agents; Z88.6 Allergy status to analgesic agent; Z88.8 Allergy status to other drugs, medicaments and biological substances
CPT/HCPCS: 36415; 51702; 71045; 80048; 80076; 80307; 81001; 82550; 83605; 83690; 83735; 83880; 84443; 84484; 85025; 85379; 85610; 85651; 85730; 87040; 87086; 93005; 96360; 96361; 99284; J7120

== ENCOUNTER 2019-02-08 10:20 | Emergency (ER) | payer MEDICARE, BC, OTHER ==
[~2019-02-08 10:20] MED LIST changes: -IV RINGERS SOLUTION,LACTATED 1,000 ML IV SCH
[2019-02-08 11:42] LABS: ALBUMIN 3.4 g/dL (3.4-5.0); ALBUMIN/GLOBULIN RATIO 0.9 (1.0-1.7); CALCIUM 8.6 mg/dL (8.5-10.1); POTASSIUM 3.6 mmol/L (3.5-5.1); TOTAL BILIRUBIN 0.3 mg/dL (0.2-1.0); TOTAL PROTEIN 7.1 g/dL (6.4-8.2)
[2019-02-08 11:45] LABS: BASO # 0.1 x10^3/uL (0.0-0.2); BASO % 1 % (0-3); EOS # 0.3 x10^3/uL (0.0-0.7); EOS % 5 % (0-3); HEMATOCRIT 31.7 % (36.0-47.0); HEMOGLOBIN 10.8 g/dL (12.0-15.5); LYMPH # 1.4 x10^3/uL (1.0-4.8); LYMPH % 24 % (24-48); MEAN CORPUSCULAR HEMOGLOBIN 30 pg (25-35); MEAN CORPUSCULAR HGB CONC 34 g/dL (31-37); MEAN CORPUSCULAR VOLUME 89 fL (79-100); MONO # 0.4 x10^3/uL (0.0-1.1); MONO % 8 % (0-9); NEUT # 3.6 x10^3uL (1.8-7.7); NEUT % 62 % (31-73); PLATELET COUNT 344 x10^3/uL (140-400); RED BLOOD COUNT 3.58 x10^6/uL (3.50-5.40); RED CELL DISTRIBUTION WIDTH 15.2 % (11.5-14.5); WHITE BLOOD COUNT 5.8 x10^3/uL (4.0-11.0)
--- NOTE | 2019-02-08 11:51 | PHYS DOC ---
Past History Past Medical History: Anxiety, Asthma, DVT, GERD, Hypertension, UTI, Vascular Disease, Other Past Surgical History: Other Smoking: Non-smoker Alcohol Use: None Drug Use: None Adult General Chief Complaint Chief Complaint: DYSPNEA/RESPIRATOY DISTRESS [facility] HPI Patient is a 64-year-old female who presents with complaint of shortness of breath and a little bit of chest tightness that is been present for the last few days. Patient states that she was seen by her primary care doctor about a week ago and has had some changes to medications. Patient does admit to recent diagnosis of pulmonary embolism a couple of months ago and states that she is taking Zarrella toe for that. She denies any actual pain in her chest. She states that it just feels tight. Patient states that symptoms are worsened with exertion. She does admit to swelling in her feet and lower legs and states that is off and on and chronic. She denies any nausea, vomiting or diaphoresis. Review of Systems Review of Systems Constitutional: Denies fever or chills [] Respiratory: Complains of shortness of breath [] Cardiovascular: No additional information not addressed in HPI [] GI: Denies abdominal pain, nausea, vomiting or diarrhea [] Neurologic: Denies headache, focal weakness or sensory changes [] All other systems were reviewed and found to be within normal limits, except as documented in this note. Allergies Allergies Allergies Coded Allergies Type Severity Reaction Last Updated Verified penicillin G Allergy Severe Swell up/red. 11/04/18 Yes levofloxacin Allergy Intermediate 09/26/15 Yes aspirin Adverse Reaction Intermediate N/V 09/26/15 Yes enoxaparin sodium Adverse Reaction Intermediate Mouth swells. 09/26/15 Yes prochlorperazine edisylate Adverse Reaction Intermediate "I feel high" 09/26/15 Yes prochlorperazine maleate Adverse Reaction Intermediate 09/26/15 Yes Physical Exam Physical Exam Constitutional: Well developed, well nourished, no acute distress, non-toxic appearance. [] HENT: Normocephalic, atraumatic, bilateral external ears normal, oropharynx moist, no oral exudates, nose normal. [] Eyes: PERRLA, EOMI, conjunctiva normal, no discharge. [] Neck: Normal range of motion, no tenderness, supple, no stridor. [] Cardiovascular:Heart rate regular rhythm, no murmur [] Lungs & Thorax: Bilateral breath sounds clear to auscultation [] Abdomen: Bowel sounds normal, soft, no tenderness. [] Skin: Warm, dry. [] Extremities: No tenderness, no cyanosis, no clubbing, ROM intact. [] Neurologic: Alert and oriented X 3, no focal deficits noted. [] Current Patient Data Lab Results Laboratory Tests Test 02/08/19 11:39 Sodium Level 145 mmol/L (136-145) Potassium Level 3.6 mmol/L (3.5-5.1) Chloride Level 109 mmol/L (98-107) H Carbon Dioxide Level 27 mmol/L (21-32) Anion Gap 9 (6-14) Blood Urea Nitrogen 12 mg/dL (7-20) Creatinine 1.0 mg/dL (0.6-1.0) Estimated GFR (Cockcroft-Gault) 56.0 BUN/Creatinine Ratio 12 (6-20) Glucose Level 87 mg/dL (70-99) Calcium Level 8.6 mg/dL (8.5-10.1) Total Bilirubin 0.3 mg/dL (0.2-1.0) Aspartate Amino Transferase (AST) 13 U/L (15-37) L Alanine Aminotransferase (ALT) 18 U/L (14-59) Alkaline Phosphatase 69 U/L (46-116) Troponin I Quantitative < 0.017 ng/mL (0-0.055) QD-Jyf-J-Type Natriuretic Peptide 249 pg/mL (0-124) H Total Protein 7.1 g/dL (6.4-8.2) Albumin 3.4 g/dL (3.4-5.0) Albumin/Globulin Ratio 0.9 (1.0-1.7) L EKG EKG EKG demonstrates sinus bradycardia with rate of 54.[] Radiology/Procedures Radiology/Procedures [] Impressions: Chest x-ray demonstrates no acute process. Course & Med Decision Making Course & Med Decision Making Pertinent Labs and Imaging studies reviewed. (See chart for details) [] Dragon Disclaimer Dragon Disclaimer This electronic medical record was generated, in whole or in part, using a voice recognition dictation system. Departure Departure: Impression: Primary Impression: Dyspnea Disposition: 01 HOME, SELF-CARE Condition: STABLE Referrals: HCETAN ZARATE MD (PCP) Patient Instructions: Fatigue, Shortness of Breath Problem Qualifiers Primary Impression: Dyspnea Dyspnea type: unspecified Qualified Codes: R06.00 - Dyspnea, unspecified BABS CRAFT Jr. DO February 08, 2019 11:51
--- NOTE | 2019-02-08 11:52 | EKG ---
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
--- NOTE | 2019-02-08 14:21 | RAD ---
EXAM: Chest, single view. HISTORY: Dyspnea. COMPARISON: 01/18/2019 FINDINGS: A frontal view of the chest is obtained. There is suspected bilateral lower lobe atelectasis. There is no consolidation, pleural effusion or pneumothorax. The heart is normal in size. IMPRESSION: Suspected bilateral lower lobe atelectasis. Electronically signed by: Rica Jarquin MD (02/08/2019 2:19 PM) [id number]
== END 2019-02-08 13:08 | disposition home or self-care (01) ==
LOC: ER 10:20
DX: R06.00 Dyspnea, unspecified (principal); R07.89 Other chest pain; R22.43 Localized swelling, mass and lump, lower limb, bilateral; F41.9 Anxiety disorder, unspecified; J45.909 Unspecified asthma, uncomplicated; K21.9 Gastro-esophageal reflux disease without esophagitis; I10 Essential (primary) hypertension; Z86.718 Personal history of other venous thrombosis and embolism; Z87.440 Personal history of urinary (tract) infections; Z88.0 Allergy status to penicillin; Z88.1 Allergy status to other antibiotic agents; Z88.8 Allergy status to other drugs, medicaments and biological substances; Z88.6 Allergy status to analgesic agent
CPT/HCPCS: 36415; 71045; 80053; 83880; 84484; 85025; 93005; 99285

== ENCOUNTER 2019-03-20 09:35 | Emergency (ER) | payer MEDICARE, BC, OTHER ==
--- NOTE | 2019-03-20 09:55 | PHYS DOC ---
Past History Past Medical History: Anxiety, Asthma, DVT, GERD, Hypertension, UTI, Vascular Disease, Other Past Surgical History: Other Smoking: Non-smoker Alcohol Use: None Drug Use: None Adult General Chief Complaint Chief Complaint: DIZZY/LIGHT HEADED [facility] HPI Patient is a 64-year-old female presents with dizziness that began last night, lasted for approximately 5 minutes. She noticed it again this morning while she was laying in bed. There is both rotational and lightheaded components. She denies that anything makes it better or worse. It is self-limited. No worsening with change in head position or exertion. She also notes that she's had palpitations for the past 2 days but has a long history of these. Denies any chest pain or dyspnea on exertion. Patient is being treated with several toe for recent blood clots. Denies any new bleeding. Denies any fever. Symptoms are mild to moderate.[] Review of Systems Review of Systems Constitutional: Denies fever or chills [] Eyes: Denies change in visual acuity, redness, or eye pain [] HENT: Denies nasal congestion or sore throat [] Respiratory: Denies cough or shortness of breath [] Cardiovascular: No additional information not addressed in HPI [] GI: Denies abdominal pain, nausea, vomiting, bloody stools or diarrhea [] : Denies dysuria or hematuria [] Musculoskeletal: Denies back pain or joint pain [] Integument: Denies rash or skin lesions [] Neurologic: Denies headache, focal weakness or sensory changes [] Endocrine: Denies polyuria or polydipsia [] All other systems were reviewed and found to be within normal limits, except as documented in this note. Allergies Allergies Allergies Coded Allergies Type Severity Reaction Last Updated Verified penicillin G Allergy Severe Swell up/red. 11/04/18 Yes levofloxacin Allergy Intermediate 09/26/15 Yes aspirin Adverse Reaction Intermediate N/V 09/26/15 Yes enoxaparin sodium Adverse Reaction Intermediate Mouth swells. 09/26/15 Yes prochlorperazine edisylate Adverse Reaction Intermediate "I feel high" 09/26/15 Yes prochlorperazine maleate Adverse Reaction Intermediate 09/26/15 Yes Physical Exam Physical Exam Constitutional: Well developed, well nourished, no acute distress, non-toxic appearance. [] HENT: Normocephalic, atraumatic, bilateral external ears normal, oropharynx moist, no oral exudates, nose normal. [] Eyes: PERRLA, EOMI, conjunctiva normal, no discharge. [] Neck: Normal range of motion, no tenderness, supple, no stridor. [] Cardiovascular:Heart rate regular rhythm, no murmur [] Lungs & Thorax: Bilateral breath sounds clear to auscultation [] Abdomen: Bowel sounds normal, soft, no tenderness, no masses, no pulsatile masses. [] Skin: Warm, dry, no erythema, no rash. [] Back: No tenderness, no CVA tenderness. [] Extremities: No tenderness, no cyanosis, no clubbing, ROM intact, no edema. [] Neurologic: Alert and oriented X 3, normal motor function, normal sensory function, no focal deficits noted. Negative Hallpike test[] Psychologic: Affect normal, judgement normal, mood normal. [] EKG EKG EKG shows a sinus rhythm, 67 bpm, leftward axis of -10, prolonged QT see at 540 ms, no ST elevations. Compared with previous EKGs, this is the longest QTC these had with a being up to 470 ms. Otherwise no acute changes. Interpreted by [id number][] Radiology/Procedures Radiology/Procedures CT HEAD WO CONTRAST Indication: Dizziness. Exposure: One or more of the following individualized dose reduction techniques were utilized for this examination: 1. Automated exposure control 2. Adjustment of the mA and/or kV according to patient size 3. Use of iterative reconstruction technique. Technique: Standard imaging without intravenous contrast. Comparison: January 11, 2019 No evidence of acute intracranial hemorrhage, mass effect, midline shift or abnormal extra-axial fluid collection. Low-density in the white matter bilaterally, a nonspecific finding, but which is commonly due to chronic small vessel ischemic disease in a patient of this age. Generalized atrophy. Visualized orbits are symmetric. No substantial scalp swelling. Partially visualized sinuses are clear. No acute skull abnormality. IMPRESSION: Stable chronic findings. No evidence of acute intracranial hemorrhage or mass effect. Portable chest, 02/08/2019: HISTORY: Dizziness Comparison is made to a study from 01/18/2019. The heart size and pulmonary vascularity are normal. No pulmonary infiltrate is seen. There is no evidence of pleural fluid. IMPRESSION: No acute cardiopulmonary abnormality is detected. [] Course & Med Decision Making Course & Med Decision Making Pertinent Labs and Imaging studies reviewed. (See chart for details) ED course and medical decision making: Patient arrived, was placed in bed, and tolerated exam well. Patient to remain comfortable, working/playing/tech stating on her phone any time that she was observed in the room. She reports no significant improvement in her dizziness. Do not appreciate any significant vertigo symptoms. Do not appreciate sepsis despite the infected urine due to her indwelling urinary catheter. We will cover for the possibility of urinary tract infection. No evidence of dehydration. No evidence of a stroke syndrome nor acute coronary syndrome. Further discussion with the patient, she has anxiety issues given that her long-term home health aide is on vacation this week and she has not yet seen the new one.[] Dragon Disclaimer Dragon Disclaimer This electronic medical record was generated, in whole or in part, using a voice recognition dictation system. Departure Departure: Impression: Primary Impression: UTI (lower urinary tract infection) Additional Impression: dizziness Disposition: 01 HOME, SELF-CARE Condition: IMPROVED Referrals: CHETAN ZARATE MD (PCP) Follow-up in 2 days Patient Instructions: Dizziness, Chang Catheter Care, Adult, Urinary Tract Infection Additional Instructions: Drink plenty of fluids. Follow-up with your regular doctor in 2 days. Return to the ER if any concerns. Scripts Nitrofurantoin Monohyd/M-Cryst (MACROBID 100 MG CAPSULE) 100 Mg Capsule 1 CAP PO BID for uti, #20 CAP Prov: CATALINA FRANCISCO DO 03/20/19 Meclizine Hcl (MECLIZINE HCL) 25 Mg Tablet 1 TAB PO PRN TID for vertigo, #30 TAB Prov: CATALINA FRANCISCO DO 03/20/19 Problem Qualifiers CATALINA FRANCISCO DO Mar 20, 2019 09:55
[2019-03-20] MEDS ORDERED: MECLIZINE 12.5 MG TABLET. PO ONE (10:00)
[2019-03-20 10:19] LABS: BASO # 0.1 x10^3/uL (0.0-0.2); BASO % 1 % (0-3); EOS # 1.5 x10^3/uL (0.0-0.7); EOS % 17 % (0-3); HEMATOCRIT 38.1 % (36.0-47.0); HEMOGLOBIN 12.7 g/dL (12.0-15.5); LYMPH # 2.2 x10^3/uL (1.0-4.8); LYMPH % 26 % (24-48); MEAN CORPUSCULAR HEMOGLOBIN 31 pg (25-35); MEAN CORPUSCULAR HGB CONC 33 g/dL (31-37); MEAN CORPUSCULAR VOLUME 92 fL (79-100); MONO # 0.6 x10^3/uL (0.0-1.1); MONO % 7 % (0-9); NEUT # 4.1 x10^3uL (1.8-7.7); NEUT % 48 % (31-73); PLATELET COUNT 363 x10^3/uL (140-400); RED BLOOD COUNT 4.15 x10^6/uL (3.50-5.40); WHITE BLOOD COUNT 8.5 x10^3/uL (4.0-11.0)
--- NOTE | 2019-03-20 10:20 | EKG ---
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
[2019-03-20 10:36] LABS: ALBUMIN 3.4 g/dL (3.4-5.0); CALCIUM 9.1 mg/dL (8.5-10.1); CREATININE 0.9 mg/dL (0.6-1.0); GFR 63.2; MAGNESIUM 2.2 mg/dL (1.8-2.4); POTASSIUM 3.5 mmol/L (3.5-5.1); TOTAL BILIRUBIN 0.4 mg/dL (0.2-1.0); TOTAL PROTEIN 6.8 g/dL (6.4-8.2)
[2019-03-20 10:40] LABS: BACTERIA,URINE MANY /HPF (0-FEW); BILIRUBIN,URINE NEG (NEG); CLARITY,URINE TURBID; COLOR,URINE YELLOW; GLUCOSE,URINE NEG (NEG); NITRITE,URINE NEG (NEG); UROBILINOGEN,URINE 0.2 mg/dL (0.2 mg/dL); WBC,URINE 20-40 /HPF (0-4)
[2019-03-20 10:41] LABS: SQUAMOUS EPITHELIAL CELL,UR FEW /LPF
--- NOTE | 2019-03-20 10:56 | RAD ---
Portable chest, 02/08/2019: HISTORY: Dizziness Comparison is made to a study from 01/18/2019. The heart size and pulmonary vascularity are normal. No pulmonary infiltrate is seen. There is no evidence of pleural fluid. IMPRESSION: No acute cardiopulmonary abnormality is detected. Electronically signed by: Felipe Marx MD (03/20/2019 10:53 AM) [facility]
--- NOTE | 2019-03-20 12:54 | RAD ---
CT HEAD WO CONTRAST Indication: Dizziness. Exposure: One or more of the following individualized dose reduction techniques were utilized for this examination: 1. Automated exposure control 2. Adjustment of the mA and/or kV according to patient size 3. Use of iterative reconstruction technique. Technique: Standard imaging without intravenous contrast. Comparison: January 11, 2019 No evidence of acute intracranial hemorrhage, mass effect, midline shift or abnormal extra-axial fluid collection. Low-density in the white matter bilaterally, a nonspecific finding, but which is commonly due to chronic small vessel ischemic disease in a patient of this age. Generalized atrophy. Visualized orbits are symmetric. No substantial scalp swelling. Partially visualized sinuses are clear. No acute skull abnormality. IMPRESSION: Stable chronic findings. No evidence of acute intracranial hemorrhage or mass effect. Electronically signed by: Fuad Davis MD (03/20/2019 12:51 PM) [id number]
[2019-03-20] MEDS ORDERED: NITR100C62 PO (13:12)
[2019-03-20] MEDS ORDERED: MECL25TA3 PO (13:12)
[2019-03-20 13:22] VITALS: BP 170/100
== END 2019-03-20 13:22 | disposition home or self-care (01) ==
LOC: ER 09:35
DX: N39.0 Urinary tract infection, site not specified (principal); R42 Dizziness and giddiness; F41.9 Anxiety disorder, unspecified; J45.909 Unspecified asthma, uncomplicated; K21.9 Gastro-esophageal reflux disease without esophagitis; I10 Essential (primary) hypertension; Z87.440 Personal history of urinary (tract) infections; Z86.718 Personal history of other venous thrombosis and embolism; Z88.0 Allergy status to penicillin; Z88.1 Allergy status to other antibiotic agents; Z88.6 Allergy status to analgesic agent; Z88.8 Allergy status to other drugs, medicaments and biological substances
CPT/HCPCS: 36415; 70450; 71045; 80053; 81001; 83735; 83880; 84484; 85025; 85610; 85730; 87086; 93005; 99285; J8597

== ENCOUNTER 2019-07-02 10:25 | Emergency (ER) | payer MEDICARE, BC, OTHER ==
[~2019-07-02] VITALS: Ht 137.2 cm; Wt 65.3 kg
[~2019-07-02 10:25] MED LIST changes: -ECON15CR TP; +ECON15CR10 TP; +LISI1TAB20 PO; -LISI1TAB7 PO; +MECL25TA3 PO; +NITR100C62 PO; -OXYB10TA PO; +OXYB10TA2 PO
--- NOTE | 2019-07-02 10:37 | PHYS DOC ---
Past History Past Medical History: DVT, GERD, Hypertension, UTI, Other Additional Past Medical Histor: multiple sclerosis, pulmonary embolism Past Surgical History: Other Smoking: Non-smoker Alcohol Use: None Drug Use: None Adult General Chief Complaint Chief Complaint: DIZZY/LIGHT HEADED HPI HPI Patient is a 64-year-old female presents complaining of feeling lightheaded when going from lying down to sitting. Patient does not walk much due to her MS and weakness in her lower extremities. She denies any fever. Denies any head trauma. She reports running out of her metoprolol yesterday and attributes the dizziness to this. She denies any chest pain or palpitations. Denies any focal weakness that is new. Symptoms are mild to moderate. No vertiginous component.[] Review of Systems Review of Systems Constitutional: Denies fever or chills [] Eyes: Denies change in visual acuity, redness, or eye pain [] HENT: Denies nasal congestion or sore throat [] Respiratory: Denies cough or shortness of breath [] Cardiovascular: No chest pain or palpitations[] GI: Denies abdominal pain, nausea, vomiting, bloody stools or diarrhea [] : Denies dysuria or hematuria [] Musculoskeletal: Denies back pain or joint pain [] Integument: Denies rash or skin lesions [] Neurologic: Denies headache, focal weakness or sensory changes that are new. See history of present illness [] Endocrine: Denies polyuria or polydipsia [] All other systems were reviewed and found to be within normal limits, except as documented in this note. Allergies Allergies Allergies Coded Allergies Type Severity Reaction Last Updated Verified penicillin G Allergy Severe Swell up/red. 11/04/18 Yes levofloxacin Allergy Intermediate 09/26/15 Yes aspirin Adverse Reaction Intermediate N/V 09/26/15 Yes enoxaparin sodium Adverse Reaction Intermediate Mouth swells. 09/26/15 Yes prochlorperazine edisylate Adverse Reaction Intermediate "I feel high" 09/26/15 Yes prochlorperazine maleate Adverse Reaction Intermediate 09/26/15 Yes Physical Exam Physical Exam Constitutional: Well developed, well nourished, no acute distress, non-toxic appearance. [] HENT: Normocephalic, atraumatic, bilateral external ears normal, oropharynx moist, no oral exudates, nose normal. [] Eyes: PERRLA, EOMI, conjunctiva normal, no discharge. [] Neck: Normal range of motion, no tenderness, supple, no stridor. [] Cardiovascular:Heart rate regular rhythm, no murmur [] Lungs & Thorax: Bilateral breath sounds clear to auscultation [] Abdomen: Bowel sounds normal, soft, no tenderness, no masses, no pulsatile masses. [] Skin: Warm, dry, no erythema, no rash. [] Back: No tenderness, no CVA tenderness. [] Extremities: No tenderness, no cyanosis, no clubbing, ROM intact, no edema. [] Neurologic: Alert and oriented X 3, normal motor function, normal sensory function, no focal deficits noted. [] Psychologic: Affect normal, judgement normal, mood normal. [] Current Patient Data Vital Signs Vital Signs Date Time Temp Pulse Resp B/P (MAP) Pulse Ox O2 Delivery O2 Flow Rate FiO2 07/02/19 10:30 98.3 93 18 97 Room Air EKG EKG EKG shows a sinus rhythm at 72 bpm, left axis, QTC of 440 ms, no ST elevation. Interpreted by me at 11:15.[] Radiology/Procedures Radiology/Procedures PROCEDURE: PORTABLE CHEST 1V Exam performed: One view chest. Indication: Dizziness Date of Service: 07/02/2019 10:32 AM Comparison: One view chest from 03/20/2019. Single AP upright portable view chest findings: Cardiomediastinal silhouette is within limits of normal. No acute infiltrates, effusion or pneumothorax is detected. The bony structures are normal. Impression: No acute cardiopulmonary process is detected. [] Course & Med Decision Making Course & Med Decision Making Pertinent Labs and Imaging studies reviewed. (See chart for details) ED course: Patient arrived, was placed in bed, and tolerated exam well. She was given her metoprolol that she has missed for the past couple of doses. She reported feeling much better after this. Findings were discussed with the patient who voiced understanding. All questions were answered. She was discharged in improved condition. Medical decision making: Patient with dizziness which may be related to her blood pressure and metoprolol. There is no evidence of an acute coronary syndrome. No evidence of a significant electrolyte abnormality, pneumonia, rhythm disturbance, congestive heart failure, nor other acute life-threatening condition.[] Dragon Disclaimer Dragon Disclaimer This electronic medical record was generated, in whole or in part, using a voice recognition dictation system. Departure Departure: Impression: Primary Impression: dizziness Disposition: 01 HOME, SELF-CARE Condition: IMPROVED Referrals: CHETAN ZARATE MD (PCP) Follow-up in 2 days Patient Instructions: Dizziness Additional Instructions: Follow-up with your regular doctor in 2 days. Take your medication as prescribed. Return to the ER if worsening dizziness, chest pain, difficulty breathing, or any other concerns. Scripts Metoprolol Tartrate (METOPROLOL TARTRATE) 25 Mg Tablet 25 MG PO BID for FOR HYPERTENSIONAND DIZZINESS, #30 TAB 0 Refills Prov: CATALINA FRANCISCO DO 07/02/19 CATALINA FRANCISCO DO Jul 02, 2019 10:37
[2019-07-02] MEDS ORDERED: METOPROLOL TART IMMED RELEASE 25 MG TABLET PO ONE (11:00)
--- NOTE | 2019-07-02 11:10 | RAD ---
Exam performed: One view chest. Indication: Dizziness Date of Service: 07/02/2019 10:32 AM Comparison: One view chest from 03/20/2019. Single AP upright portable view chest findings: Cardiomediastinal silhouette is within limits of normal. No acute infiltrates, effusion or pneumothorax is detected. The bony structures are normal. Impression: No acute cardiopulmonary process is detected. Electronically signed by: Concepción Ga MD (07/02/2019 11:08 AM) [facility]
[2019-07-02 11:12] VITALS: BP 167/91
--- NOTE | 2019-07-02 11:32 | EKG ---
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
[2019-07-02 11:53] LABS: BACTERIA,URINE MOD /HPF (0-FEW); BILIRUBIN,URINE NEG (NEG); CLARITY,URINE CLOUDY; COLOR,URINE STRAW; GLUCOSE,URINE NEG (NEG); NITRITE,URINE POS (NEG); SQUAMOUS EPITHELIAL CELL,UR FEW /LPF; UROBILINOGEN,URINE 0.2 mg/dL (0.2 mg/dL)
[2019-07-02 11:55] LABS: BASO # 0.1 x10^3/uL (0.0-0.2); BASO % 1 % (0-3); EOS # 0.1 x10^3/uL (0.0-0.7); EOS % 2 % (0-3); HEMATOCRIT 39.1 % (36.0-47.0); HEMOGLOBIN 13.3 g/dL (12.0-15.5); LYMPH # 1.4 x10^3/uL (1.0-4.8); LYMPH % 26 % (24-48); MEAN CORPUSCULAR HEMOGLOBIN 30 pg (25-35); MEAN CORPUSCULAR HGB CONC 34 g/dL (31-37); MEAN CORPUSCULAR VOLUME 88 fL (79-100); MONO # 0.5 x10^3/uL (0.0-1.1); MONO % 9 % (0-9); NEUT # 3.4 x10^3uL (1.8-7.7); NEUT % 62 % (31-73); PLATELET COUNT 339 x10^3/uL (140-400); RED BLOOD COUNT 4.47 x10^6/uL (3.50-5.40); RED CELL DISTRIBUTION WIDTH 14.2 % (11.5-14.5); WHITE BLOOD COUNT 5.4 x10^3/uL (4.0-11.0)
[2019-07-02 12:05] LABS: ALBUMIN 3.9 g/dL (3.4-5.0); ALBUMIN/GLOBULIN RATIO 1.1 (1.0-1.7); CALCIUM 9.1 mg/dL (8.5-10.1); CREATININE 0.8 mg/dL (0.6-1.0); GFR 72.4; MAGNESIUM 2.3 mg/dL (1.8-2.4); TOTAL BILIRUBIN 0.3 mg/dL (0.2-1.0); TOTAL PROTEIN 7.3 g/dL (6.4-8.2)
[2019-07-02] MEDS ORDERED: METO25TA4 PO (13:29)
== END 2019-07-02 13:37 | disposition home or self-care (01) ==
LOC: ER 10:25
DX: R42 Dizziness and giddiness (principal); R53.1 Weakness; K21.9 Gastro-esophageal reflux disease without esophagitis; I10 Essential (primary) hypertension; Z86.718 Personal history of other venous thrombosis and embolism; Z87.440 Personal history of urinary (tract) infections; Z86.711 Personal history of pulmonary embolism; Z88.0 Allergy status to penicillin; Z88.1 Allergy status to other antibiotic agents; Z88.6 Allergy status to analgesic agent; Z88.8 Allergy status to other drugs, medicaments and biological substances
CPT/HCPCS: 36415; 71045; 80053; 81001; 83690; 83735; 83880; 84443; 84484; 85025; 85610; 85730; 87086; 93005; 99285-25

== ENCOUNTER 2021-10-12 10:17 | Emergency (ER) | payer MEDICARE, BC, OTHER ==
[~2021-10-12] VITALS: Ht 137.2 cm; Wt 61.0 kg
[2021-10-12 10:17] VITALS: BP 143/62
[~2021-10-12 10:17] MED LIST changes: +CLIN-95 PO; -CLIN300C8 PO; -ECON15CR10 TP; +ECON15CR8 TP; -LISI1TAB20 PO; +LISI1TAB39 PO; +MECL-75 PO; -MECL25TA3 PO; -OXYB10TA2 PO; +OXYB10TA26 PO; +OXYB5TAB10 PO; -OXYB5TAB7 PO
[2021-10-12] MEDS ORDERED: IV NORMAL SALINE 1,000ML 1,000 ML IV ONE (10:45)
--- NOTE | 2021-10-12 10:47 | PHYS DOC ---
Past History Past Medical History: DVT, GERD, Hypertension, UTI, Other Additional Past Medical Histor: multiple sclerosis, pulmonary embolism Past Surgical History: Other Smoking: Non-smoker Alcohol Use: None Drug Use: None General Adult EDM: Chief Complaint: BLOOD IN URINE HPI: HPI: Patient is a 66-year-old female who presents with blood in her urine. Patient has had a Chang catheter for the past 10 years due to her MS diagnosis. Patient states it was changed on Wednesday night. Patient was told she had an infection in her urine and was started on Bactrim. Patient noticed blood in her catheter bag last night. Patient has home health that comes and visits and today when they noticed the blood they sent her to the ER by ambulance. Patient denies pain. Denies fever or recent illness. Patient is currently on Xarelto from a PE 2 years ago. Patient has history of hypertension, MS, GERD, PE, chronic UTIs. Review of Systems: Review of Systems: Constitutional: Denies fever or chills Eyes: Denies change in visual acuity HENT: Denies nasal congestion or sore throat Respiratory: Denies cough or shortness of breath Cardiovascular: Denies chest pain or edema GI: Denies abdominal pain, nausea, vomiting, bloody stools or diarrhea : Denies dysuria Musculoskeletal: Denies back pain or joint pain Integument: Denies rash Neurologic: Denies headache, focal weakness or sensory changes Endocrine: Denies polyuria or polydipsia Lymphatic: Denies swollen glands Psychiatric: Denies depression or anxiety Allergies: Allergies: Allergies Coded Allergies Type Severity Reaction Last Updated Verified penicillin G Allergy Severe Swell up/red. 11/04/18 Yes levofloxacin Allergy Intermediate 09/26/15 Yes aspirin Adverse Reaction Intermediate N/V 09/26/15 Yes enoxaparin sodium Adverse Reaction Intermediate Mouth swells. 09/26/15 Yes prochlorperazine edisylate Adverse Reaction Intermediate "I feel high" 09/26/15 Yes prochlorperazine maleate Adverse Reaction Intermediate 09/26/15 Yes Physical Exam: PE: Constitutional: Well developed, well nourished, no acute distress, non-toxic appearance. [] HENT: Normocephalic, atraumatic, bilateral external ears normal, oropharynx moist, no oral exudates, nose normal. [] Eyes: PERRLA, EOMI, conjunctiva normal, no discharge. [] Neck: Normal range of motion, no tenderness, supple, no stridor. [] Cardiovascular:Heart rate regular rhythm, no murmur [] Lungs & Thorax: Bilateral breath sounds clear to auscultation [] Abdomen: Bowel sounds normal, soft, no tenderness, no masses, no pulsatile masses. Light red blood in catheter bag. No clots noted. Skin: Warm, dry, no erythema, no rash. [] Back: No tenderness, no CVA tenderness. [] Extremities: No tenderness, no cyanosis, no clubbing, ROM intact, no edema. [] Neurologic: Alert and oriented X 3, normal motor function, normal sensory function, no focal deficits noted. [] Psychologic: Affect normal, judgement normal, mood normal. [] Current Patient Data: Vital Signs: Vital Signs Date Time Temp Pulse Resp B/P (MAP) Pulse Ox O2 Delivery O2 Flow Rate FiO2 10/12/21 10:17 97.7 110 20 143/62 (89) 93 Room Air EKG: EKG: [] Radiology/Procedures: Radiology/Procedures: []EXAMINATION: CT abdomen and pelvis without IV contrast. INDICATION:66 years, Female, hematuria. TECHNIQUE: Axial CT images of the abdomen and pelvis were obtained. Coronal and sagittal reformatted performed. COMPARISON: None. Exposure: One or more of the following individualized dose reduction techniques were utilized for this examination: 1. Automated exposure control 2. Adjustment of the mA and/or kV according to patient size 3. Use of iterative reconstruction technique. FINDINGS: LOWER CHEST: Left basilar subsegmental atelectasis. ABDOMEN/PELVIS: Within limitation of noncontrast exam, Mild bilateral hydroureteronephrosis with diffuse urothelial thickening of the renal pelvises and ureters with periureteric fat stranding. No obstructing ureteral calculi. There is a 4 mm nonobstructing calculus in the lower pole left kidney. Multifocal bilateral cortical scarring/thinning. Urinary bladder is decompressed with Chang's catheter in place. There are 2 large stones in the urinary bladder, the largest measures 1.8 cm. Minimal perivesical ankle fat stranding. Diffuse hepatic steatosis. Multiple calcified cholelithiasis without acute cholecystitis. No biliary ductal dilation. Unremarkable spleen. Severely atrophic pancreatic parenchyma. No adrenal nodule. Moderate size hiatal hernia. No bowel obstruction. Appendix is not visualized. Normal caliber abdominal aorta. No pneumoperitoneum or ascites. No lymphadenopathy in the abdomen or pelvis by size criteria. Unremarkable uterus. No suspicious pelvic masses. MUSCULOSKELETAL STRUCTURES: No acute process process. Multilevel degenerative changes in the spine. Small fat-containing umbilical and bilateral inguinal hernias. IMPRESSION: 1. Mild bilateral hydroureteronephrosis to the level of ureterovesical junctions, with diffuse urothelial thickening of the renal pelvises and ureters with periureteric fat stranding. No obstructing ureteral calculi. Correlate for urinary tract infection. 2. Decompressed urinary bladder with Foleys catheter in place. There are 2 large stones in the urinary bladder measuring up to 1.8 cm. 3. Punctate nonobstructing left nephrolithiasis. 4. Diffuse hepatic steatosis. 5. Cholelithiasis. 6. Moderate size hiatal hernia. Electronically signed by: Carlos Medina MD (10/12/2021 11:40 AM) [id number] Heart Score: C/O Chest Pain: No Risk Factors: Risk Factors: DM, Current or recent (<one month) smoker, HTN, HLP, family history of CAD, obesity. Risk Scores: Score 0 - 3: 2.5% MACE over next 6 weeks - Discharge Home Score 4 - 6: 20.3% MACE over next 6 weeks - Admit for Clinical Observation Score 7 - 10: 72.7% MACE over next 6 weeks - Early Invasive Strategies Course & Med Decision Making: Course & Med Decision Making Pertinent Labs and Imaging studies reviewed. (See chart for details) [] 66-year-old female who presents with hematuria. Patient has a Chang catheter and had it changed on Wednesday. Noticed light red blood in her catheter bag today. Patient is currently taking Bactrim to treat a urinary tract infection. Work-up in ER consisted of CBC, BMP, CT abdomen and pelvis, UA. Patient's cause of hematuria is most likely due to trauma from placing a new catheter on with urinary tract infection. Patient currently takes Xarelto for a PE she had 2 years ago. Patient given NS bolus. Heart rate was slightly elevated in the 1 teens. Patient does have MS and is bedbound. CT abdomen pelvis shows bilateral hydroureteronephrosis. Patient is currently taking Bactrim for UTI. Nonobstructing stones found in the bladder. WBC, 13.1. Creatinine 2.0. Patient given NS bolus for hydration. Discussed results with patient. Advised patient she needs to follow-up with with her PCP. Advised patient to continue taking Bactrim as directed. Discussed return precautions. Patient verbalizes understanding of discharge instructions. Sienna Disclaimer: Sienna Disclaimer: This electronic medical record was generated, in whole or in part, using a voice recognition dictation system. Departure Departure: Impression: Primary Impression: Hydroureteronephrosis Disposition: HOME / SELF CARE / HOMELESS Condition: STABLE Referrals: CHETAN ZARATE MD (PCP) Additional Instructions: You were seen in the emergency room for blood in your catheter bag. You are currently being treated with Bactrim for a UTI. CT of your abdomen pelvis showed bilateral hydroureteronephrosis. Please continue Bactrim. Make sure you are taking the antibiotic in full and as directed. Return to the emergency room if you have an increase in pain and/or bleeding, unable to urinate, fevers. Otherwise make a follow-up appointment with your PCP. EMERGENCY DEPARTMENT GENERAL DISCHARGE INSTRUCTIONS Thank you for coming to [facility] (ED) today and trusting us with you care. We trust that you had a positivie experience in our Emergency Department. If you wish to speak to the department management, you may call the director at [phone]. YOUR FOLLOW UP INSTRUCTIONS ARE FOLLOWS: 1. Do you have a private Doctor? If you do not have a private doctor, please ask for a resource list of physicians or clinics that may be able to assist you with follow up care. 2. The Emergency Physician has interpreted your x-rays. The X-Ray specialist will also review them. If there is a change in the findings, you will be notified in 48 hours when at all possible. 3. A lab test or culture has been done, your results will be reviewed and you will be notified if you need a change in treatment. ADDITIONAL INSTRUCTIONS AND INFORMATION: 1. Your care today has been supervised by a physician who is specially trained in emergency care. Many problems require more than one evaluation for a complete diagnosis and treatment. We recommend that you schedule your follow up appointment as recommended to ensure complete treatment of you illness or injury. If you are unable to obtain follow up care and continue to have a problem, or if your condition worsens, we recommend that you return to the ED. 2. We are not able to safely determine your condition over the phone nor are we able to give sound medical advice over the phone. For these safety reasons, if you call for medical advice we will ask you to come to the ED for further evaluation. 3. If you have any questions regarding these discharge instructions please call the ED at [phone]. SAFETY INFORMATION: In the interest of safety, wellness, and injury prevention; we encourage you to wear your sealbelt, if you smoke; quite smoking, and we encourage family to use a protective helmet for bicycling and other sporting events that present an increased risk for head injury. IF YOUR SYMPTOMS WORSEN OR NEW SYMPTOMS DEVELOP, OR YOU HAVE CONCERNS ABOUT YOUR CONDITION; OR IF YOUR CONDITION WORSENS WHILE YOU ARE WAITING FOR YOUR FOLLOW UP APPOINTMENT; EITHER CONTACT YOUR PRIMARY CARE DOCTOR, THE PHYSICIAN WHOSE NAME AND NUMBER YOU WERE GIVEN, OR RETURN TO THE ED IMMEDIATELY. AMINA CERVANTES APRN Oct 12, 2021 10:47
[2021-10-12 10:57] LABS: CLARITY,URINE BLOODY; COLOR,URINE RED
[2021-10-12 10:58] LABS: BACTERIA,URINE 0 /HPF (0-FEW); RBC,URINE TNTC /HPF (0-2); SQUAMOUS EPITHELIAL CELL,UR FEW /LPF; WBC,URINE TNTC /HPF (0-4)
[2021-10-12 11:34] LABS: BASO # 0.1 x10^3/uL (0.0-0.2); BASO % 1 % (0-3); EOS % 0 % (0-3); HEMATOCRIT 39.8 % (36.0-47.0); LYMPH # 1.5 x10^3/uL (1.0-4.8); LYMPH % 12 % (24-48); MEAN CORPUSCULAR HEMOGLOBIN 28 pg (25-35); MEAN CORPUSCULAR HGB CONC 33 g/dL (31-37); MEAN CORPUSCULAR VOLUME 85 fL (79-100); MONO # 0.9 x10^3/uL (0.0-1.1); MONO % 7 % (0-9); NEUT # 10.4 x10^3uL (1.8-7.7); NEUT % 81 % (31-73); PLATELET COUNT 448 x10^3/uL (140-400); RED BLOOD COUNT 4.68 x10^6/uL (3.50-5.40); RED CELL DISTRIBUTION WIDTH 14.8 % (11.5-14.5)
--- NOTE | 2021-10-12 11:43 | RAD ---
EXAMINATION: CT abdomen and pelvis without IV contrast. INDICATION:66 years, Female, hematuria. TECHNIQUE: Axial CT images of the abdomen and pelvis were obtained. Coronal and sagittal reformatted performed. COMPARISON: None. Exposure: One or more of the following individualized dose reduction techniques were utilized for thi s examination: 1. Automated exposure control 2. Adjustment of the mA and/or kV according to patient size 3. Use of iterative reconstruction technique. FINDINGS: LOWER CHEST: Left basilar subsegmental atelectasis. ABDOMEN/PELVIS: Within limitation of noncontrast exam, Mild bilateral hydroureteronephrosis with diffuse urothelial thickening of the renal pelvises and ure ters with periureteric fat stranding. No obstructing ureteral calculi. There is a 4 mm nonobstructing calculus in the lower pole left kidney. Multifocal bilateral cortical scarring/thinning. Urinary maria del carmen dder is decompressed with Chang's catheter in place. There are 2 large stones in the urinary bladder, the largest measures 1.8 cm. Minimal perivesical ankle fat stranding. Diffuse hepatic steatosis. Multiple calcified cholelithiasis without acute cholecystitis. No biliary ductal dilation. Unremarkable spleen. Severely atrophic pancreatic parenchyma. No adrenal nodule. Mod erate size hiatal hernia. No bowel obstruction. Appendix is not visualized. Normal caliber abdominal aorta. No pneumoperitoneum or ascites. No lymphadenopathy in the abdomen or pelvis by size criteria. Unremarkable uterus. No suspicious pelvic masses. MUSCULOSKELETAL STRUCTURES: No acute process process. Multilevel degenerative changes in the spine. Small fat-containing umbilica l and bilateral inguinal hernias. IMPRESSION: 1. Mild bilateral hydroureteronephrosis to the level of ureterovesical junctions, with diffuse uroth elial thickening of the renal pelvises and ureters with periureteric fat stranding. No obstructing ur eteral calculi. Correlate for urinary tract infection. 2. Decompressed urinary bladder with Foleys catheter in place. There are 2 large stones in the urina ry bladder measuring up to 1.8 cm. 3. Punctate nonobstructing left nephrolithiasis. 4. Diffuse hepatic steatosis. 5. Cholelithiasis. 6. Moderate size hiatal hernia. Electronically signed by: Carlos Medina MD (10/12/2021 11:40 AM) [id number]
[2021-10-12 11:45] LABS: CALCIUM 8.7 mg/dL (8.5-10.1); POTASSIUM 5.1 mmol/L (3.5-5.1)
== END 2021-10-12 13:10 | disposition home or self-care (01) ==
LOC: ER 10:17
DX: N13.30 Unspecified hydronephrosis (principal); K21.9 Gastro-esophageal reflux disease without esophagitis; I10 Essential (primary) hypertension; Z87.440 Personal history of urinary (tract) infections; Z86.718 Personal history of other venous thrombosis and embolism; Z79.01 Long term (current) use of anticoagulants; Z86.711 Personal history of pulmonary embolism; Z88.0 Allergy status to penicillin; Z88.1 Allergy status to other antibiotic agents; Z88.6 Allergy status to analgesic agent; Z88.8 Allergy status to other drugs, medicaments and biological substances
CPT/HCPCS: 36415; 74176; 80048; 81001; 85025; 87086; 96360; 96361; 99284; J7030

== ENCOUNTER 2021-10-13 18:20 | Emergency (ER) | payer MEDICARE, BC, OTHER ==
[~2021-10-13] VITALS: Ht 137.2 cm; Wt 61.0 kg
--- NOTE | 2021-10-13 21:50 | PHYS DOC ---
Past History Past Medical History: DVT, GERD, Hypertension, UTI, Other Additional Past Medical Histor: multiple sclerosis, pulmonary embolism, BLADDER SPASMS (MATT ALMAZAN APRN) Past Surgical History: Other Additional Past Surgical Histo: SPINAL SURGERY (MATT ALMAZAN APRN) Smoking: Non-smoker Alcohol Use: None Drug Use: None (MATT ALMAZAN APRN) General Adult EDM: Chief Complaint: BLOOD IN URINE HPI: HPI: Patient is a 66-year-old female that presents today with blood in her Chang catheter. Patient states the blood in her catheter has been ongoing since October 10, she was seen in the emergency department on October 12, [address] scan and laboratory results, she was told to follow-up with her primary care physician, she said that her home health nurse did call her primary care and her primary care informed her to come back to the emergency department. Patient states that she had the Chang catheter replaced on October 10 by her home health nurse, she was also placed on antibiotics of Bactrim at that time for urinary tract infection. Patient is here today for further management of the blood in her catheter, when asked about urology care in the past she states that she saw a urologist here in town and she said that they were not very nice and they were very impersonal when dealing with her and she does not like going there. Patient is on Xarelto for PE and DVT management chronically (MATT ALMAZAN APRN) Review of Systems: Review of Systems: Constitutional: Denies fever or chills Eyes: Denies change in visual acuity HENT: Denies nasal congestion or sore throat Respiratory: Denies cough or shortness of breath Cardiovascular: Denies chest pain or edema GI: Denies abdominal pain, nausea, vomiting, bloody stools or diarrhea : Hematuria Musculoskeletal: Denies back pain or joint pain Integument: Denies rash Neurologic: Denies headache, focal weakness or sensory changes Endocrine: Denies polyuria or polydipsia Lymphatic: Denies swollen glands Psychiatric: Denies depression or anxiety (MATT ALMAZAN APRN) Allergies: Allergies: Allergies Coded Allergies Type Severity Reaction Last Updated Verified penicillin G Allergy Severe Swell up/red. 11/04/18 Yes levofloxacin Allergy Intermediate 09/26/15 Yes aspirin Adverse Reaction Intermediate N/V 09/26/15 Yes enoxaparin sodium Adverse Reaction Intermediate Mouth swells. 09/26/15 Yes prochlorperazine edisylate Adverse Reaction Intermediate "I feel high" 09/26/15 Yes prochlorperazine maleate Adverse Reaction Intermediate 09/26/15 Yes (MATT ALMAZAN APRN) Physical Exam: PE: Constitutional: Well developed, well nourished, no acute distress, non-toxic appearance. [] HENT: Normocephalic, atraumatic, bilateral external ears normal, oropharynx mois t, no oral exudates, nose normal. [] Eyes: PERRLA, EOMI, conjunctiva normal, no discharge. [] Neck: Normal range of motion, no tenderness, supple, no stridor. [] Cardiovascular:Heart rate regular rhythm, no murmur [] Lungs & Thorax: Bilateral breath sounds clear to auscultation [] Abdomen: Lower abdomen pain with palpation. Chang catheter is in place with duglas blood noted in the catheter bag. [] Skin: Warm, dry, no erythema, no rash. [] Back: No tenderness, no CVA tenderness. [] Extremities: No tenderness, no cyanosis, no clubbing, ROM intact, no edema. [] Neurologic: Alert and oriented X 3, normal motor function, normal sensory function, no focal deficits noted. [] Psychologic: Affect normal, judgement normal, mood normal. [] (MATT ALMAAZN APRN) Current Patient Data: Labs: Laboratory Tests Test 10/13/21 22:35 White Blood Count 10.5 x10^3/uL Red Blood Count 4.11 x10^6/uL Hemoglobin 11.8 g/dL Hematocrit 35.2 % Mean Corpuscular Volume 86 fL Mean Corpuscular Hemoglobin 29 pg Mean Corpuscular Hemoglobin Concent 34 g/dL Red Cell Distribution Width 15.1 % Platelet Count 479 x10^3/uL Neutrophils (%) (Auto) 64 % Lymphocytes (%) (Auto) 25 % Monocytes (%) (Auto) 7 % Eosinophils (%) (Auto) 3 % Basophils (%) (Auto) 1 % Neutrophils # (Auto) 6.7 x10^3uL Lymphocytes # (Auto) 2.6 x10^3/uL Monocytes # (Auto) 0.8 x10^3/uL Eosinophils # (Auto) 0.3 x10^3/uL Basophils # (Auto) 0.1 x10^3/uL Vital Signs: Vital Signs Date Time Temp Pulse Resp B/P (MAP) Pulse Ox O2 Delivery O2 Flow Rate FiO2 10/13/21 21:10 98.6 68 20 98/53 (68) 97 Room Air (MATT ALMAZAN APRN) EKG: EKG: [] (MATT ALMAZAN APRN) Radiology/Procedures: Radiology/Procedures: [] (MATT ALMAZAN APRN) Heart Score: C/O Chest Pain: N/A Risk Factors: Risk Factors: DM, Current or recent (<one month) smoker, HTN, HLP, family history of CAD, obesity. Risk Scores: Score 0 - 3: 2.5% MACE over next 6 weeks - Discharge Home Score 4 - 6: 20.3% MACE over next 6 weeks - Admit for Clinical Observation Score 7 - 10: 72.7% MACE over next 6 weeks - Early Invasive Strategies (MATT ALMAZAN APRN) Course & Med Decision Making: Course & Med Decision Making Pertinent Labs and Imaging studies reviewed. (See chart for details) 2310 did review patient's hemoglobin from today which is 11.8 yesterday his hemoglobin was 13.0, will have patient follow-up with her primary care physician tomorrow by phone to discuss whether she should continue with her anticoagulation therapy. Patient needs to follow-up tomorrow with her primary care to discuss blood in urine and also for urology referral. Spoke to family and patient they are agreeable with following up with her primary care physician in the a.m. for decision on continuing with anticoagulation therapy. (MATT ALMAZAN APRN) Dragon Disclaimer: Dragon Disclaimer: This electronic medical record was generated, in whole or in part, using a voice recognition dictation system. (MATT ALMAZAN APRN) Attending Co-Sign The patient was seen and interviewed as well as examined at the bedside. The chart was reviewed. The case was discussed. Agree with the plan of care. (RACHEAL SANCHEZ DO) Departure Departure: Impression: Primary Impression: Hematuria, gross Disposition: HOME / SELF CARE / HOMELESS Condition: STABLE Referrals: CHETAN ZARATE MD (PCP) Patient Instructions: Chang Catheter Care, Adult, Hematuria, Adult Additional Instructions: Follow-up with your primary care physician in the morning before taking her ant icoagulation therapy. Increase by mouth fluids to stay well-hydrated Continue to take your Bactrim as directed twice daily. MATT ALMAZAN APRN Oct 13, 2021 21:50 RACHEAL SANCHEZ DO Oct 15, 2021 14:12
[2021-10-13 21:51] VITALS: BP 120/78
== END 2021-10-13 23:33 | disposition home or self-care (01) ==
LOC: ER 18:20
DX: R31.0 Gross hematuria (principal); K21.9 Gastro-esophageal reflux disease without esophagitis; I10 Essential (primary) hypertension; Z87.440 Personal history of urinary (tract) infections; Z86.718 Personal history of other venous thrombosis and embolism; Z86.711 Personal history of pulmonary embolism; Z79.01 Long term (current) use of anticoagulants; Z88.0 Allergy status to penicillin; Z88.1 Allergy status to other antibiotic agents; Z88.6 Allergy status to analgesic agent; Z88.8 Allergy status to other drugs, medicaments and biological substances
CPT/HCPCS: 36415; 85025; 99282; 99283

== ENCOUNTER 2021-12-19 10:44 | Emergency (ER) | payer MEDICARE, BC, OTHER ==
[~2021-12-19] VITALS: Ht 137.2 cm; Wt 58.4 kg
[~2021-12-19 10:44] MED LIST changes: +DIPH25CA58 PO; +LISI20TA18 PO; +OMEP20CA16 PO
--- NOTE | 2021-12-19 12:01 | PHYS DOC ---
Past History Past Medical History: DVT, GERD, Hypertension, UTI, Other Additional Past Medical Histor: multiple sclerosis, pulmonary embolism, BLADDER SPASMS Past Surgical History: Other Additional Past Surgical Histo: SPINAL SURGERY Smoking: Non-smoker Alcohol Use: None Drug Use: None General Adult EDM: Chief Complaint: VAGINAL PROBLEM HPI: HPI: Patient is a 66-year-old female that presents today via [facility] for labial laceration concerns. The report we got from EMS is that the home health nurse had removed her previous Chang catheter, and was attempting to place another Chang catheter and noted that she had a possible laceration to her left labial area, and was concerned that there is something else wrong. Patient does have a history of multiple sclerosis and is wheelchair-bound, she also lives alone, she has an indwelling Chang catheter due to a neurogenic bladder issue that she has, also noted was that she was diagnosed and treated for a UTI recently, her cephalexin ended on December 13, 2021. Patient has a lengthy past medical history including PE, multiple sclerosis, asthma, and chronic pain issues. Patient was admitted in November 2021 and it was recommended at that time that she seek out a group home facility to help her with her daily activities of living and she at this time declined to that instead she wanted to go home. Review of Systems: Review of Systems: Constitutional: Denies fever or chills Eyes: Denies change in visual acuity HENT: Denies nasal congestion or sore throat Respiratory: Denies cough or shortness of breath Cardiovascular: Denies chest pain or edema GI: Lower abdominal pain denies nausea, vomiting, bloody stools or diarrhea /back tufter: Labial injury Musculoskeletal: Denies back pain or joint pain Integument: Denies rash Neurologic: Denies headache, focal weakness or sensory changes Endocrine: Denies polyuria or polydipsia Lymphatic: Denies swollen glands Psychiatric: Denies depression or anxiety Current Medications: Current Meds: Current Medications Medications (Trade) Dose Ordered Sig/Monie Start Time Stop Time Status Last Admin Dose Admin Ceftriaxone Sodium 1 gm/ Sodium Chloride 50 ml @ 100 mls/hr 1X ONCE 12/19/21 11:45 12/19/21 12:14 Sodium Chloride 1,000 ml @ 1,000 mls/hr 1X ONCE 12/19/21 11:45 12/19/21 12:44 Allergies: Allergies: Allergies Coded Allergies Type Severity Reaction Last Updated Verified penicillin G Allergy Severe Swell up/red. 12/19/21 Yes levofloxacin Allergy Intermediate 12/19/21 Yes aspirin Adverse Reaction Intermediate N/V 12/19/21 Yes enoxaparin sodium Adverse Reaction Intermediate Mouth swells. 12/19/21 Yes prochlorperazine edisylate Adverse Reaction Intermediate "I feel high" 12/19/21 Yes prochlorperazine maleate Adverse Reaction Intermediate 12/19/21 Yes Physical Exam: PE: Constitutional: Ill-appearing elderly female, HENT: Normocephalic, atraumatic, bilateral external ears normal, oropharynx dry, no oral exudates, nose normal. [] Eyes: PERRLA, EOMI, conjunctiva normal, no discharge. [] Neck: Normal range of motion, no tenderness, supple, no stridor. [] Cardiovascular:Heart rate regular rhythm, no murmur [] Lungs & Thorax: Bilateral breath sounds clear to auscultation [] Abdomen: Tenderness noted with lower abdomen palpation, bowel sounds are hypoactive, no pulsatile mass noted Skin: Patient's labial area noted laceration noted to the left labial majora, that extends from the outer edges of the labial to the inner edges, some scant amount of bleeding noted, ulceration noted to the inner aspect of the left labia minora an area of approximately 2 cm x 2 cm at the 10 to 12 o'clock position, patient has dry skin noted on her lower extremities along with her coccyx area no ulcerations noted. Back: No tenderness, no CVA tenderness. [] Extremities: Lower extremities decreased muscle tone noted, foot drop noted bilaterally, posterior tib pulses 1+. Neurologic: Alert and oriented X 3, patient normally is wheelchair-bound, and does not walk and has not for some time due to her MS, she has decreased sensation in her lower extremities which is normal for her due to her disease process. Patient has had mumbled speech but that could be due to the mask as well. Psychologic: Affect flat, judgement normal, mood normal. [] Current Patient Data: Labs: Laboratory Tests Test 12/19/21 11:25 12/19/21 11:55 12/19/21 13:00 Urine Collection Type U cath Urine Color Yellow Urine Clarity Turbid Urine pH 6.0 Urine Specific [place] 1.025 Urine Protein 100 mg/dl Urine Glucose (UA) Neg mg/dL Urine Ketones (Stick) Neg mg/dL Urine Blood Large Urine Nitrite Neg Urine Bilirubin Neg Urine Urobilinogen Dipstick 0.2 mg/dL Urine Leukocyte Esterase Large Urine RBC 6-10 /HPF Urine WBC Tntc /HPF Urine Squamous Epithelial Cells Mod /LPF Urine Bacteria Mod /HPF Urine Mucus Mod /LPF Urine Yeast Present /HPF White Blood Count 16.4 x10^3/uL Red Blood Count 3.48 x10^6/uL Hemoglobin 9.8 g/dL Hematocrit 29.7 % Mean Corpuscular Volume 85 fL Mean Corpuscular Hemoglobin 28 pg Mean Corpuscular Hemoglobin Concent 33 g/dL Red Cell Distribution Width 21.1 % Platelet Count 552 x10^3/uL Neutrophils (%) (Auto) 89 % Lymphocytes (%) (Auto) 7 % Monocytes (%) (Auto) 4 % Eosinophils (%) (Auto) 0 % Basophils (%) (Auto) 0 % Neutrophils # (Auto) 14.6 x10^3uL Lymphocytes # (Auto) 1.1 x10^3/uL Monocytes # (Auto) 0.6 x10^3/uL Eosinophils # (Auto) 0.0 x10^3/uL Basophils # (Auto) 0.0 x10^3/uL Segmented Neutrophils % 88 % Lymphocytes % 7 % Monocytes % 5 % Platelet Estimate Increased Anisocytosis Slight Sodium Level 130 mmol/L Potassium Level 3.1 mmol/L Chloride Level 96 mmol/L Carbon Dioxide Level 14 mmol/L Anion Gap 20 Blood Urea Nitrogen 108 mg/dL Creatinine 4.0 mg/dL Estimated GFR (Cockcroft-Gault) 11.2 BUN/Creatinine Ratio 27 Glucose Level 141 mg/dL Lactic Acid Level 1.0 mmol/L Calcium Level 9.1 mg/dL Total Bilirubin 0.3 mg/dL Aspartate Amino Transf (AST/SGOT) 13 U/L Alanine Aminotransferase (ALT/SGPT) 13 U/L Alkaline Phosphatase 146 U/L Total Protein 7.7 g/dL Albumin 2.7 g/dL Albumin/Globulin Ratio 0.5 SARS-CoV-2 Antigen (Rapid) Negative Current Medications Medications (Trade) Dose Ordered Sig/Monie Route PRN Reason Start Time Stop Time Status Last Admin Dose Admin Sodium Chloride 1,000 ml @ 1,000 mls/hr 1X ONCE IV 12/19/21 11:45 12/19/21 12:44 DC 12/19/21 12:56 Ceftriaxone Sodium 1 gm/ Sodium Chloride 50 ml @ 100 mls/hr 1X ONCE IV 12/19/21 11:45 12/19/21 12:14 DC 12/19/21 12:59 Iohexol (Omnipaque 300 Mg/ml) 75 ml 1X ONCE IV 12/19/21 12:00 12/19/21 12:03 DC 12/19/21 12:05 Iohexol (Omnipaque 300 Mg/ml) 75 ml STK-MED ONCE .ROUTE 12/19/21 12:03 12/19/21 12:03 DC Sodium Chloride 50 ml @ As Directed STK-MED ONCE .ROUTE 12/19/21 12:48 12/19/21 12:49 DC Ceftriaxone Sodium (Rocephin) 1 gm STK-MED ONCE .ROUTE 12/19/21 12:49 12/19/21 12:49 DC Vital Signs: Vital Signs Date Time Temp Pulse Resp B/P (MAP) Pulse Ox O2 Delivery O2 Flow Rate FiO2 12/19/21 15:29 89 18 117/48 (71) 99 12/19/21 15:25 16 100 Room Air 12/19/21 14:49 89 16 106/63 (77) 99 Room Air 12/19/21 14:15 87 18 137/107 (117) 100 Room Air 12/19/21 13:02 98 20 107/94 (98) 99 12/19/21 12:53 92 18 100 Room Air 12/19/21 11:45 87 18 101/82 (88) 100 12/19/21 11:15 94 16 136/71 (92) 99 12/19/21 10:51 97.9 86 18 113/66 (82) 99 Room Air Vital Signs Date Time Temp Pulse Resp B/P (MAP) Pulse Ox O2 Delivery O2 Flow Rate FiO2 12/19/21 10:51 97.9 86 18 113/66 (82) 99 Room Air EKG: EKG: [] Radiology/Procedures: Radiology/Procedures: REASON: pelvic pain with labial ulcerations noted, decrease sensation PROCEDURE: CT ABD PELV W/ IV CONTRST ONLY STUDY: CT of the abdomen and pelvis COMPARISON: Similar exam without IV contrast dated 11/19/2021. INDICATION:Pelvic pain with labial ulcerations, decreased sensation. TECHNIQUE: Contiguous axial images are obtained through the abdomen and pelvis. IV and oral contrast was administered. Sagittal and coronal reformations.. EXPOSURE: One or more of the following individualized dose reduction techniques were utilized for this examination: 1. Automated exposure control 2. Adjustment of the mA and/or kV according to patient size 3. Use of iterative reconstruction technique FINDINGS: ABDOMEN: The stomach is intrathoracic. Gallbladder is hydropic and contains numerous gallstones. There is diffuse fatty infiltration of the liver. There is mild right hydronephrosis. There is decreased cortical medullary differentiation bilaterally, which may relate medical renal insufficiency. No renal masses are identified. No hydroureter. Some subtle stranding around the body the pancreas is nonspecific but could reflect sequelae of pancreatitis. No pancreatic ductal or biliary ductal dilatation.. No other acutely concerning abnormalities of the abdominal soft tissue or osseous elements, or solid or hollow viscus organs are identified. No pathologic appearing adenopathy. Mild multifocal atherosclerosis. No free or loculated fluid collections. PELVIS: Urinary bladder is decompressed by a Chang catheter. There is a 1.5 cm disc-like radiopaque foreign body within the urinary bladder to the right of the following balloon, which has the appearance of an iatrogenic device. This is intentional it may not be properly positioned. Correlate clinically. There is a defect in the anterior urethra, with air extending into the pubic symphysis. There is some edema throughout the labia with no abscess is identified. No evidence of bowel obstruction. No other acutely concerning abnormalities of the pelvic soft tissue or osseous elements, or solid or hollow viscus organs. No suspicious adenopathy. Mild multifocal atherosclerosis. No free or loculated Fluid Collections. Mild spondylosis of the lumbosacral spine. IMPRESSION: 1. Anterior urethral defect with air extending into the adjacent pelvic soft tissues and pubic symphysis. 2. Decompressed urinary bladder, with a 1.5 cm disclike foreign body of uncertain etiology and pelvis. If this is intentional, it may be malpositioned. Correlate clinically. 3. Intrathoracic stomach. 4. Inflammatory changes about the pancreas, nonspecific. Consider pancreatitis. 5. Mild right hydronephrosis without evidence of hydroureter. 6. Abnormal cortical medullary differentiation of the kidneys, possibly due to intrinsic renal disease. This finding is bilateral and symmetrical. 7. Hydropic gallbladder with cholelithiasis. No CT evidence of acute cholecystitis. Electronically signed by: Jose De Luna MD (12/19/2021 12:36 PM) [id number][] REASON: decrease LOC PROCEDURE: CHEST AP ONLY XR CHEST 1V INDICATION: decrease LOC / Spl. Instructions: / History: . COMPARISON STUDY: Concurrent CT abdomen pelvis. FINDINGS: Lungs: Normal lung volume. No consolidation. Pleura: No pleural effusion or pneumothorax. Heart and Mediastinum: The cardiomediastinal silhouette is normal. The great vessels of the thorax are normal. Moderate-sized hiatal hernia. IMPRESSION: 1. No consolidation. 2. Moderate-sized hiatal hernia. Electronically signed by: Jeremie Carranza MD (12/19/2021 1:08 PM) [id number] Heart Score: C/O Chest Pain: No Risk Factors: Risk Factors: DM, Current or recent (<one month) smoker, HTN, HLP, family history of CAD, obesity. Risk Scores: Score 0 - 3: 2.5% MACE over next 6 weeks - Discharge Home Score 4 - 6: 20.3% MACE over next 6 weeks - Admit for Clinical Observation Score 7 - 10: 72.7% MACE over next 6 weeks - Early Invasive Strategies Course & Med Decision Making: Course & Med Decision Making Pertinent Labs and Imaging studies reviewed. (See chart for details) [address] Hickey with [employer] services at [facility] and consulted him on this patient's case, he felt that the patient needed a higher level of [employer] care and did refer her off to a another facility. 1240 spoke to transfer team Manda, gave her information and clouded images to her and she is to get back to with us regarding this case. [facility] returned call and states they are unable to accept this patient at this time, their hospital is full. Did talk to [facility] transfer team and they are agreeable to accepting this patient to [facility] is a [facility] admission. Dr. Montoya is the accepting physician. I did update family with the plan of care and they are agreeable. Sienna Disclaimer: Sienna Disclaimer: This electronic medical record was generated, in whole or in part, using a voice recognition dictation system. Departure Departure: Impression: Primary Impression: Labial erosion Additional Impressions: Genital labial ulcer Multiple sclerosis UTI (urinary tract infection) due to urinary indwelling Chang catheter Qualified Codes: T83.511A - Infection and inflammatory reaction due to indwelling urethral catheter, initial encounter; N39.0 - Urinary tract infection, site not specified Acute renal injury Hypokalemia Disposition: 02 SHORT TERM HOSPITAL Condition: STABLE Referrals: CHETAN ZARATE MD (PCP) MATT ALMAZAN APRN Dec 19, 2021 12:01
[2021-12-19] MEDS ORDERED: IOHEXOL 300 MG/ML 75 ML VIAL. ONE (12:03)
[2021-12-19 12:05] LABS: CLARITY,URINE TURBID; COLOR,URINE YELLOW; GLUCOSE,URINE NEG (NEG); NITRITE,URINE NEG (NEG); UROBILINOGEN,URINE 0.2 mg/dL (0.2 mg/dL); WBC,URINE TNTC /HPF (0-4)
[2021-12-19] MEDS: IOHEXOL 300 MG/ML 75 ML VIAL. IV ONE (12:05)
[2021-12-19 12:06] LABS: BACTERIA,URINE MOD /HPF (0-FEW); SQUAMOUS EPITHELIAL CELL,UR MOD /LPF; YEAST,URINE PRESENT /HPF
[2021-12-19 12:27] LABS: BASO % 0 % (0-3); EOS % 0 % (0-3); HEMATOCRIT 29.7 % (36.0-47.0); HEMOGLOBIN 9.8 g/dL (12.0-15.5); LYMPH # 1.1 x10^3/uL (1.0-4.8); LYMPH % 7 % (24-48); MEAN CORPUSCULAR HEMOGLOBIN 28 pg (25-35); MEAN CORPUSCULAR HGB CONC 33 g/dL (31-37); MEAN CORPUSCULAR VOLUME 85 fL (79-100); MONO # 0.6 x10^3/uL (0.0-1.1); MONO % 4 % (0-9); NEUT # 14.6 x10^3uL (1.8-7.7); NEUT % 89 % (31-73); PLATELET COUNT 552 x10^3/uL (140-400); RED BLOOD COUNT 3.48 x10^6/uL (3.50-5.40); RED CELL DISTRIBUTION WIDTH 21.1 % (11.5-14.5); WHITE BLOOD COUNT 16.4 x10^3/uL (4.0-11.0)
[2021-12-19 12:38] LABS: CALCIUM 9.1 mg/dL (8.5-10.1); GFR 11.2; POTASSIUM 3.1 mmol/L (3.5-5.1)
--- NOTE | 2021-12-19 12:38 | RAD ---
STUDY: CT of the abdomen and pelvis COMPARISON: Similar exam without IV contrast dated 11/19/2021. INDICATION:Pelvic pain with labial ulcerations, decreased sensation. TECHNIQUE: Contiguous axial images are obtained through the abdomen and pelvis. IV and oral contrast was administered. Sagittal and coronal reformations.. EXPOSURE: One or more of the following individualized dose reduction techniques were utilized for thi s examination: 1. Automated exposure control 2. Adjustment of the mA and/or kV according to patient size 3. Use of iterative reconstruction technique FINDINGS: ABDOMEN: The stomach is intrathoracic. Gallbladder is hydropic and contains numerous gallstones. Ther e is diffuse fatty infiltration of the liver. There is mild right hydronephrosis. There is decreased cortical medullary differentiation bilaterally, which may relate medical renal insufficiency. No vidal l masses are identified. No hydroureter. Some subtle stranding around the body the pancreas is nonspe cific but could reflect sequelae of pancreatitis. No pancreatic ductal or biliary ductal dilatation.. No other acutely concerning abnormalities of the abdominal soft tissue or osseous elements, or solid or hollow viscus organs are identified. No pathologic appearing adenopathy. Mild multifocal atherosc lerosis. No free or loculated fluid collections. PELVIS: Urinary bladder is decompressed by a Chang catheter. There is a 1.5 cm disc-like radiopaque f oreign body within the urinary bladder to the right of the following balloon, which has the appearanc e of an iatrogenic device. This is intentional it may not be properly positioned. Correlate clinicall y. There is a defect in the anterior urethra, with air extending into the pubic symphysis. There is s ome edema throughout the labia with no abscess is identified. No evidence of bowel obstruction. No ot her acutely concerning abnormalities of the pelvic soft tissue or osseous elements, or solid or hollo w viscus organs. No suspicious adenopathy. Mild multifocal atherosclerosis. No free or loculated Flui d Collections. Mild spondylosis of the lumbosacral spine. IMPRESSION: 1. Anterior urethral defect with air extending into the adjacent pelvic soft tissues and pubic symphy sis. 2. Decompressed urinary bladder, with a 1.5 cm disclike foreign body of uncertain etiology and pelvis . If this is intentional, it may be malpositioned. Correlate clinically. 3. Intrathoracic stomach. 4. Inflammatory changes about the pancreas, nonspecific. Consider pancreatitis. 5. Mild right hydronephrosis without evidence of hydroureter. 6. Abnormal cortical medullary differentiation of the kidneys, possibly due to intrinsic renal diseas e. This finding is bilateral and symmetrical. 7. Hydropic gallbladder with cholelithiasis. No CT evidence of acute cholecystitis. Electronically signed by: Jose De Luna MD (12/19/2021 12:36 PM) [id number]
[2021-12-19 12:43] LABS: ALBUMIN 2.7 g/dL (3.4-5.0); ALBUMIN/GLOBULIN RATIO 0.5 (1.0-1.7); TOTAL BILIRUBIN 0.3 mg/dL (0.2-1.0); TOTAL PROTEIN 7.7 g/dL (6.4-8.2)
[2021-12-19] MEDS ORDERED: IV NORMAL SALINE 50ML 50 ML ONE (12:48)
[2021-12-19] MEDS ORDERED: cefTRIAXone SODIUM 1 GM VIAL ONE (12:49)
[2021-12-19] MEDS: IV NORMAL SALINE 1,000ML 1,000 ML IV ONE ×2 (12:56→15:24)
--- NOTE | 2021-12-19 13:10 | RAD ---
XR CHEST 1V INDICATION: decrease LOC / Spl. Instructions: / History: . COMPARISON STUDY: Concurrent CT abdomen pelvis. FINDINGS: Lungs: Normal lung volume. No consolidation. Pleura: No pleural effusion or pneumothorax. Heart and Mediastinum: The cardiomediastinal silhouette is normal. The great vessels of the thorax ar e normal. Moderate-sized hiatal hernia. IMPRESSION: 1. No consolidation. 2. Moderate-sized hiatal hernia. Electronically signed by: Jeremie Carranza MD (12/19/2021 1:08 PM) [id number]
[2021-12-19 13:16] LABS: % LYMPHS 7 % (24-48); % MONOS 5 % (0-10); % SEGS 88 % (35-66); ANISOCYTOSIS SLIGHT; PLT ESTIMATE INCREASED (ADEQUATE)
[2021-12-19] MEDS ORDERED: ONDANSETRON PF 4 MG/2 ML VIAL. ONE (17:22)
[2021-12-19] MEDS: ONDANSETRON PF 4 MG/2 ML VIAL. IVP ONE (17:24)
[2021-12-19 21:04] VITALS: BP 102/52
== END 2021-12-19 21:21 | disposition short-term general hospital (02) ==
LOC: ER 10:44
DX: U07.1 COVID-19 (principal); S31.41XA Laceration without foreign body of vagina and vulva, initial encounter; T83.511A Infection and inflammatory reaction due to indwelling urethral catheter, initial encounter; N76.6 Ulceration of vulva; N17.9 Acute kidney failure, unspecified; E87.6 Hypokalemia; G35 Multiple sclerosis; K21.9 Gastro-esophageal reflux disease without esophagitis; I10 Essential (primary) hypertension; I26.99 Other pulmonary embolism without acute cor pulmonale; Z87.440 Personal history of urinary (tract) infections; Z86.718 Personal history of other venous thrombosis and embolism; Z88.0 Allergy status to penicillin; Z88.1 Allergy status to other antibiotic agents; Z88.6 Allergy status to analgesic agent; Z88.8 Allergy status to other drugs, medicaments and biological substances
CPT/HCPCS: 71045; 74177; 80053; 81001; 83605; 85007; 85025; 87040; 87077; 87086; 87426; 96361; 96365; 96366; 96375; 96376; 99285; C9803; J0696; J2405; J3010; J7030; Q9967; U0003

== ENCOUNTER 2022-01-20 16:14 | Emergency (ER) | payer MEDICARE, BC, OTHER ==
[~2022-01-20] VITALS: Ht 137.2 cm; Wt 57.0 kg
[2022-01-20] MEDS ORDERED: IV NORMAL SALINE 1,000ML 1,000 ML IV ONE ×2 (17:30→18:45)
[2022-01-20 17:40] LABS: BASO # 0.1 x10^3/uL (0.0-0.2); BASO % 1 % (0-3); EOS % 0 % (0-3); HEMATOCRIT 31.5 % (36.0-47.0); LYMPH # 1.1 x10^3/uL (1.0-4.8); LYMPH % 6 % (24-48); MEAN CORPUSCULAR HEMOGLOBIN 30 pg (25-35); MEAN CORPUSCULAR HGB CONC 32 g/dL (31-37); MEAN CORPUSCULAR VOLUME 94 fL (79-100); MONO # 0.3 x10^3/uL (0.0-1.1); MONO % 2 % (0-9); NEUT # 15.9 x10^3uL (1.8-7.7); NEUT % 91 % (31-73); PLATELET COUNT 481 x10^3/uL (140-400); RED BLOOD COUNT 3.37 x10^6/uL (3.50-5.40); RED CELL DISTRIBUTION WIDTH 17.1 % (11.5-14.5); WHITE BLOOD COUNT 17.5 x10^3/uL (4.0-11.0)
[2022-01-20 17:43] LABS: CALCIUM 7.3 mg/dL (8.5-10.1); CREATININE 1.9 mg/dL (0.6-1.0); GFR 26.4; POTASSIUM 3.1 mmol/L (3.5-5.1)
--- NOTE | 2022-01-20 17:49 | RAD ---
XR CHEST 1V Clinical Indication: Reason: AMS Comparison: AP chest December 19, 2021. Findings: The cardiomediastinal silhouette is normal. Moderate-sized hiatal hernia. Lungs are clear. There is n o pneumothorax. No pleural effusion is appreciated. No acute bone abnormality. IMPRESSION: 1. No acute cardiopulmonary process. 2. Moderate-sized hiatal hernia. Electronically signed by: Garcia Lemons MD (01/20/2022 5:46 PM) [facility]
--- NOTE | 2022-01-20 17:50 | PHYS DOC ---
Past History Past Medical History: DVT, GERD, Hypertension, UTI, Other Additional Past Medical Histor: multiple sclerosis, pulmonary embolism, BLADDER SPASMS (AMINA CERVANTES APRN) Past Surgical History: Other Additional Past Surgical Histo: SPINAL SURGERY (AMINA CERVANTES APRN) Smoking: Non-smoker Alcohol Use: None Drug Use: None (AMINA CERVANTES APRN) General Adult EDM: Chief Complaint: MULTIPLE COMPLAINTS HPI: HPI: Patient is a 67-year-old female who presents with shakiness. Patient states "I went out to lunch my birthday when I got home I took a nap". "I felt really shaky and could not hardly even use the phone, so I called 911". Patient states she just feels weak and tired. Denies chest pain, shortness of breath, nausea/vomiting/diarrhea. No fevers at home. Patient reports she was just discharged from the hospital Wednesday and had been there for a month. Patient has a history of MS and is wheelchair bound. Patient also has history of hypertension, UTIs. (AMINA CERVANTES APRN) Review of Systems: Review of Systems: ROS At least 10 ROS systems have been reviewed and are negative except as documented in the HPI. General: Negative except as outlined in HPI above. Skin: Negative except as outlined in HPI above. HEENT: Negative except as outlined in HPI above. Neck: Negative except as outlined in HPI above. Respiratory: Negative except as outlined in HPI above.. Cardiovascular: Negative except as outlined in HPI above. Abdomen: Negative except as outlined in HPI above. : Negative except as outlined in HPI above. Back/MSK: Negative except as outlined in HPI above. Neuro: Negative except as outlined in HPI above. Psych: Negative except as outlined in HPI above. (AMINA CERVANTES APRN) Current Medications: Current Meds: Current Medications Medications (Trade) Dose Ordered Sig/[place] Start Time Stop Time Status Last Admin Dose Admin Sodium Chloride 1,000 ml @ 1,000 mls/hr 1X ONCE 01/20/22 17:30 01/20/22 18:29 (AMINA CERVANTES APRN) Allergies: Allergies: Allergies Coded Allergies Type Severity Reaction Last Updated Verified penicillin G Allergy Severe Swell up/red. 01/20/22 Yes levofloxacin Allergy Intermediate 01/20/22 Yes aspirin Adverse Reaction Intermediate N/V 01/20/22 Yes enoxaparin sodium Adverse Reaction Intermediate Mouth swells. 01/20/22 Yes prochlorperazine edisylate Adverse Reaction Intermediate "I feel high" 01/20/22 Yes prochlorperazine maleate Adverse Reaction Intermediate 01/20/22 Yes (AMINA CERVANTES APRN) Physical Exam: PE: Constitutional: Well developed, well nourished, no acute distress, non-toxic appearance. [] HENT: Normocephalic, bilateral external ears normal, oropharynx moist, no oral exudates, nose normal. [] Eyes: PERRLA, conjunctiva normal, no discharge. [] Neck: Normal range of motion, no tenderness, supple, no stridor. [] Cardiovascular:Heart rate regular rhythm, no murmur [] Lungs & Thorax: Bilateral breath sounds clear to auscultation [] Abdomen: Bowel sounds normal, soft, no tenderness, no masses, no pulsatile masses. [] Skin: Warm, dry, no erythema, no rash. [] Back: No tenderness, no CVA tenderness. [] Extremities: No tenderness, no cyanosis, no clubbing, ROM intact, no edema. [] Neurologic: Alert and oriented X 3, normal motor function, normal sensory function, no focal deficits noted. [] Psychologic: Affect normal, judgement normal, mood normal. [] (AMINA CERVANTES [employer]) Current Patient Data: Labs: Laboratory Tests Test 01/20/22 16:54 White Blood Count 17.5 x10^3/uL (4.0-11.0) H Red Blood Count 3.37 x10^6/uL (3.50-5.40) L Hemoglobin 10.0 g/dL (12.0-15.5) L Hematocrit 31.5 % (36.0-47.0) L Mean Corpuscular Volume 94 fL (79-100) Mean Corpuscular Hemoglobin 30 pg (25-35) Mean Corpuscular Hemoglobin Concent 32 g/dL (31-37) Red Cell Distribution Width 17.1 % (11.5-14.5) H Platelet Count 481 x10^3/uL (140-400) H Neutrophils (%) (Auto) 91 % (31-73) H Lymphocytes (%) (Auto) 6 % (24-48) L Monocytes (%) (Auto) 2 % (0-9) Eosinophils (%) (Auto) 0 % (0-3) Basophils (%) (Auto) 1 % (0-3) Neutrophils # (Auto) 15.9 x10^3uL (1.8-7.7) H Lymphocytes # (Auto) 1.1 x10^3/uL (1.0-4.8) Monocytes # (Auto) 0.3 x10^3/uL (0.0-1.1) Eosinophils # (Auto) 0.0 x10^3/uL (0.0-0.7) Basophils # (Auto) 0.1 x10^3/uL (0.0-0.2) Platelet Estimate Pending Sodium Level 145 mmol/L (136-145) Potassium Level 3.1 mmol/L (3.5-5.1) L Chloride Level 106 mmol/L (98-107) Carbon Dioxide Level 20 mmol/L (21-32) L Anion Gap 19 (6-14) H Blood Urea Nitrogen 19 mg/dL (7-20) Creatinine 1.9 mg/dL (0.6-1.0) H Estimated GFR (Cockcroft-Gault) 26.4 BUN/Creatinine Ratio 10 (6-20) Glucose Level 139 mg/dL (70-99) H Calcium Level 7.3 mg/dL (8.5-10.1) L Magnesium Level Pending Total Bilirubin Pending Aspartate Amino Transferase (AST) Pending Alanine Aminotransferase (ALT) Pending Alkaline Phosphatase Pending Total Protein Pending Albumin Pending Albumin/Globulin Ratio Pending Lipase Pending Vital Signs: Vital Signs Date Time Temp Pulse Resp B/P (MAP) Pulse Ox O2 Delivery O2 Flow Rate FiO2 01/20/22 16:20 98.9 109 24 122/88 (99) 99 (AMINA CERVANTES [employer]) EKG: EKG: [] XR CHEST 1V Clinical Indication: Reason: AMS Comparison: AP chest December 19, 2021. Findings: The cardiomediastinal silhouette is normal. Moderate-sized hiatal hernia. Lungs are clear. There is no pneumothorax. No pleural effusion is appreciated. No acute bone abnormality. IMPRESSION: 1. No acute cardiopulmonary process. 2. Moderate-sized hiatal hernia. Electronically signed by: Garcia Lemons MD (01/20/2022 5:46 PM) [facility] (AMINA CERVANTES APRN) Radiology/Procedures: Radiology/Procedures: [] (AMINA CERVANTES APRN) Heart Score: C/O Chest Pain: No Risk Factors: Risk Factors: DM, Current or recent (<one month) smoker, HTN, HLP, family history of CAD, obesity. Risk Scores: Score 0 - 3: 2.5% MACE over next 6 weeks - Discharge Home Score 4 - 6: 20.3% MACE over next 6 weeks - Admit for Clinical Observation Score 7 - 10: 72.7% MACE over next 6 weeks - Early Invasive Strategies (AMINA CERVANTES APRN) Course & Med Decision Making: Course & Med Decision Making Pertinent Labs and Imaging studies reviewed. (See chart for details) [] 67-year-old female presents with a feeling of shakiness. Patient was recently discharged from the hospital after being admitted since the middle of December. Afebrile. Patient was admitted to [facility] for a labial tear. Patient was seen by urologist at [facility] who removed the indwelling catheter. Patient had the catheter for over 10 years and it was causing breakdown. Patient also had a bladder stone removed. Patient is unsure of when she was admitted last for an MS exacerbation. Vaginal exam shows cellulitis to the inner, left portion of labia. I was not in charge of patient's care for original visit to compare progression of healing. Work-up in ER consisted of CBC, CMP, lactic acid, CRP, urinalysis. WBC, 17.5, potassium of 3.1. Patient given 40 mEq of potassium. Anion gap 19, BUN 19, creatinine 1.9. Patient given liter bolus to treat dehydration. Lactic acid was 5.5. Patient given second liter bolus. Patient started on vancomycin, Flagyl, Rocephin. Discussed all results with patient and family. Explained to patient that she would need to be admitted to the hospital for further management and IV antibiotics. Spoke with hospitalist at [facility], Dr. Marsh. Patient will be admitted for sepsis syndrome, recent UTI, genital cellulitis. (AMINA CERVANTSE APRN) Course & Med Decision Making INSERTION CHECKLIST Please use this checklist when inserting central lines to ensure that all elements of the bundle are being utilized for optimal outcomes for our patients 1. Patient education - Educated the patient on insertion procedure, line care and infection prevention. 2. Hand Hygiene - Wash your hands before starting the procedure. 3. Perform a "Time Out" prior to starting procedure with nursing staff and patient. 4. Maintain sterile barrier - central line insertion is a sterile procedure. 5. Chlorhexidine - Prep insertion site by using a Chlorhexidine scrub prior to insertion. 6. Site selection - Please avoid the femoral artery as an insertion site when possible. 7. Documentation - Document the procedure in EHR. Please include all the above steps, plus utilization of this checklist. This is a Joint Commission Documentation RequirementCENTRAL LINE INSERTION CHECKLIST Please use this checklist when inserting central lines to ensure that all elements of the bundle are being utilized for optimal outcomes for our patients 1. Patient education - Educated the patient on insertion procedure, line care and infection prevention. 2. Hand Hygiene - Wash your hands before starting the procedure. 3. Perform a "Time Out" prior to starting procedure with nursing staff and patient. 4. Maintain sterile barrier - central line insertion is a sterile procedure. 5. Chlorhexidine - Prep insertion site by using a Chlorhexidine scrub prior to insertion. 6. Site selection - Please avoid the femoral artery as an insertion site when possible. 7. Documentation - Document the procedure in EHR. Please include all the above steps, plus utilization of this checklist. This is a Joint Commission Documentation RequirementCENTRAL LINE INSERTION CHECKLIST Please use this checklist when inserting central lines to ensure that all elements of the bundle are being utilized for optimal outcomes for our patients 1. Patient education - Educated the patient on insertion procedure, line care and infection prevention. 2. Hand Hygiene - Wash your hands before starting the procedure. 3. Perform a "Time Out" prior to starting procedure with nursing staff and patient. 4. Maintain sterile barrier - central line insertion is a sterile procedure. 5. Chlorhexidine - Prep insertion site by using a Chlorhexidine scrub prior to insertion. 6. Site selection - Please avoid the femoral artery as an insertion site when possible. 7. Documentation - Document the procedure in EHR. Please include all the above steps, plus utilization of this checklist. This is a Joint Commission Documentation Qgwqetderry-E-d-e- -H-e-s-s- -n-o-t-e- -p-r-o-i-r- -s-h-i-f-t- -x-y-r-n-g-e- -a-n-d- -s-p-i-n-s-f-e-r-.- -A-H-r-p-e-x-s-i-o-n-:- -1-.- - - -S-I-R-S-/- -P-Q-W-S-I-S- -2-.- - - -R-S-C-N-R-E--N-S-I-O-N- -3-.- - - -D-M- -4-.- -I-O-C-X-J-N-K-D-T-S-I-S- -1-7-.- -5-.- -D-H-Z-E-X-B-L-E-M-I-A- -6-.- -R-E-N-A-L- -I-N-S-U-F-.- - - - -B-U-N- -1-9-/-C-R-E-A- -1-.-9- -7-.- -X-F-J-V-W-N-N-K-W-S-I-U-M- -1-.-3- -8-.- -C-H-F--- -W-X-T-V-A-T-E-D- -B-N-P- -1-5-6-8- -9-.- -Y-J-I-E-O-W-J-J-R-T-I-O-N- - - -A-L-B-.- -2-.-3- -1-0- -Q-M-Z-V-A-T-E-D- -Q-B-J-T-I-C- -A-C-I-D- -5-.-5- -1-1-.-D-N-V-M-I-A- -1-2-.-H-B-T-F-U-K-I-T-I-S- -P-t-.- -c-c-w-n-s-f-e-r- -t-o- -P-M-C--- -D-r-.- -B-d-j-p-l-e- -p-e-r- - - -H-e-s-s- -a-n-d- -D-r-.- -W-a-t-t-s- -n-o-t-e-s-.- - - -P-h-m-t-i-c-a-l- -c-a-r-e- -3-0- -m-i-n--- -n-o-t- -q-y-o-n-t-i-n-g- -i-p-d-n-v-n-d-u-r-e- --- -g-f-m-t-r-a-l- -l-i-n-e-.- (RAFFI CLARKE MD) Dragon Disclaimer: Dragon Disclaimer: This electronic medical record was generated, in whole or in part, using a voice recognition dictation system. (AMINA CERVANTES APRN) Departure Departure: Impression: Primary Impression: Sepsis Qualified Codes: A41.9 - Sepsis, unspecified organism Additional Impressions: Cellulitis of female genitalia Recent urinary tract infection Disposition: HOME / SELF CARE / HOMELESS Condition: STABLE Referrals: CHETAN ZARATE MD (PCP) Attending Signature Attending Signature I have reviewed the PA/MEDICATION COORDINATOR's note and plan of care. I was available for consultation as needed during the patient's visit in the emergency department. I agree with the clinical impression, plan, and disposition. (KYLE CARSON DO) Attending Signature I have participated in the care of this patient and I have reviewed and agree with all pertinent clinical information above including history, exam, and recommendations. (RAFFI CLARKE MD) Attending Co-Sign Attending Co-Sign The patient was seen and interviewed as well as examined at the bedside. The chela rt was reviewed. The case was discussed. Agree with the plan of care. (RAFFI CLARKE MD) Dragon Disclaimer This chart was dictated in whole or in part using Voice Recognition software in a busy, high-work load, and often noisy Emergency Department environment. It may contain unintended and wholly unrecognized errors or omissions. (RAFFI CLARKE MD) Dragon Disclaimer This chart was dictated in whole or in part using Voice Recognition software in a busy, high-work load, and often noisy Emergency Department environment. It may contain unintended and wholly unrecognized errors or omissions. (RAFFI CLARKE MD) Dragon Disclaimer This chart was dictated in whole or in part using Voice Recognition software in a busy, high-work load, and often noisy Emergency Department environment. It may contain unintended and wholly unrecognized errors or omissions. (RAFFI CLARKE MD) BRIEF OPERATIVE NOTE Date if Service: DATE: 01/21/22 TIME: 17:20 (RAFFI CLARKE MD) Brief Operative Note: Pre-Op Diagnosis: Central line placement note: Hypotension-need for pressors support and multiple IV draws. Establish IV access for pressors-and medications Risk and benefits discussed with patient. Signed permit. Patient moved to trauma area for adequate lighting and access.- Use of sterile precautions hat, mask, draping, gloves, gown etc. Left chest and neck prepped with kit prep.-Left IJ and subclavian area Patient placed in Trendelenburg position. Patient received 3 cc of lidocaine injection at subclavian and IJ site. Cannulated subclavian with 1 stick. Return of venous blood. Wire placed through the needle and then dilation with passage of a 3 port central line. Return of venous blood all 3 ports. Biopatch placed. Sutured in place. OpSite placed. Position confirmed on chest x-ray. Levophed started for pressure support and titrated for effect. Patient tolerated procedure well. Note the strike to pass just above are computer error- ( They are part of this pt. chart) (RAFFI CLARKE MD) AMINA CERVANTES APRN Jan 20, 2022 17:50 RAFFI CLARKE MD Jan 20, 2022 19:09 CARSON,KYLE Shea DO Jan 20, 2022 22:56
[2022-01-20 17:59] LABS: ALBUMIN 2.3 g/dL (3.4-5.0); ALBUMIN/GLOBULIN RATIO 0.5 (1.0-1.7); MAGNESIUM 1.3 mg/dL (1.8-2.4); TOTAL BILIRUBIN 0.4 mg/dL (0.2-1.0); TOTAL PROTEIN 6.5 g/dL (6.4-8.2)
[2022-01-20] MEDS ORDERED: HYDROcodone/APAP 5/325MG 1 TAB TABLET PO ONE (18:30)
[2022-01-20] MEDS ORDERED: VANCOMYCIN 0.75 GM in IV NORMAL SALINE 250ML 250 ML IV SCH (19:09)
[2022-01-20] MEDS ORDERED: IV NORMAL SALINE 250ML 250 ML ONE (19:44)
[2022-01-20] MEDS ORDERED: IV NORMAL SALINE 50ML 50 ML ONE (19:44)
[2022-01-20] MEDS ORDERED: cefTRIAXone SODIUM 1 GM VIAL ONE (19:45)
[2022-01-20] MEDS ORDERED: VANCOMYCIN 1 GM VIAL. ONE (19:45)
[2022-01-20] MEDS: POTASSIUM CHLORIDE 20 MEQ TABLET.ER. PO ONE ×2 (19:47→23:15)
[2022-01-20 20:50] LABS: % LYMPHS 5 % (24-48); % MONOS 1 % (0-10); % SEGS 94 % (35-66); ANISOCYTOSIS SLIGHT; PLT ESTIMATE ADEQUATE (ADEQUATE)
[2022-01-20 21:17] LABS: BACTERIA,URINE FEW /HPF (0-FEW); CLARITY,URINE CLOUDY; COLOR,URINE YELLOW; GLUCOSE,URINE NEG (NEG); NITRITE,URINE NEG (NEG); RBC,URINE TNTC /HPF (0-2); SQUAMOUS EPITHELIAL CELL,UR FEW /LPF; UROBILINOGEN,URINE 0.2 mg/dL (0.2 mg/dL)
[2022-01-20] MEDS ORDERED: NOREPINEPHRINE BITARTRATE 8 MG in IV DEXTROSE 5% 250 ML IV PRN ×2 (22:15→22:45)
--- NOTE | 2022-01-20 22:44 | RAD ---
Exam: Chest one view INDICATION: Central line placement TECHNIQUE: Frontal view of the chest Comparisons: None FINDINGS: Right subclavian line with tip at the atrial caval junction. The cardiomediastinal silhouette and pulmonary vessels are within normal limits. The lung and pleural spaces are clear. IMPRESSION: Lines and tubes described above. Electronically signed by: Ar Pino MD (01/20/2022 10:41 PM) [facility]
[2022-01-20] MEDS ORDERED: GELATIN SPONGE SIZE 12-7MM SPONGE. ONE (23:05)
[2022-01-20 23:30] VITALS: BP 116/66
[2022-01-20] MEDS ORDERED: GELATIN SPONGE SIZE 12-7MM SPONGE. TP ONE (23:30)
--- NOTE | 2022-01-21 06:37 | EKG ---
[address] [address] Test Date: 2022-01-20 Test Time: 18:28:28 Pat Name: EVERETT MONTALVO Department: Room: Gender: F Clinical Research Assistant: : [id number] Requested By: AMINA CERVANTES Order Number: [id number] Reading MD: Ronal Andino Measurements Intervals [place] Rate: 93 P: -19 DC: 122 QRS: -9 QRSD: 66 T: 11 QT: 414 QTc: 518 Interpretive Statements SINUS RHYTHM LEFTWARD AXIS PROLONGED QT Electronically Signed On 01-23-2022 13:39:08 CDT by Ronal Andino
== END 2022-01-20 23:40 | disposition short-term general hospital (02) ==
LOC: ER 16:14
DX: A41.9 Sepsis, unspecified organism (principal); N76.4 Abscess of vulva; K21.9 Gastro-esophageal reflux disease without esophagitis; I10 Essential (primary) hypertension; G35 Multiple sclerosis; Z87.440 Personal history of urinary (tract) infections; Z86.718 Personal history of other venous thrombosis and embolism; Z86.711 Personal history of pulmonary embolism; Z88.0 Allergy status to penicillin; Z88.1 Allergy status to other antibiotic agents; Z88.6 Allergy status to analgesic agent; Z88.8 Allergy status to other drugs, medicaments and biological substances
CPT/HCPCS: 36415; 36556; 71045; 80053; 81001; 83605; 83690; 83735; 83880; 84484; 85007; 85025; 86140; 87040; 87076; 93005; 96361; 96365; 96366; 96368; 99285; J0696; J3370; J3490; J7030; J7050